=== PATIENT | male | born 1990 | race Caucasian/White ===

== ENCOUNTER 2017-01-28 17:33 | Inpatient (IN) | payer MEDICARE, MEDICAID ==
--- NOTE | 2017-01-28 18:39 | ED ---
General Adult HPI - General Source: patient, family, RN notes reviewed Mode of arrival: ambulatory Limitations: no limitations <Dayday Skaggs - Last Filed: 01/28/17 18:36> <Dayday Hooks - Last Filed: 01/29/17 01:39> - General Chief complaint: Psychiatric Symptoms Stated complaint: MENTAL HEALTH Time Seen by Provider: 01/28/17 18:18 - History of Present Illness Initial comments: 26 yo male presenting for evaluation of psychiatric symptoms, and alcoholism. Patient denies current suicidal ideation, however he states he tends suicide at times. Denies homicidal ideation. Patient has had multiple inpatient psychiatric admissions. He is currently on Geodon which he does not like to take. Patient is unable to clearly articulate his symptoms. He states he has been on the cover of [employer] today and that he is very famous. 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 ( Dayday Skaggs) - Related Data Home Medications Medication Instructions Recorded Confirmed Gabapentin [Neurontin] 400 mg PO BID 01/28/17 01/28/17 Multivitamins, Thera [Multivitamin 1 tab PO DAILY 01/28/17 01/28/17 (formulary)] Topiramate [Topamax] 25 mg PO BID 01/28/17 01/28/17 Ziprasidone [Geodon] 60 mg PO BID 01/28/17 01/28/17 Allergies Allergy/AdvReac Type Severity Reaction Status Date / Time aripiprazole [From Abilify] Allergy Swelling Verified 01/28/17 17:55 Review of Systems ROS Other: All systems not noted in ROS Statement are negative. <Dayday Skaggs - Last Filed: 01/28/17 18:36> ROS Other: All systems not noted in ROS Statement are negative. <Dayday Hooks - Last Filed: 01/29/17 01:39> ROS Statement: Those systems with pertinent positive or pertinent negative responses have been documented in the HPI. Past Medical History Past Medical History: No Reported History History of Any Multi-Drug Resistant Organisms: None Reported Past Surgical History: No Surgical Hx Reported Past Psychological History: Bipolar Smoking Status: Current every day smoker Past Alcohol Use History: Abuse, Daily Past Drug Use History: Marijuana <Dayday Skaggs - Last Filed: 01/28/17 18:36> General Exam Limitations: no limitations General appearance: alert, in no apparent distress Head exam: Present: atraumatic, normocephalic Eye exam: Present: normal appearance, PERRL ENT exam: Present: normal exam, mucous membranes moist Neck exam: Present: normal inspection. Absent: tenderness Respiratory exam: Present: normal lung sounds bilaterally. Absent: respiratory distress Cardiovascular Exam: Present: regular rate, normal rhythm GI/Abdominal exam: Present: soft. Absent: distended, tenderness Extremities exam: Present: normal inspection, normal capillary refill. Absent: pedal edema Psychiatric exam: Present: agitated, manic Skin exam: Present: warm, dry, intact <Dayday Skaggs - Last Filed: 01/28/17 18:36> Course <Dayday Skaggs - Last Filed: 01/28/17 18:36> <Dayday Hooks - Last Filed: 01/29/17 01:39> Vital Signs 01/28/17 01/28/17 17:51 21:56 Temperature 98.1 F 97.8 F Pulse Rate 94 91 Respiratory 20 16 Rate Blood Pressure 135/89 132/72 O2 Sat by Pulse 98 99 Oximetry - Reevaluation(s) Reevaluation #1: 01/29/17 01:39 The patient was evaluated by psychiatric service after he was deemed to be sober. Patient will be admitted for inpatient care. (Dayday Hooks) Medical Decision Making <Dayday Skaggs - Last Filed: 01/28/17 18:36> <Dayday Hooks - Last Filed: 01/29/17 01:39> - Medical Decision Making Patient's breath alcohol is 240. Urine drug screen is pending. Awaiting clinical sobriety for psychiatric evaluation. Patient be signed out to the oncoming physician. (Dayday Skaggs) - Lab Data Lab Results 01/28/17 Range/Units 18:00 Urine Opiates Screen Not Detected (NotDetected) Ur Oxycodone Screen Not Detected (NotDetected) Urine Methadone Screen Not Detected (NotDetected) Ur Propoxyphene Screen Not Detected (NotDetected) Ur Barbiturates Screen Not Detected (NotDetected) U Tricyclic Antidepress Not Detected (NotDetected) Ur Phencyclidine Scrn Not Detected (NotDetected) Ur Amphetamines Screen Not Detected (NotDetected) U Methamphetamines Scrn Not Detected (NotDetected) U Benzodiazepines Scrn Not Detected (NotDetected) Urine Cocaine Screen Not Detected (NotDetected) U Marijuana (THC) Screen Not Detected (NotDetected) Disposition <Dayday Skaggs - Last Filed: 01/28/17 18:36> <Dayday Hooks - Last Filed: 01/29/17 01:39> Clinical Impression: Depression, Suicidal ideation, Alcohol intoxication Disposition: TRANSFER TO PSYCH HOSP/UNIT Condition: Stable Referrals: Jessee Wills DO [Primary Care Provider] - 1-2 days
[2017-01-28] MEDS ORDERED: NICOTINE 14MG/24HR PATCH TRANSDERM STA (20:23)
[2017-01-29] MEDS ORDERED: MAG HYDROX/AL HYDROX/SIMETH 30 ML CUP PO PRN (01:54)
[2017-01-29] MEDS ORDERED: ZIPRASIDONE 20 MG VIAL IM PRN (01:54)
[2017-01-29] MEDS ORDERED: MAGNESIUM HYDROXIDE 2,400 MG/10 ML CUP PO PRN (01:54)
[2017-01-29] MEDS ORDERED: ACETAMINOPHEN TAB 325 MG TAB PO PRN (01:54)
[2017-01-29] MEDS ORDERED: LORazepam 1 MG TAB PO PRN (01:54)
[2017-01-29 06:27] VITALS: BMI 21.2
[2017-01-29 08:57] LABS: Basophils # (A) 0.1 k/uL (0-0.2); Basophils % (A) 1 %; CH 35.6; CHCM 34.5; Eosinophils # (A) 0.1 k/uL (0-0.7); Eosinophils % (A) 2 %; HCT 51.1 % (39.0-53.0); HDW 2.01; HGB 17.1 gm/dL (13.0-17.5); Luc # (Auto) 0.14; Luc % (Auto) 2; Lymphocytes # (A) 1.9 k/uL (1.0-4.8); Lymphocytes % (A) 25 %; MCH 34.7 pg (25.0-35.0); MCHC 33.6 g/dL (31.0-37.0); MCV 103.5 fL (80.0-100.0); Macrocytosis Slight; Mean Platelet Volume 7.5; Monocytes # (A) 0.5 k/uL (0-1.0); Monocytes % (A) 7 %; Neutrophils # (A) 4.9 k/uL (1.3-7.7); Neutrophils % (A) 64 %; RBC 4.94 m/uL (4.30-5.90); RDW 13.3 % (11.5-15.5); WBC 7.7 k/uL (3.8-10.6); WBC (Perox) 7.69
[2017-01-29 09:23] LABS: ALT 49 U/L (21-72); AST 41 U/L (17-59); Alkaline Phosphatase 59 U/L (38-126); Anion Gap 10 mmol/L; Blood Urea Nitrogen 8 mg/dL (9-20); Calcium 9.6 mg/dL (8.4-10.2); Carbon Dioxide 31 mmol/L (22-30); Chloride 98 mmol/L (98-107); Glucose 145 mg/dL (74-99); Non-African American GFR(MDRD) >60 (>60 ml/min/1.73 sqM); Potassium 4.7 mmol/L (3.5-5.1); Sodium 139 mmol/L (137-145); Total Protein 7.4 g/dL (6.3-8.2)
[2017-01-29] MEDS: NICOTINE 14MG/24HR PATCH TRANSDERM SCH (09:57)
--- NOTE | 2017-01-29 13:26 | P.MDCNMH ---
History of Present Illness H&P Date: 01/29/17 Chief Complaint: Bipolar disorder This is a 26-year-old male patient of Dr. Hernandez with no significant past medical history other than bipolar and tobacco use and dependence and alcohol abuse. Patient states he follows with Dr. Cardoso one time a year or less frequently for physical exams only. Patient states that he is drinking 2 bottles of wine per day or 15 pack of beer per day. He came into [facility] emergency center for evaluation and he did relate that he had suicidal thoughts at times but during this evaluation, patient denies any suicidal thoughts but states he threatens it to get attention. He has had previous mental health admissions at other facilities and apparently when he was 20 or 21 years old he was hospitalized at [facility] mental health unit. Patient does not have flight of ideas and difficulty focusing on questions asked. He is cooperative. He is denying any physical concerns at this time but does state that he has had trouble with insomnia. Review of Systems All systems: negative Constitutional: Denies chills, Denies fever Eyes: denies blurred vision, denies pain Ears, nose, mouth and throat: Denies headache, Denies sore throat Cardiovascular: Denies chest pain, Denies shortness of breath Respiratory: Denies cough Gastrointestinal: Denies abdominal pain, Denies diarrhea, Denies nausea, Denies vomiting Musculoskeletal: Denies myalgias Integumentary: Denies pruritus, Denies rash Neurological: Denies numbness, Denies weakness Psychiatric: Reports depression, Reports mood swings, Denies anxiety, Denies suicidal ideation Endocrine: Denies fatigue, Denies weight change Past Medical History Past Medical History: No Reported History History of Any Multi-Drug Resistant Organisms: None Reported Past Surgical History: No Surgical Hx Reported Smoking Status: Current every day smoker Additional Past Alcohol Use History / Comment(s): Patient is a smoker of one pack per day since he was 17 years of age. He does have history of marijuana use and Adderall abuse but he denies any recently. He denies any marijuana use. He is drinking 2 bottles of wine per day or 15 pack of beer per day. - Past Family History Father Additional Family Medical History / Comment(s): Father is alive at age 52 with history of alcohol abuse. Mother Additional Family Medical History / Comment(s): Mother is alive at age 51 with history of diabetes. Patient does not have any brothers. Patient has 2 sisters and one has anxiety. Medications and Allergies Home Medications Medication Instructions Recorded Confirmed Type Gabapentin [Neurontin] 400 mg PO BID 01/28/17 01/29/17 History Multivitamins, Thera [Multivitamin 1 tab PO DAILY 01/28/17 01/29/17 History (formulary)] Topiramate [Topamax] 25 mg PO BID 01/28/17 01/29/17 History Ziprasidone [Geodon] 60 mg PO BID 01/28/17 01/29/17 History Allergies Allergy/AdvReac Type Severity Reaction Status Date / Time aripiprazole [From Abilify] Allergy Swelling Verified 01/29/17 06:27 Physical Exam Vitals: Vital Signs Temp Pulse Pulse Resp BP BP Pulse Ox 01/29/17 05:46 96.7 F L 78 16 124/60 01/29/17 02:46 98.3 F 89 17 128/76 99 01/28/17 21:56 97.8 F 91 16 132/72 99 01/28/17 17:51 98.1 F 94 20 135/89 98 Intake and Output 01/28/17 01/29/17 01/29/17 22:59 06:59 14:59 Other: Weight 68.946 kg 68.95 kg Gen: This is a 26-year-old male. He is cooperative and appears to be in no acute distress. Patient does have difficulty staying on topic. HEENT: Head is atraumatic, normocephalic. Pupils equal, round. Sclerae is anicteric. NECK: Supple. No JVD. No lymphadenopathy. No thyromegaly. LUNGS: Clear to auscultation. No wheezes or rhonchi. No intercostal retractions. HEART: Regular rate and rhythm. No murmur. ABDOMEN: Soft. Bowel sounds are present. No masses. No tenderness. EXTREMITIES: No pedal edema. No calf tenderness. NEUROLOGICAL: Patient is awake, alert and oriented x3. Cranial nerves 2 through 12 are grossly intact. Cranial Nerve Examination - Cranial Nerves Cranial Nerve II- Optic: Intact Cranial Nerve III- Oculomotor: Intact Cranial Nerve IV- Trochlear: Intact Cranial Nerve V- Trigeminal: Intact Cranial Nerve - Abducens: Intact Cranial Nerve VII- Facial: Intact Cranial Nerve VIII- Auditory: Intact Cranial Nerve IX- Glossopharyngeal: Intact Cranial Nerve X- Vagus: Intact Cranial Nerve XI- Accessory: Intact Cranial Nerve XII- Hypoglossal: Intact Results CBC & Chem 7: 01/29/17 08:43 01/29/17 08:43 Labs: Abnormal Lab Results - Last 24 Hours (Table) 01/29/17 01/29/17 Range/Units 08:43 08:43 MCV 103.5 H (80.0-100.0) fL Carbon Dioxide 31 H (22-30) mmol/L BUN 8 L (9-20) mg/dL Glucose 145 H (74-99) mg/dL Assessment and Plan Plan: 1. Bipolar disorder. Patient admitted to the mental health unit. Continue current plan of care. 2. Tobacco use and dependence. Continue nicotine patch. 3. Alcohol abuse. Continue Ativan as needed. Thiamine and multivitamin will be added. Impression and plan of care have been directed as dictated by the signing physician. Kyra Brandt nurse practitioner acting as scribe for signing physician.
[2017-01-29] MEDS: LITHIUM CARBONATE 300 MG CAP PO SCH ×2 (15:50→21:39)
[2017-01-30] MEDS: NICOTINE 14MG/24HR PATCH TRANSDERM SCH (08:57)
[2017-01-30] MEDS: LITHIUM CARBONATE 300 MG CAP PO SCH ×2 (08:58→21:26)
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
[2017-01-30 11:50] LABS: Appearance,Urine Clear (Clear); Bilirubin,Urine Negative (Negative); Glucose,Urine (UA) Negative (Negative); Ketones,Urine Negative (Negative); Leukocyte Esterase,Urine Negative (Negative); Nitrite,Urine Negative (Negative); Protein,Urine Negative (Negative); Specific Gravity,Urine 1.003 (1.001-1.035); UA Billing (MACRO vs. MICRO) CHEM; Urobilinogen,Urine <2.0 mg/dL (<2.0)
[2017-01-30] MEDS: MULTIVITAMINS, THERA 1 EACH TAB PO SCH (12:03)
[2017-01-30] MEDS: THIAMINE 100 MG TAB PO SCH (12:03)
--- NOTE | 2017-01-30 18:52 | PN ---
DATE OF SERVICE: 01/30/2017 CHIEF COMPLAINT: The patient was intoxicated. He was disorganized in his thoughts. He had grandiose delusions about being on the cover of magazines and being a famous person. He was admitted on petition for involuntary hospitalization. INTERVAL HISTORY: The patient has been doing fair. He had a quiet evening last night. He slept well. Today he has been up and about. He does attend groups. He tends to keep to himself. 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 He reported no problems with starting up of lithium. He feels that things are going fairly well for him today. When I talked to him about issues with his parents, including the possibility of setting up a family meeting, he was reluctant to consider that. He gave vague suggestions that they do not understand him, and it may be a distressing situation for him. He was in agreement with me contacting his mother , who had signed an initial petition. 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 He has had manic episodes where he gets erratic and disorganized behavior. Since June he has had some ups and downs in how he was functioning, with some periods where he would come back home from [place] for short periods of time and get things a little more on an even keel. He was in [place] in October and called his mother, stating, "I'm in trouble. " He was hospitalized for 2 weeks at that time in [place] and then came home and has been home since then. He has been up and down in his mood. He has had pretty consistent complaints about not liking the effects of Geodon. His mother states that he has delusions of unreality such as things like that he will become president. He first developed symptoms of bipolar disorder in July 2010 and had 2 hospitalizations at that time. His mother noted that, as a younger person and in his growing up, he was very social and outgoing, and in recent times he has become much more withdrawn and avoidant. Two big issues that his mother emphasized regarding his current situation are: 1) he is not consistent with his medications or will simply stop taking his medications; and 2) he may have more underlying difficulties and distress that might not be immediately apparent in how he presents himself. The patient has not had change in his general health. He tolerates his psychotropic medication. MENTAL STATUS: Patient gave good eye contact. Psychomotor activity and speech were fairly normal. His thoughts were clear. He was not too spontaneous, though he was somewhat interactive. His affect was a little constricted. His mood was quiet. He did not appear to be depressed. He did not show hypomanic or manic symptoms. There was no immediate evidence for a thought disorder. ASSESSMENT: I will continue the current diagnosis and treatment plan. The patient will continue lithium carbonate 900 mg twice a day. Will get a lithium level tomorrow. I had an extensive discussion with the patient regarding lithium issues, including the need for blood tests periodically to assess lithium level. We had a brief discussion about lithium toxicity. It is noted that the patient's issues regarding how he sees his parents and the reluctance about a family meeting are suggestive of paranoia. That may be underlying his condition. The paranoia may be part of his tendency towards social withdrawal. The patient ultimately was in agreement with a family meeting, which I would aim for towards the end of the week. I would note that in discussion with the patient's mother, she seemed to have a clear understanding of his history and issues. She presented in a reasonable and appropriate manner with appropriate concern. She seemed to present as a supportive parent. Will continue to focus on stabilization and discharge planning. RICK
[2017-01-31] MEDS: LITHIUM CARBONATE 300 MG CAP PO SCH ×2 (08:45→21:39)
[2017-01-31] MEDS: NICOTINE 14MG/24HR PATCH TRANSDERM SCH (08:45)
--- NOTE | 2017-01-31 10:53 | P.PN ---
Progress Note - Text INTERVERAL HISTORY: Patient discussed at treatment team meeting, review of record, met with patient Staff reports he has improved with the initiation of lithium not as grandiose. Patient was paged to the nurse's station and came immediately pleasant cooperative. Patient reports that he is feeling better with lithium thinks that it's going to work for him. Speaks about wanting to have some stability in his life, wanting to be a teacher. We discussed some of the issues related to being stable and that lithium certainly is helpful however the problem is that frequently oral medicines are either forgotten to be taken or as he stated he gets into a power struggle with people who ask him about taking medicines. Patient agreed to give a try to a long-acting medication. MENTAL STATUS EXAM:Patient alert and oriented 3, good eye contact, well groomed in street clothing. Speech normal volume, increased rate and production. No pressured speech but a slight push, had to interrupt. Coherent, logical and goal directed for the most part but some circumstantial thought process. No JANI, no FOI. [No TB/TW/TI] Denied auditory and visual hallucinations. Denied paranoid ideation, delusions or IOR. Mood euthymic, affect full range, congruent with mood. Denies suicidal ideation, denies homicidal ideation. Insight partial; Judgement grossly intact for treatment purposes PLAN: Continue with inpatient psychiatric admission, for safety and stabilization.. Suicide precautions every 15 minute checks Continue current medication. [place] 900 twice a day. Check blood level Sunday AM. Will start risperidone 1 mg every morning with goal of moving to Risperdal Consta if tolerates oral medication Milieu therapy. Social work to arrange family conference
[2017-01-31] MEDS: MULTIVITAMINS, THERA 1 EACH TAB PO SCH (12:19)
[2017-01-31] MEDS: THIAMINE 100 MG TAB PO SCH (12:19)
[2017-01-31] MEDS: risperiDONE 1 MG TAB PO SCH (14:40)
[2017-02-01] MEDS: risperiDONE 1 MG TAB PO SCH (09:15)
[2017-02-01] MEDS: NICOTINE 14MG/24HR PATCH TRANSDERM SCH (09:15)
[2017-02-01] MEDS: LITHIUM CARBONATE 300 MG CAP PO SCH ×2 (09:16→19:56)
[2017-02-01] MEDS: THIAMINE 100 MG TAB PO SCH (11:50)
[2017-02-01] MEDS: MULTIVITAMINS, THERA 1 EACH TAB PO SCH (11:50)
[2017-02-01] MEDS ORDERED: risperiDONE 1 MG TAB PO STA (12:39)
--- NOTE | 2017-02-01 12:43 | P.PN ---
Progress Note - Text INTERVERAL HISTORY: Patient discussed at treatment team meeting, review of record, met with patient Staff reports he has improved with the initiation of lithium not as grandiose. Patient reports that he is feeling better that he had approximately 7 hours of sleep last night. Denies any side effects to lithium or to risperidone which was started yesterday. States that he called his grandmother and said that he really thinks that this is good to be the right medication. No thoughts that are grandiose reported today, speech normal. Patient agreed to give a try to a long-acting medication. MENTAL STATUS EXAM:Patient alert and oriented 3, good eye contact, well groomed in street clothing. Speech normal volume, increased rate and production. No pressured speech but a slight push, had to interrupt. Coherent, logical and goal directed for the most part but some circumstantial thought process. No JANI, no FOI. [No TB/TW/TI] Denied auditory and visual hallucinations. Denied paranoid ideation, delusions or IOR. Mood euthymic, affect full range, congruent with mood. Denies suicidal ideation, denies homicidal ideation. Insight partial; Judgement grossly intact for treatment purposes PLAN: Continue with inpatient psychiatric admission, for safety and stabilization.. Suicide precautions every 15 minute checks Continue current medication. [place] 900 twice a day. Check blood level Sunday AM. Increase risperidone 2 mg this morning, 3 mg tomorrow morning. If no side effects will likely start Risperdal Consta next week. We'll check lithium level on Sunday morning Milieu therapy. Social work to arrange family conference
[2017-02-02 03:16] VITALS: RESP 16
[2017-02-02] MEDS: risperiDONE 1 MG TAB PO SCH (08:33)
[2017-02-02] MEDS: LITHIUM CARBONATE 300 MG CAP PO SCH ×2 (08:33→20:22)
[2017-02-02] MEDS: NICOTINE 14MG/24HR PATCH TRANSDERM SCH (08:33)
[2017-02-02] MEDS: MULTIVITAMINS, THERA 1 EACH TAB PO SCH (12:34)
[2017-02-02] MEDS: THIAMINE 100 MG TAB PO SCH (12:34)
--- NOTE | 2017-02-02 15:01 | P.PN ---
Progress Note - Text INTERVERAL HISTORY: Patient discussed at treatment team meeting, review of record, met with patient Staff reports he has improved no evidence of grandiose ideas. Patient reports that he is feeling better that he has not had any grandiose ideas. He reports that he continues to sleep well, has noted that maybe he feels a bit sedated in the daytime but that he is not having a problem with that . Denies any side effects to lithium or to risperidone which was started wed. States that he has had conversations with both his mother and his father, and that he feels like he is on a better track with his mother and that his father said that he really misses them. Patient is feeling hopeful that he will get control over his life and his emotions. No thoughts that are grandiose reported today, speech normal. Patient agreed to give a try to a long-acting medication. MENTAL STATUS EXAM:Patient alert and oriented 3, good eye contact, well groomed in street clothing. Speech normal volume, increased rate and production. No pressured speech but a slight push, had to interrupt. Coherent, logical and goal directed for the most part but some circumstantial thought process. No JANI, no FOI. [No TB/TW/TI] Denied auditory and visual hallucinations. Denied paranoid ideation, delusions or IOR. Mood euthymic, affect full range, congruent with mood. Denies suicidal ideation, denies homicidal ideation. Insight partial; Judgement grossly intact for treatment purposes PLAN: Continue with inpatient psychiatric admission, for safety and stabilization.. Suicide precautions every 15 minute checks Continue current medication. [place] 900 twice a day. Check blood level Sunday AM. Continue risperidone by mouth 3 mg every morning . Start Risperdal Consta today. We'll check lithium level on Sunday morning Milieu therapy. Family conference tomorrow, if this goes well discharge tomorrow.
--- NOTE | 2017-02-02 15:05 | P.DS ---
Providers Date of admission: 01/29/17 01:38 Expected date of discharge: 02/03/17 Attending physician: María Higginbotham MD Consults: 01/29/17 01:54 Consult Physician Routine Consulting Provider: Tabby De La Vega Consult Reason/Comments: medical management Do you want consulting provider notified?: Yes, Notify in am Primary care physician: [facility] Course: BRIEF ADMISSION HISTORY: Patient was admitted from the emergency room, patient was intoxicated, he had disorganization in his thought process, grandiose delusions about being on the cover of magazines and being a famous person he was on a petition for an involuntary hospitalization. Patient has a long-term history of psychiatric issues he has been diagnosed with bipolar disorder since age 20 he has had 2 psychiatric hospitalizations since that time he is able to identify manic episodes where he would become excessively active with high energy, decreased need for sleep impulsivity, poor judgment and racing thoughts he also had one episode of depression where he withdrew and became quite hopeless. He apparently had one psychiatric hospitalization just 7 weeks ago at [facility] in [facility] and he had been discharged on a combination of Topamax and Geodon he recently went off of Geodon and was not taking Topamax either. on a petition by family members. Patient was manic and brought to the emergency room and admitted to [facility]. Patient was able to sign a voluntary form. HOSPITAL COURSE: Patient was allowed to sign in voluntarily. Patient was started on lithium, eventually 900 mg twice a day, blood tests will be tomorrow Sunday. Assessments shows that patient had several attempts at medication and he would always stop the medication, eventually become manic and psychotic. One trial of Abilify caused dystonic reaction which is rare. We talked about stability and he agreed to a Depo medication and since Abilify was not tolerated the only other choice for bipolar disorder would be consta He tolerated lithium and risperidone. There was no evidence of dystonia. AIMS was negative. Patient began to sleep 7-8 hours. The grandiose ideas eventually subsided. He was pleasant and cooperative. Sunday, February 02 patient received Risperdal consta 12.5 mg. No suicidal ideation. Safe for discharge ADMISSION DIAGNOSES: Bipolar disorder type I,MRE manic Alcohol use disorder, severe Rule out posttraumatic stress disorder Possible personality disorder DISCHARGE DIAGNOSES: Bipolar disorder type I, MRE manic, resolved Alcohol use disorder, severe, in remission Rule out posttraumatic stress disorder PLAN: Discharge February 03 after the family meeting if it goes well and all agree. [place] level will be drawn tomorrow morning and as long as it's not above 0.9 she will continue with the current dose it appears to have managed the dione. Risperdal 3 mg every morning. Will give a prescription for Risperdal Consta 12.5mg for injection in 2 weeks. Social work has set [facility] follow-up. Pertinent Studies: none Procedures: none Patient Condition at Discharge: Good Plan - Discharge Summary New Discharge Prescriptions: New [place] Carbon[place] 900 mg PO BID #180 cap risperiDONE [RisperDAL] 3 mg PO DAILY #30 tab Continue Multivitamins, Thera [Multivitamin (formulary)] 1 tab PO DAILY Gabapentin [Neurontin] 400 mg PO BID Discontinued Ziprasidone [Geodon] 60 mg PO BID Topiramate [Topamax] 25 mg PO BID Discharge Medication List Gabapentin [Neurontin] 400 mg PO BID 01/28/17 [History] Multivitamins, Thera [Multivitamin (formulary)] 1 tab PO DAILY 01/28/17 [History ] [place] Carbonate 900 mg PO BID #180 cap 02/02/17 [Rx] risperiDONE [RisperDAL] 3 mg PO DAILY #30 tab 02/02/17 [Rx] Follow up Appointment(s)/Referral(s): [facility] [Outside] - 02/05/17 10:00 am (Intake 02/05/17 at 10:00 am with [place]) Jessee Wills DO [STAFF PHYSICIAN] - 1-2 days
[2017-02-03 07:01] VITALS: BP 113/59; PULSE 70; TEMP 98.2
[2017-02-03] MEDS: NICOTINE 14MG/24HR PATCH TRANSDERM SCH (08:54)
[2017-02-03] MEDS: LITHIUM CARBONATE 300 MG CAP PO SCH (08:54)
[2017-02-03] MEDS: risperiDONE 1 MG TAB PO SCH (08:54)
[2017-02-03] MEDS: MULTIVITAMINS, THERA 1 EACH TAB PO SCH (12:18)
[2017-02-03] MEDS: THIAMINE 100 MG TAB PO SCH (12:18)
[2017-02-04] MEDS: NICOTINE 14MG/24HR PATCH TRANSDERM SCH (10:08)
[2017-02-04] MEDS: risperiDONE 1 MG TAB PO SCH (10:08)
--- NOTE | 2017-02-04 10:30 | P.PN ---
Progress Note - Text Interval history: The patient is found in the hallway he follows me to an interview room. The Depakote level from this morning was reviewed 0.4. We discussed reducing his lithium to 300 mg 3 times daily and he is agreeable. He continues to have no suicidal or homicidal ideation intent or plan. Sleep is stable he has appropriately been attending groups and participating in the milieu. We reviewed the lithium and Risperdal again regarding they're intended purposes. Mental status exam: The patient is alert he demonstrates good hygiene grooming he's pleasant and cooperative. Speech is fluent spontaneous nonpressured. He demonstrates no tangential thinking loose associations or flight of ideas. He is endorsing no auditory or visual hallucinations or any specific delusions. He demonstrates no verbal or physical aggressiveness. There is no evidence of abnormal involuntary movements. Insight and judgment are improving. He remains oriented to person place and date. His affect is appropriately expressive. He reports no suicidal or homicidal ideation intent or plan. Plan: The patient's lithium carbonate will be changed to 300 mg 3 times daily. We will proceed with discharging him today. He is referred to Dr. Higginbotham's discharge summary.
[2017-02-04] MEDS ORDERED: LITHIUM CARBONATE 300 MG CAP PO STA (10:31)
[2017-02-04] MEDS: THIAMINE 100 MG TAB PO SCH (11:16)
[2017-02-04] MEDS: MULTIVITAMINS, THERA 1 EACH TAB PO SCH (11:16)
== END 2017-02-04 11:22 | disposition home or self-care (01) | DRG 885 ==
LOC: EC 17:33 → EEVIPCON 17:33 → 3MHU 01-29 01:38
PROVIDERS: ADMIT Psychiatry & Neurology Addiction Medicine; ATTEND Psychiatry & Neurology Addiction Medicine
DX: F31.9 Bipolar disorder, unspecified (principal); R45.851 Suicidal ideations; F41.0 Panic disorder [episodic paroxysmal anxiety]; F10.21 Alcohol dependence, in remission; F17.200 Nicotine dependence, unspecified, uncomplicated; Z79.899 Other long term (current) drug therapy; F43.10 Post-traumatic stress disorder, unspecified
CPT/HCPCS: 80053; 80178; 80306; 81003; 82075; 84443; 85025; 99285

== ENCOUNTER 2017-03-12 17:30 | Inpatient (IN) | payer MEDICARE, MEDICAID ==
--- NOTE | 2017-03-12 18:08 | ED ---
Psych HPI - General Chief Complaint: Psychiatric Symptoms Stated Complaint: Mental Health (Bi-Polar) Time Seen by Provider: 03/12/17 17:49 Source: patient, RN notes reviewed Mode of arrival: ambulatory - History of Present Illness Initial Comments: This is a 26-year-old male with a history of bipolar disorder who is here for evaluation for persistent episodes of mony. He did having multiple panic episodes recently. 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 He started drinking alcohol. He states he has been living in his father's house with his father's friends are drug abusers an alcoholic some cells. He states that he called his mother who is his guardian about getting his medications she stated to him good luck. He seems to have no suicidal thoughts or ideation but he is very frustrated from his bipolar disorder. He states he has been taking lithium but has a difficult time with it. He does admit to using marijuana but no alcohol or other drugs. Additionally the patient does state when he gets stressed which is around holidays and right now he gets lesions in his axilla and groin area he does have some right now. He denies any fevers chills sweats or other symptoms MD Complaint: feels depressed - Related Data Home Medications Medication Instructions Recorded Confirmed Gabapentin [Neurontin] 400 mg PO BID 01/28/17 03/12/17 Multivitamins, Thera [Multivitamin 1 tab PO DAILY 01/28/17 03/12/17 (formulary)] Albuterol Inhaler [Ventolin Hfa 1 - 2 puff INHALATION RT-Q6H PRN 03/12/17 Inhaler] MDD NEVER STARTED Nicotine 21Mg/24Hr Patch [Habitrol 1 patch TRANSDERM DAILY 03/12/17 03/12/17 21Mg/24Hr Patch] Thiamine [Vitamin B-1] 100 mg PO DAILY 03/12/17 03/12/17 risperiDONE MICROSPHERES 12.5 mg IM Q14D 03/12/17 03/12/17 [RisperDAL CONSTA] Previous Rx's Medication Instructions Recorded [place] Carbonate 300 mg PO TID #90 capsule 02/04/17 Allergies Allergy/AdvReac Type Severity Reaction Status Date / Time aripiprazole [From Abicaitlyn] Allergy Swelling Verified 03/12/17 18:19 milk Allergy Nausea & Verified 03/12/17 18:19 Vomiting & Diarrhea Review of Systems ROS Statement: Those systems with pertinent positive or pertinent negative responses have been documented in the HPI. ROS Other: All systems not noted in ROS Statement are negative. Past Medical History Past Medical History: No Reported History History of Any Multi-Drug Resistant Organisms: None Reported Past Surgical History: No Surgical Hx Reported Past Psychological History: Bipolar Smoking Status: Current every day smoker Past Alcohol Use History: Occasional Past Drug Use History: Marijuana - Past Family History Father Additional Family Medical History / Comment(s): Father is alive at age 52 with history of alcohol abuse. Mother Additional Family Medical History / Comment(s): Mother is alive at age 51 with history of diabetes. Patient does not have any brothers. Patient has 2 sisters and one has anxiety. General Exam - General Exam Comments Initial Comments: This is a well-developed well-nourished awake alert oriented 3 male Limitations: no limitations General appearance: alert, in no apparent distress Head exam: Present: atraumatic, normocephalic, normal inspection Eye exam: Present: normal appearance, PERRL, EOMI. Absent: scleral icterus, conjunctival injection, periorbital swelling ENT exam: Present: normal exam, mucous membranes moist Neck exam: Present: normal inspection. Absent: tenderness, meningismus, lymphadenopathy Respiratory exam: Present: normal lung sounds bilaterally. Absent: respiratory distress, wheezes, rales, rhonchi, stridor Cardiovascular Exam: Present: regular rate, normal rhythm, normal heart sounds. Absent: systolic murmur, diastolic murmur, rubs, gallop, clicks GI/Abdominal exam: Present: soft, normal bowel sounds. Absent: distended, tenderness, guarding, rebound, rigid Extremities exam: Present: normal inspection, full ROM, normal capillary refill. Absent: tenderness, pedal edema, joint swelling, calf tenderness Back exam: Present: normal inspection Neurological exam: Present: alert, oriented X3, CN II-XII intact Psychiatric exam: Present: depressed, anxious Skin exam: Present: warm, dry, normal color, other (Patient does have several areas of healing folliculitis was a left groin and 1 each is right and left axillary areas. No evidence of any drainable abscess at this time.). Absent: rash Course Vital Signs 03/12/17 17:36 Temperature 97.5 F L Pulse Rate 80 Respiratory 18 Rate Blood Pressure 120/74 O2 Sat by Pulse 97 Oximetry Medical Decision Making - Medical Decision Making The patient was evaluated by psychiatric service and will be admitted for inpatient treatment. - Lab Data Lab Results 03/12/17 03/12/17 Range/Units 18:58 21:10 Urine Opiates Screen Not Detected (NotDetected) Ur Oxycodone Screen Not Detected (NotDetected) Urine Methadone Screen Not Detected (NotDetected) Ur Propoxyphene Screen Not Detected (NotDetected) Ur Barbiturates Screen Not Detected (NotDetected) U Tricyclic Antidepress Not Detected (NotDetected) Ur Phencyclidine Scrn Not Detected (NotDetected) Ur Amphetamines Screen Detected H (NotDetected) U Methamphetamines Scrn Not Detected (NotDetected) U Benzodiazepines Scrn Not Detected (NotDetected) [place] 0.4 mmol/L Urine Cocaine Screen Not Detected (NotDetected) U Marijuana (THC) Screen Not Detected (NotDetected) Disposition Clinical Impression: Depression, Mony (monopolar) single episode or unspecified, Folliculitis Disposition: TRANSFER TO PSYCH HOSP/UNIT Condition: Stable Referrals: Efrain Cardoso MD [Primary Care Provider] - 1-2 days
[2017-03-12] MEDS ORDERED: SULFAMETHOX-TMP 800-160MG 1 EACH TAB PO STA (23:46)
[2017-03-13] MEDS ORDERED: ACETAMINOPHEN TAB 325 MG TAB PO PRN (01:37)
[2017-03-13] MEDS ORDERED: MAGNESIUM HYDROXIDE 2,400 MG/10 ML CUP PO PRN (01:37)
[2017-03-13] MEDS ORDERED: MAG HYDROX/AL HYDROX/SIMETH 30 ML CUP PO PRN (01:37)
[2017-03-13] MEDS ORDERED: LORazepam 1 MG TAB PO PRN (01:37)
[2017-03-13] MEDS ORDERED: ZIPRASIDONE 20 MG VIAL IM PRN (01:37)
[2017-03-13] MEDS ORDERED: ALBUTEROL INHALER 60 PUFF/8 GM INHALER INHALATION PRN (01:40)
[2017-03-13] MEDS ORDERED: LORazepam 2 MG/ML SYRINGE IM PRN (01:42)
[2017-03-13] MEDS ORDERED: GABAPENTIN 400 MG CAP PO SCH (09:00)
[2017-03-13] MEDS ORDERED: LITHIUM CARBONATE 300 MG CAP PO SCH (09:00)
[2017-03-13 09:31] LABS: Basophils % (A) 0 %; CH 33.6; CHCM 33.8; Eosinophils # (A) 0.2 k/uL (0-0.7); Eosinophils % (A) 2 %; HCT 44.8 % (39.0-53.0); HDW 2.14; HGB 15.2 gm/dL (13.0-17.5); Luc # (Auto) 0.12; Luc % (Auto) 1; Lymphocytes # (A) 1.8 k/uL (1.0-4.8); Lymphocytes % (A) 14 %; MCH 33.8 pg (25.0-35.0); MCHC 33.9 g/dL (31.0-37.0); MCV 99.8 fL (80.0-100.0); Mean Platelet Volume 7.2; Monocytes # (A) 0.7 k/uL (0-1.0); Monocytes % (A) 5 %; Neutrophils # (A) 10.6 k/uL (1.3-7.7); Neutrophils % (A) 79 %; RBC 4.48 m/uL (4.30-5.90); RDW 11.6 % (11.5-15.5); WBC 13.5 k/uL (3.8-10.6); WBC (Perox) 13.66
[2017-03-13 09:45] LABS: ALT 31 U/L (21-72); AST 16 U/L (17-59); Alkaline Phosphatase 56 U/L (38-126); Anion Gap 8 mmol/L; Blood Urea Nitrogen 9 mg/dL (9-20); Carbon Dioxide 29 mmol/L (22-30); Chloride 105 mmol/L (98-107); Cholesterol 128 mg/dL (<200); Glucose 72 mg/dL (74-99); HDL Cholesterol 48 mg/dL (40-60); Non-African American GFR(MDRD) >60 (>60 ml/min/1.73 sqM); Potassium 4.5 mmol/L (3.5-5.1); Sodium 142 mmol/L (137-145); Total Bilirubin 0.4 mg/dL (0.2-1.3); Total Protein 6.6 g/dL (6.3-8.2)
[2017-03-13] MEDS: MULTIVITAMINS, THERA 1 EACH TAB PO SCH (09:52)
[2017-03-13] MEDS: THIAMINE 100 MG TAB PO SCH (09:52)
[2017-03-13] MEDS: NICOTINE 14MG/24HR PATCH TRANSDERM SCH (09:53)
[2017-03-13 11:09] LABS: Hemoglobin A1C 5.2 % (4.2-6.1)
[2017-03-13] MEDS: ALBUTEROL INHALER 60 PUFF/8 GM INHALER INHALATION PRN (13:31)
--- NOTE | 2017-03-13 15:00 | P.HP ---
Psychiatric H&P - . H&P Date: 03/13/17 History & Physical: Allergies Allergy/AdvReac Type Severity Reaction Status Date / Time aripiprazole [From [facility]] Allergy Swelling Verified 03/12/17 18:19 milk Allergy Nausea & Verified 03/12/17 18:19 Vomiting & Diarrhea Vital Signs Temp 97.5 F L 03/13/17 00:10 Pulse 89 03/13/17 00:10 Resp 16 03/13/17 00:10 BP 100/71 03/13/17 00:10 Pulse Ox 97 03/13/17 00:10 Intake & Output 03/12/17 03/13/17 03/13/17 18:59 06:59 18:59 Weight 72.575 kg 74.1 kg Laboratory Last Values WBC 13.5 k/uL (3.8-10.6) H 03/13/17 09:12 RBC 4.48 m/uL (4.30-5.90) 03/13/17 09:12 Hgb 15.2 gm/dL (13.0-17.5) 03/13/17 09:12 Hct 44.8 % (39.0-53.0) 03/13/17 09:12 MCV 99.8 fL (80.0-100.0) 03/13/17 09:12 MCH 33.8 pg (25.0-35.0) 03/13/17 09:12 MCHC 33.9 g/dL (31.0-37.0) 03/13/17 09:12 RDW 11.6 % (11.5-15.5) 03/13/17 09:12 Plt Count 262 k/uL (150-450) 03/13/17 09:12 Neutrophils % 79 % 03/13/17 09:12 Lymphocytes % 14 % 03/13/17 09:12 Monocytes % 5 % 03/13/17 09:12 Eosinophils % 2 % 03/13/17 09:12 Basophils % 0 % 03/13/17 09:12 Neutrophils # 10.6 k/uL (1.3-7.7) H 03/13/17 09:12 Lymphocytes # 1.8 k/uL (1.0-4.8) 03/13/17 09:12 Monocytes # 0.7 k/uL (0-1.0) 03/13/17 09:12 Eosinophils # 0.2 k/uL (0-0.7) 03/13/17 09:12 Basophils # 0.0 k/uL (0-0.2) 03/13/17 09:12 Sodium 142 mmol/L (137-145) 03/13/17 09:12 Potassium 4.5 mmol/L (3.5-5.1) 03/13/17 09:12 Chloride 105 mmol/L (98-107) 03/13/17 09:12 Carbon Dioxide 29 mmol/L (22-30) 03/13/17 09:12 Anion Gap 8 mmol/L 03/13/17 09:12 BUN 9 mg/dL (9-20) 03/13/17 09:12 Creatinine 0.98 mg/dL (0.66-1.25) 03/13/17 09:12 Est GFR (MDRD) Af Amer >60 (>60 ml/min/1.73 sqM) 03/13/17 09:12 Est GFR (MDRD) Non-Af >60 (>60 ml/min/1.73 sqM) 03/13/17 09:12 Glucose 72 mg/dL (74-99) L 03/13/17 09:[address] Glu mg/dL 103 mg/dL 03/13/17 09:12 Hemoglobin A1c 5.2 % (4.2-6.1) 03/13/17 09:12 Calcium 9.0 mg/dL (8.4-10.2) 03/13/17 09:12 Total Bilirubin 0.4 mg/dL (0.2-1.3) 03/13/17 09:12 AST 16 U/L (17-59) L 03/13/17 09:12 ALT 31 U/L (21-72) 03/13/17 09:12 Alkaline Phosphatase 56 U/L (38-126) 03/13/17 09:12 Total Protein 6.6 g/dL (6.3-8.2) 03/13/17 09:12 Albumin 4.1 g/dL (3.5-5.0) 03/13/17 09:12 Triglycerides 103 mg/dL (<150) 03/13/17 09:12 Cholesterol 128 mg/dL (<200) 03/13/17 09:12 LDL Cholesterol, Calc 59 mg/dL (0-99) 03/13/17 09:12 HDL Cholesterol 48 mg/dL (40-60) 03/13/17 09:12 TSH 2.260 mIU/L (0.465-4.680) 03/13/17 09:12 Urine Opiates Screen Not Detected (NotDetected) 03/12/17 21:10 Ur Oxycodone Screen Not Detected (NotDetected) 03/12/17 21:10 Urine Methadone Screen Not Detected (NotDetected) 03/12/17 21:10 Ur Propoxyphene Screen Not Detected (NotDetected) 03/12/17 21:10 Ur Barbiturates Screen Not Detected (NotDetected) 03/12/17 21:10 U Tricyclic Antidepress Not Detected (NotDetected) 03/12/17 21:10 Ur Phencyclidine Scrn Not Detected (NotDetected) 03/12/17 21:10 Ur Amphetamines Screen Detected (NotDetected) H 03/12/17 21:10 U Methamphetamines Scrn Not Detected (NotDetected) 03/12/17 21:10 U Benzodiazepines Scrn Not Detected (NotDetected) 03/12/17 21:10 [place] 0.4 mmol/L 03/12/17 18:58 Urine Cocaine Screen Not Detected (NotDetected) 03/12/17 21:10 U Marijuana (THC) Screen Not Detected (NotDetected) 03/12/17 21:10 03/13/17 14:29 Identification: Patient is a 26-year-old male who had recently been admitted to the hospital from January 29 of the . Patient presents to the hospital stating that he requires admission for manic symptoms. History of Present Illness: Patient states he came to the emergency room because he was feeling manic. Patient was unable to describe what he meant by that but states that he was worried that "the world would end". Patient states he been sleeping about 5 hours a night and had recently moved into a hotel because he did not like living with his parents. Patient states his friends brought him to the emergency room safety get help for manic episode. He states he was acting strange but cannot explain this. He did mention that he was listening to a lot of music and was having inappropriate sexual relationships. He then stated that a friend to pay for the hotel. Patient was discharged on lithium 300 mg 3 times a day a reduced dose due to an elevated lithium level on 900 mg twice a day and he was to continue with Risperdal Consta 12.5 mg every 2 weeks. Patient did not follow-up with his injections or medication and last received his Risperdal on February 16. Patient did not follow-up at [facility] to see the psychiatrist. Patient has had no repeat lithium level since his discharge and on admission his lithium level was 0.4. Patient states that he has had episodes of manic symptoms and depressive symptoms since he was 20 years of age. Patient states his first admission was at that time and his last admission was in early January. Patient is able to describe episodes where he has grandiose, tangential and impulsive and states that he also has episodes of depression where he is withdrawn, feeling tired and not having any interest or motivation to do things. Patient was a fair historian and needed a great deal of encouragement to discuss the symptoms that he was currently having. Past Psychiatric History: Patient has had 5-6 psychiatric admissions, he was admitted in [facility] in November, here in January. Patient was to be taking lithium 300 mg 3 times a day and Risperdal Consta 12.5 mg every 2 weeks. Past Medical/Surgical History: Patient denies any medical problems, states he fractured his wrist in the past. Home Medications Medication Instructions Recorded Confirmed Gabapentin [Neurontin] 400 mg PO BID 01/28/17 03/12/17 Multivitamins, Thera [Multivitamin 1 tab PO DAILY 01/28/17 03/12/17 (formulary)] Albuterol Inhaler [Ventolin Hfa 1 - 2 puff INHALATION RT-Q6H PRN 03/12/17 Inhaler] MDD NEVER STARTED Nicotine 21Mg/24Hr Patch [Habitrol 1 patch TRANSDERM DAILY 03/12/17 03/12/17 21Mg/24Hr Patch] Thiamine [Vitamin B-1] 100 mg PO DAILY 03/12/17 03/12/17 risperiDONE MICROSPHERES 12.5 mg IM Q14D 03/12/17 03/12/17 [RisperDAL CONSTA] Previous Rx's Medication Instructions Recorded [place] Carbonate 300 mg PO TID #90 capsule 02/04/17 Family History: Paternal great uncle diagnosed with schizophrenia, father alcohol use, no completed suicides Social History: Patient was born and raised in [place], parents when he was 25 years of age and he has 2 sisters. He states he completed high school and obtained a bachelor in arts in [place] and returned home for one year before going to [place] to attend school and obtain a Masters in arts and was there until his return in late November of this year. He returned here after he is discharged from the hospital in [place]. He states he has been living with his father. patient states he has never been and has no children. He reports he's been on Social Security disability since he was 21 years of age and his mother is guardian. Patient states that he has never worked. Substance Use History: Patient states he began using alcohol at the age of 19 when he was 22 years of age she was drinking a pint a day and states that he hasn't had any alcohol in last 2-1/2 weeks. Patient states he began using marijuana at the age of 20 and uses it occasionally. He reports using amphetamines when he was younger and states that he recently took some pills from friends that he has no idea what they were. He denies any IV drug use. Patient states he has used cocaine in the past as well as pain pills. Patient reports that he smokes a pack or more a day Legal History: Patient denies any legal history. Mental Status: Appearance/Attitude: Patient is dressed in hospital gown, makes intermittent eye contact and is cooperative. Behavior: Patient does not display any psychomotor agitation or retardation. Speech/Language: Speech is spontaneous, of normal volume and rhythm and he is coherent. Thought Process: Patient is tangential, no loose associations or flight of ideas Thought Content: Patient denies any auditory or visual hallucinations no delusions or paranoid ideation were elicited. Patient states that he sleeping about 5 hours a night and reports that he has some racing thoughts as well as some impulsive behavior. Suicidal/Homicidal Ideation: Patient denies any current suicidal or homicidal ideation. Sensorium/Cognition: Patient is alert and oriented to person, place, time and his memory is grossly intact. Mood/Affect: Patient's mood is restricted and his affect is blunted. Insight/Judgement: Patient's insight and judgment are fair Intellectual Functioning: Patient's intellectual functioning appears average. Strength/Weaknesses: Patient has a supportive family, financial support/lack of compliance with medication follow-up. Assessment: patient presents to the hospital stating he is in a manic episode and has some symptoms of tangential thought and has been taking lithium but has not continued with his Risperdal Consta injections. His current lithium level is low and patient states he is not feeling as well as he was when he was discharged from the hospital. Patient presents to the hospital for further stabilization on medication. Admission Diagnoses: Bipolar type I disorder, recent episode manic in partial remission Plan: patient was admitted on a voluntary basis, placed on routine observations and routine laboratory studies and a medical consultation was obtained. Patient was also ordered group and activity therapy. Patient was seen and we discussed that his lithium dosage and level were not within the therapeutic range and so his lithium was increased to 600 mg twice a day and a lithium level will be ordered in 2 days. Patient will also continue on Risperdal Consta 12.5 mg every 2 weeks and he received a dose today. Patient and I discussed that his lithium level was not within the therapeutic range and so the need to increase the oral dose. Patient was also encouraged to continue with the current medications he been discharged on as patient stated that he did well when he was discharged on both Risperdal and lithium. Patient requires hospitalization to stabilize his mood and expect that the patient can be discharged in several days. 03/13/17 14:42 03/13/17 14:43
[2017-03-13] MEDS: CEPHALEXIN 500 MG CAP PO SCH ×2 (16:38→21:08)
[2017-03-13] MEDS: MUPIROCIN 2% OINT 22 GM TUBE TOPICAL SCH ×2 (16:39→21:09)
[2017-03-13] MEDS: LITHIUM CARBONATE 300 MG CAP PO SCH (21:08)
[2017-03-14] MEDS: MULTIVITAMINS, THERA 1 EACH TAB PO SCH (08:48)
[2017-03-14] MEDS: CEPHALEXIN 500 MG CAP PO SCH ×3 (08:48→21:11)
[2017-03-14] MEDS: THIAMINE 100 MG TAB PO SCH (08:48)
[2017-03-14] MEDS: NICOTINE 14MG/24HR PATCH TRANSDERM SCH (08:49)
[2017-03-14] MEDS: LITHIUM CARBONATE 300 MG CAP PO SCH ×2 (08:49→21:11)
[2017-03-14] MEDS: MUPIROCIN 2% OINT 22 GM TUBE TOPICAL SCH ×3 (09:30→21:11)
[2017-03-14] MEDS: ALBUTEROL INHALER 60 PUFF/8 GM INHALER INHALATION PRN ×2 (09:32→13:51)
--- NOTE | 2017-03-14 09:34 | P.MDCNMH ---
History of Present Illness H&P Date: 03/13/17 This is a 26-year-old male with no significant history other than bipolar disorder, tobacco dependency and alcohol abuse. The patient presented to the emergency department for persistent episodes of dione. He reports he currently takes lithium and feels that it is not controlling his symptoms very well. Patient also reports that he use to see Dr. Pool and recently switched to [facility], but was unable to get an appointment for a few weeks. He reports he came to the emergency department because he is almost out of his lithium and wanted to discuss different agents for his bipolar disorder. He also reports that he has a lesion in his left groin area that is draining and lesions to bilateral axilla. The patient states he recently had a complete physical exam at the [facility] last week and was placed on an albuterol inhaler for cough and wheeze due to his tobacco use. Patient denies any fevers or chills, nausea, vomiting, diarrhea, or constipation. Review of Systems Constitutional: Denies chills, Denies fatigue, Denies fever, Denies malaise Eyes: denies blurred vision, denies irritation, denies loss of peripheral vision , denies loss of vision Ears: deny: decreased hearing Ears, nose, mouth and throat: Denies epistaxis, Denies headache, Denies nasal congestion, Denies sinus pressure Cardiovascular: Denies chest pain, Denies edema, Denies palpitations, Denies shortness of breath, Denies syncope Respiratory: Denies congestion, Denies cough, Denies wheezing Gastrointestinal: Denies abdominal pain, Denies constipation, Denies heartburn, Denies vomiting Genitourinary: Denies dysuria, Denies flank pain, Denies kidney stones Musculoskeletal: Denies frequent falls, Denies muscle weakness Musculoskeletal: bilateral: ankle stiffness, foot pain, hand pain, knee pain, shoulder pain, wrist pain Integumentary: Reports boils, Reports wounds, Denies dryness Neurological: Denies confusion, Denies paresthesias, Denies seizures, Denies weakness, Denies visual changes Psychiatric: Reports insomnia, Reports mood swings, Denies anxiety, Denies confusion, Denies depression, Denies irritability, Denies suicidal ideation Endocrine: Denies fatigue, Denies nocturia, Denies thyroid mass Allergic/Immunologic: Denies wheezing Past Medical History Past Medical History: No Reported History History of Any Multi-Drug Resistant Organisms: None Reported Past Surgical History: No Surgical Hx Reported Past Psychological History: Bipolar Smoking Status: Current every day smoker Past Alcohol Use History: Occasional Past Drug Use History: Marijuana - Past Family History Father Additional Family Medical History / Comment(s): Father is alive at age 52 with history of alcohol abuse. Mother Additional Family Medical History / Comment(s): Mother is alive at age 51 with history of diabetes. Patient does not have any brothers. Patient has 2 sisters and one has anxiety. Medications and Allergies Home Medications Medication Instructions Recorded Confirmed Type Gabapentin [Neurontin] 400 mg PO BID 01/28/17 03/12/17 History Multivitamins, Thera [Multivitamin 1 tab PO DAILY 01/28/17 03/12/17 History (formulary)] [place] Carbonate 300 mg PO TID #90 capsule 02/04/17 03/12/17 Rx Albuterol Inhaler [Ventolin Hfa 1 - 2 puff INHALATION RT-Q6H PRN 03/12/17 History Inhaler] MDD NEVER STARTED Nicotine 21Mg/24Hr Patch [Habitrol 1 patch TRANSDERM DAILY 03/12/17 03/12/17 History 21Mg/24Hr Patch] Thiamine [Vitamin B-1] 100 mg PO DAILY 03/12/17 03/12/17 History risperiDONE MICROSPHERES 12.5 mg IM Q14D 03/12/17 03/12/17 History [RisperDAL CONSTA] Allergies Allergy/AdvReac Type Severity Reaction Status Date / Time aripiprazole [From [facility]] Allergy Swelling Verified 03/12/17 18:19 milk Allergy Nausea & Verified 03/12/17 18:19 Vomiting & Diarrhea Physical Exam Vitals: Vital Signs Temp Pulse Pulse Resp BP BP Pulse Ox 03/13/17 00:10 97.5 F L 89 16 100/71 97 03/12/17 23:57 77 16 102/59 98 03/12/17 17:36 97.5 F L 80 18 120/74 97 Intake and Output 03/12/17 03/13/17 03/13/17 22:59 06:59 14:59 Other: Weight 72.575 kg 74.1 kg - Constitutional General appearance: cooperative, no acute distress - EENT Eyes: PERRLA ENT: normal oropharynx - Neck Neck: no lymphadenopathy, normal ROM, no thyromegaly Thyroid: bilateral: normal size, negative: enlarged, nodule - Respiratory Respiratory: bilateral: CTA - Cardiovascular Rhythm: regular Heart sounds: normal: S1, S2 Abnormal Heart Sounds: no rub, no click - Gastrointestinal General gastrointestinal: no distended, no hepatomegaly, normal bowel sounds, no organomegaly, soft - Integumentary Carbuncle to left inner groin that is draining serosanguineous drainage, multiple lumps noted to bilat. axilla, no drainage or open areas - Neurologic Neurologic: CNII-XII intact - Musculoskeletal Musculoskeletal: gait normal, no generalized weakness - Psychiatric Psychiatric: A&O x's 3 Cranial Nerve Examination - Cranial Nerves Cranial Nerve I- Olfactory: Intact Cranial Nerve II- Optic: Intact Cranial Nerve III- Oculomotor: Intact Cranial Nerve IV- Trochlear: Intact Cranial Nerve V- Trigeminal: Intact Cranial Nerve - Abducens: Intact Cranial Nerve VII- Facial: Intact Cranial Nerve VIII- Auditory: Intact Cranial Nerve IX- Glossopharyngeal: Intact Cranial Nerve X- Vagus: Intact Cranial Nerve XI- Accessory: Intact Cranial Nerve XII- Hypoglossal: Intact Results CBC & Chem 7: 03/13/17 09:12 03/13/17 09:12 Labs: Abnormal Lab Results - Last 24 Hours (Table) 03/12/17 03/13/17 03/13/17 Range/Units 21:10 09:12 09:12 WBC 13.5 H (3.8-10.6) k/uL Neutrophils # 10.6 H (1.3-7.7) k/uL Glucose 72 L (74-99) mg/dL AST 16 L (17-59) U/L Ur Amphetamines Screen Detected H (NotDetected) Assessment and Plan Plan: 1. Bipolar disorder. Admitted to the mental health unit. Continue current plan of care. 2. Tobacco use and dependency. Continue nicotine patch. 3. Alcohol abuse. Continue Ativan as needed, and multivitamin. 4. Bronchospasms. Albuterol HFA 1-2 puffs every 4-6 hours as needed for cough or wheeze. 5. Suppurativa Hidradenitis. No open wounds to axilla, will continue to monitor. 6. Left groin carbuncle. Wound culture ordered, Keflex 500 mg 3 times a day and Bactroban ointment ordered. The above impression and plan of care have been discussed and directed by signing physician. Honey Smart nurse practitioner acting as scribe for signing physician.
--- NOTE | 2017-03-14 11:43 | P.PN ---
Progress Note - Text Interval History: Patient is a 26-year-old male who is seen today and reports that he is feeling a little sleepy after receiving the Risperdal Consta injection yesterday. He states he slept well last night and feels that his mood is more stable and he is no longer having racing thoughts. Patient discussed that he wishes to decrease his use of tobacco on the outside as well as he sees the need to avoid any alcohol or drugs. Patient reported no side effects from the medication. Mental Status: Appearance/Attitude: Patient was appropriately dressed,makes good eye contact and was cooperative. Behavior: Patient did not display any psychomotor agitation or retardation Speech/Language: Patient's speech was spontaneous and of normal volume and rhythm and he was coherent. Thought Process: Patient was goal-directed there was no evidence of tangential or circumstantial thought and no loose associations or flight of ideas were elicited. Thought Content: Patient denied any auditory or visual hallucinations, no paranoid or delusional ideation was elicited and he reported no further racing thoughts. Patient states he is sleeping and eating well. Suicidal/Homicidal Ideation: Patient denies any current suicidal or homicidal ideation. Sensorium/Cognition: Patient is alert, oriented to person, place and time and his memory is grossly intact. Mood/Affect: Patient's mood is more stable and his affect is appropriate. Insight/Judgement: Patient's insight and judgment are fair. Assessment: Patient is not having any racing thoughts, he is not tangential and reports feeling more stable on the medication. Patient is discussing his use of tobacco and drugs appropriately. he reports sleeping and eating well. Patient reported feeling slightly sedated after the risperdal Consta but is doing well otherwise and no side effects from the lithium. Plan: Patient will continue on lithium 600 mg twice a day and he received Risperdal Consta 12.5 mg yesterday and will receive his next injection in 2 weeks. Patient has a lithium level ordered for tomorrow and we will adjust his dose based on that. Patient and I discussed discharge in several days once we have his lithium within a therapeutic range.
[2017-03-15] MEDS: NICOTINE 14MG/24HR PATCH TRANSDERM SCH (08:32)
[2017-03-15] MEDS: MULTIVITAMINS, THERA 1 EACH TAB PO SCH (08:32)
[2017-03-15] MEDS: THIAMINE 100 MG TAB PO SCH (08:32)
[2017-03-15] MEDS: CEPHALEXIN 500 MG CAP PO SCH ×3 (08:32→21:15)
[2017-03-15] MEDS: LITHIUM CARBONATE 300 MG CAP PO SCH ×2 (09:17→21:15)
[2017-03-15] MEDS: MUPIROCIN 2% OINT 22 GM TUBE TOPICAL SCH ×3 (09:17→23:13)
--- NOTE | 2017-03-15 11:49 | P.PN ---
Progress Note - Text Interval History: Patient is a 26-year-old male who was seen today and reports that he been doing much better. Patient states he is sleeping about 8-9 hours a night and has not been attending groups because he is trying to take a different approach to this hospitalization. He states he is taking things more seriously and wishes when he is discharged to be able to get a job and find his own place to live. Patient reports no side effects from the medication and denies that he is having any racing thoughts. Patient states will return to live with his father upon discharge and states that he and his father had a good visit last evening. He states that he felt his privacy was being invaded when he was living with his father and so he moved into the garage. Mental Status: Appearance/Attitude: Patient is appropriately dressed, makes good eye contact and is cooperative. Behavior: Patient does not display any psychomotor agitation or retardation. Speech/Language: Patient's speech is spontaneous and of normal volume and rhythm and he is coherent. Thought Process: Patient is goal-directed, there is no evidence of circumstantial or tangential thought and no loose associations or flight of ideas. Thought Content: Patient denies any auditory or visual hallucinations no delusions or paranoid ideation were elicited. The patient denies racing thoughts. Patient states he is sleeping and eating well. Patient did not express any grandiose ideation. Suicidal/Homicidal Ideation: Patient denied any current suicidal or homicidal ideation. Sensorium/Cognition: Patient is alert and oriented to person, place, and time and his memory is grossly intact. Mood/Affect: Patient's mood is euthymic and his affect is appropriate. Insight/Judgement: Patient's insight and judgment are fair. Assessment: Patient reports that he is sleeping well, no further racing thoughts and no grandiose ideation is elicited. Patient is currently taking 600 mg of lithium twice a day and his blood level this morning was 0.6, I suspect it will be slightly higher after he has been on this dose for over a week. Patient is also continued on Risperdal Consta 12.5 mg every 2 weeks. Patient has not been attending groups or activities stating that he wanted to try different approach during this admission as he states that he was playing around too much in groups and activities on his last admission. Patient reports no side effects from the medication. Plan: Patient will continue on lithium 600 mg twice a day and Risperdal Consta 12.5 mg every 2 weeks and patient and I discussed discharge for tomorrow, he states he will return to live with his father. Patient and I discussed the importance of follow-up care and compliance with medication. I also encouraged the patient to avoid any alcohol or drugs once he is discharged. Patient and I discussed discharge tomorrow.
[2017-03-15] MEDS: ALBUTEROL INHALER 60 PUFF/8 GM INHALER INHALATION PRN (16:28)
[2017-03-16 06:28] VITALS: BP 85/48; PULSE 52; RESP 15; TEMP 98
[2017-03-16] MEDS: MULTIVITAMINS, THERA 1 EACH TAB PO SCH (09:04)
[2017-03-16] MEDS: LITHIUM CARBONATE 300 MG CAP PO SCH (09:04)
[2017-03-16] MEDS: THIAMINE 100 MG TAB PO SCH (09:04)
[2017-03-16] MEDS: NICOTINE 14MG/24HR PATCH TRANSDERM SCH (09:04)
[2017-03-16] MEDS: CEPHALEXIN 500 MG CAP PO SCH (09:04)
[2017-03-16] MEDS: MUPIROCIN 2% OINT 22 GM TUBE TOPICAL SCH (09:30)
--- NOTE | 2017-03-16 11:03 | P.DS ---
Providers Date of admission: 03/12/17 23:45 Expected date of discharge: 03/16/17 Attending physician: Manuela Voss MD Consults: 03/13/17 01:37 Consult Physician Routine Consulting Provider: Efrain Cardoso Reason/Comments: For H & P for Medical Follow Up Do you want consulting provider notified?: Yes, Notify in am Primary care physician: Efrain Cardoso Hospital Course: Discharge Diagnoses: Bipolar type I disorder, recent episode manic in partial remission Reason for Admission: Patient is a 26-year-old male who had been admitted to this hospital from January 29 to the , he presented himself to the hospital requesting admission for manic symptoms. Patient reported that he was unable to describe what he meant but states he felt that the "world would end". Patient reports sleeping about 5 hours a night and had recently moved into a hotel because he did not like living with his parents. Patient's friends brought him to the emergency room stating he was acting strange, states he was listening to a lot of music and had an increased interest in sex. Patient states he did not follow-up with his Risperdal Consta injections, he last received an injection on February 16. Patient did not follow-up at [facility] with his appointment with the psychiatrist. Patient was discharged on lithium 300 mg 3 times a day and on admission his lithium level was 0.4. Patient was tangential, reporting about 5 hours of sleep at night with racing thoughts and impulsive behavior. He denied any suicidal or homicidal ideation on admission. Patient's drug screen was also positive for amphetamines but he was unable to tell me why he was positive for that, stating perhaps one of his friends gave it to him. Patient reported that he had not used any alcohol in the last 2-1/2 weeks, continues to use marijuana occasionally and states that he has used cocaine in the past but reports that he had used amphetamines in the past but was uncertain what pills his friends gave him. Patient is able to give a history of both manic and depressive episodes and has been treated in the past for bipolar disorder and was also admitted to a hospital in [facility] in November of this year. Patient's mother is his guardian and he is supported on Social Security disability. Hospital Course: Patient was admitted on a voluntary basis, routine laboratory studies were ordered as well as a medical consultation. Patient was placed on routine observations and group and activity therapy were ordered for the patient. Patient was continued on his Risperdal Consta 12.5 mg and received his injection on March 13. Patient's lithium was increased to 600 mg twice a day as his level was subtherapeutic on 900mg a day, his level after 2 days on 1200mg per day of lithium was 0.6 and when he was on 1800 mg a day his lithium level was 1.4. Patient reported that on the medications he was not having any further racing thoughts, he was less tangential and states he was sleeping well and feeling rested in the morning. He reported that he was not attending groups and activities on this admission as he wanted to take things more seriously. Patient reported that he was feeling much more stable, was going to return to live with his father on discharge and was hopeful to try to find a job here in the area on a part-time basis and be able eventually to live on his own. Patient's mother is the patient's guardian and he supports himself on Social Security disability. Patient was also seen in medical consultation and continued on a Ventolin inhaler, he was also treated for a carbuncle on the left upper, inner thigh with Keflex 500 mg 3 times a day. Cultures were also taken and final results were unavailable at this time. Discharge Mental Status:Appearance/Attitude: Patient was appropriately dressed, made good eye contact and was cooperative. Behavior: Patient did not display any psychomotor agitation or retardation. Speech/Language: Patient's speech was spontaneous, of normal volume and rhythm and he was coherent. Thought Process: Patient was goal-directed, there is no evidence of circumstantial or tangential thought and no loose associations or flight of ideas were elicited. Patient reported he was no longer having racing thoughts. Thought Content: Patient denied any auditory or visual hallucinations, no delusions or paranoid ideation were elicited. Patient states he was no longer feeling impulsive, felt he was sleeping better and felt more rested and states his appetite was good. Suicidal/Homicidal Ideation: Patient denied any current suicidal or homicidal ideation. Sensorium/Cognition: Patient was alert and oriented to person, place, time and his memory is grossly intact. Mood/Affect: Patient's mood was euthymic, his affect was appropriate. Insight/Judgement: Patient's insight and judgment are fair. Laboratory Last Values WBC 13.5 k/uL (3.8-10.6) H 03/13/17 09:12 RBC 4.48 m/uL (4.30-5.90) 03/13/17 09:12 Hgb 15.2 gm/dL (13.0-17.5) 03/13/17 09:12 Hct 44.8 % (39.0-53.0) 03/13/17 09:12 MCV 99.8 fL (80.0-100.0) 03/13/17 09:12 MCH 33.8 pg (25.0-35.0) 03/13/17 09:12 MCHC 33.9 g/dL (31.0-37.0) 03/13/17 09:12 RDW 11.6 % (11.5-15.5) 03/13/17 09:12 Plt Count 262 k/uL (150-450) 03/13/17 09:12 Neutrophils % 79 % 03/13/17 09:12 Lymphocytes % 14 % 03/13/17 09:12 Monocytes % 5 % 03/13/17 09:12 Eosinophils % 2 % 03/13/17 09:12 Basophils % 0 % 03/13/17 09:12 Neutrophils # 10.6 k/uL (1.3-7.7) H 03/13/17 09:12 Lymphocytes # 1.8 k/uL (1.0-4.8) 03/13/17 09:12 Monocytes # 0.7 k/uL (0-1.0) 03/13/17 09:12 Eosinophils # 0.2 k/uL (0-0.7) 03/13/17 09:12 Basophils # 0.0 k/uL (0-0.2) 03/13/17 09:12 Sodium 142 mmol/L (137-145) 03/13/17 09:12 Potassium 4.5 mmol/L (3.5-5.1) 03/13/17 09:12 Chloride 105 mmol/L (98-107) 03/13/17 09:12 Carbon Dioxide 29 mmol/L (22-30) 03/13/17 09:12 Anion Gap 8 mmol/L 03/13/17 09:12 BUN 9 mg/dL (9-20) 03/13/17 09:12 Creatinine 0.98 mg/dL (0.66-1.25) 03/13/17 09:12 Est GFR (MDRD) Af Amer >60 (>60 ml/min/1.73 sqM) 03/13/17 09:12 Est GFR (MDRD) Non-Af >60 (>60 ml/min/1.73 sqM) 03/13/17 09:12 Glucose 72 mg/dL (74-99) L 03/13/17 09:[address] Glu mg/dL 103 mg/dL 03/13/17 09:12 Hemoglobin A1c 5.2 % (4.2-6.1) 03/13/17 09:12 Calcium 9.0 mg/dL (8.4-10.2) 03/13/17 09:12 Total Bilirubin 0.4 mg/dL (0.2-1.3) 03/13/17 09:12 AST 16 U/L (17-59) L 03/13/17 09:12 ALT 31 U/L (21-72) 03/13/17 09:12 Alkaline Phosphatase 56 U/L (38-126) 03/13/17 09:12 Total Protein 6.6 g/dL (6.3-8.2) 03/13/17 09:12 Albumin 4.1 g/dL (3.5-5.0) 03/13/17 09:12 Triglycerides 103 mg/dL (<150) 03/13/17 09:12 Cholesterol 128 mg/dL (<200) 03/13/17 09:12 LDL Cholesterol, Calc 59 mg/dL (0-99) 03/13/17 09:12 HDL Cholesterol 48 mg/dL (40-60) 03/13/17 09:12 TSH 2.260 mIU/L (0.465-4.680) 03/13/17 09:12 Urine Opiates Screen Not Detected (NotDetected) 03/12/17 21:10 Ur Oxycodone Screen Not Detected (NotDetected) 03/12/17 21:10 Urine Methadone Screen Not Detected (NotDetected) 03/12/17 21:10 Ur Propoxyphene Screen Not Detected (NotDetected) 03/12/17 21:10 Ur Barbiturates Screen Not Detected (NotDetected) 03/12/17 21:10 U Tricyclic Antidepress Not Detected (NotDetected) 03/12/17 21:10 Ur Phencyclidine Scrn Not Detected (NotDetected) 03/12/17 21:10 Ur Amphetamines Screen Detected (NotDetected) H 03/12/17 21:10 U Methamphetamines Scrn Not Detected (NotDetected) 03/12/17 21:10 U Benzodiazepines Scrn Not Detected (NotDetected) 03/12/17 21:10 [place] 0.6 mmol/L 03/15/17 09:08 Urine Cocaine Screen Not Detected (NotDetected) 03/12/17 21:10 U Marijuana (THC) Screen Not Detected (NotDetected) 03/12/17 21:10 Risk Assessment: Patient's risk for self-harm is moderate due to his lack of compliance with medication and follow-up, history of drug and alcohol use. Discharge Plan: Patient states he'll return to live with his father, patient will continue on Risperdal Consta 12.5 mg, next injection due on March 27. Patient will also continue on lithium 600 mg twice a day, his level was 0.6 and this was after only 2 days and he was told it may need to be increased. Patient will also be discharged on a Ventolin inhaler and nicotine patches at 14 mg a day. Patient will follow-up at [facility] and was encouraged to avoid any alcohol or drug use and be compliant with medication and follow-up appointments. Patient will continue with Keflex 500mg three times a day for 7 days and continue with Bactropan ointment to area for 7 days three times a day for his carbuncle on his left thigh, cultures are still pending. Patient was given scripts for nicotine patches, Keflex, lithium, risperdal consta on discharge. Patient Condition at Discharge: Stable Plan - Discharge Summary New Discharge Prescriptions: New RX: Cephalexin [Keflex] 500 mg PO TID #21 cap RX: [place] Carbonate 600 mg PO BID #56 cap RX: Mupirocin 2% Oint [Bactroban 2% Oint] 1 applic TOPICAL TID dose RX: Nicotine 14Mg/24Hr Patch [Habitrol] 1 patch TRANSDERM DAILY #14 patch Continue RX: Multivitamins, Thera [Multivitamin (formulary)] 1 tab PO DAILY RX: Thiamine [Vitamin B-1] 100 mg PO DAILY RX: Albuterol Inhaler [Ventolin Hfa Inhaler] 1 - 2 puff INHALATION RT-Q6H PRN 28 Days PRN Reason: Shortness Of Breath RX: risperiDONE MICROSPHERES [RisperDAL CONSTA] 12.5 mg IM Q14D 14 Days Discontinued RX: Gabapentin [Neurontin] 400 mg PO BID RX: [place] Carbonate 300 mg PO TID #90 capsule Nicotine 21Mg/24Hr Patch [Habitrol 21Mg/24Hr Patch] 1 patch TRANSDERM DAILY Discharge Medication List RX: Multivitamins, Thera [Multivitamin (formulary)] 1 tab PO DAILY 01/28/17 [ History] RX: Thiamine [Vitamin B-1] 100 mg PO DAILY 03/12/17 [History] RX: Albuterol Inhaler [Ventolin Hfa Inhaler] 1 - 2 puff INHALATION RT-Q6H PRN 28 Days 03/16/17 [Rx] RX: Cephalexin [Keflex] 500 mg PO TID #21 cap 03/16/17 [Rx] RX: [place] Carbonate 600 mg PO BID #56 cap 03/16/17 [Rx] RX: Mupirocin 2% Oint [Bactroban 2% Oint] 1 applic TOPICAL TID dose 03/16/17 [ Rx] RX: Nicotine 14Mg/24Hr Patch [Habitrol] 1 patch TRANSDERM DAILY #14 patch [Rx] RX: risperiDONE MICROSPHERES [RisperDAL CONSTA] 12.5 mg IM Q14D 14 Days [Rx] Follow up Appointment(s)/Referral(s): [facility] [Outside] - 03/19/17 1:00 pm (03/19/17 @ 1300 with Nabila Castillo 03/29/17 @ [address] Lozano) Efrain Cardoso MD [Primary Care Provider] - 1-2 days Patient Instructions/Handouts: Bipolar Disorder (GEN), Suicide Prevention for Adults (GEN) Activity/Diet/Wound Care/Special Instructions: Activity and diet as tolerated. Avoid the use of street drugs and alcohol. Take all medications as prescribed. When you are in need of refills on your medications please contact your outpatient medical provider and/out outpatient psychiatrist. Please go to scheduled outpatient appointment for aftercare treatment. If symptoms return or become worse call the crisis line at [phone] and/or go to the nearest emergency room for an evaluation. Continue with Bactropan ointment to area on left thigh three times a day for 7 days. Discharge Disposition: HOME SELF-CARE
== END 2017-03-16 12:10 | disposition home or self-care (01) | DRG 885 ==
LOC: EC 17:30 → 3MHU 23:45
PROVIDERS: ADMIT Psychiatry & Neurology Psychiatry; ATTEND Psychiatry & Neurology Psychiatry
DX: F31.9 Bipolar disorder, unspecified (principal); F17.200 Nicotine dependence, unspecified, uncomplicated; T43.596A Underdosing of other antipsychotics and neuroleptics, initial encounter; R45.87 Impulsiveness; R53.83 Other fatigue; L02.436 Carbuncle of left lower limb; Z81.8 Family history of other mental and behavioral disorders; Z79.899 Other long term (current) drug therapy; Z81.1 Family history of alcohol abuse and dependence; Z91.19 Patient's noncompliance with other medical treatment and regimen; Z88.8 Allergy status to other drugs, medicaments and biological substances; Z91.011 Allergy to milk products
CPT/HCPCS: 36415; 80053; 80061; 80178; 80306; 82075; 83036; 84443; 85025; 87070; 87075; 87205; 94640; 99285

== ENCOUNTER 2017-04-01 22:28 | Inpatient (IN) | payer MEDICARE, MEDICAID ==
--- NOTE | 2017-04-01 23:32 | ED ---
Anxiety HPI - General Source: patient, RN notes reviewed, old records reviewed Mode of arrival: ambulatory <Myra Dhillon - Last Filed: 04/02/17 01:16> <Aric Byrd - Last Filed: 04/11/17 22:37> - General Chief Complaint: Anxiety Stated Complaint: mental health-revisit Time Seen by Provider: 04/01/17 22:50 - History of Present Illness Initial Comments: This is a 26-year-old male presenting to emergency department with chief complaint of extreme anxiety. Patient ports that he was diagnosed with a pole or with dione wasn't the hospital for a few days to weeks ago. He reports that after he was discharged she was doing somewhat well for one week. He reports that he decided to go back to [place] for arts school, and reports that that seemed overwhelming to him. He is supposed to leave yesterday to go back to [place] but he felt like he couldn't. Patient reports that he is just been under extreme amount of stress and cannot handle the severe anxiety. Patient reports that he is not suicidal but states that he does not seem a he is able to function of daily life. He reports that he cannot sleep. He is had a very poor appetite. Yesterday he states that he took NyQuil to help sleep which did not make swell with his medicine. He reports they took her normal dose and did not attempt overdose. Patient denies any recent fever, chills, shortness of breath, chest pain, back pain, abdominal pain, nausea vomiting, numbness or tingling, dysuria or hematuria, constipation or diarrhea, headaches or visual changes, or any other current symptoms (Myra Dhillon) - Related Data Home Medications: Home Medications Medication Instructions Recorded Confirmed Albuterol Inhaler [Ventolin Hfa 2 puff INHALATION RT-Q6H PRN 04/02/17 04/02/17 Inhaler] Previous Rx's Medication Instructions Recorded Benztropine Mesylate [Cogentin] 1 mg PO BID #60 tab 04/09/17 Haloperidol [Haldol] 5 mg PO BID #60 tab 04/09/17 [place] Carbonate ER [Lithobid] 900 mg PO BID #60 tab 04/09/17 Thiamine [Vitamin B-1] 100 mg PO DAILY@1200 #30 tab 04/09/17 risperiDONE MICROSPHERES 25 mg IM [id number] #1 syringe 04/09/17 [RisperDAL CONSTA] Allergies/Adverse Reactions: Allergies Allergy/AdvReac Type Severity Reaction Status Date / Time aripiprazole [From Abilify] AdvReac Swelling Verified 04/02/17 07:04 milk AdvReac Nausea & Verified 04/02/17 07:04 Vomiting & Diarrhea Review of Systems ROS Other: All systems not noted in ROS Statement are negative. <Myra Dhillon - Last Filed: 04/02/17 01:16> ROS Other: All systems not noted in ROS Statement are negative. <Aric Byrd - Last Filed: 04/11/17 22:37> ROS Statement: Those systems with pertinent positive or pertinent negative responses have been documented in the HPI. Past Medical History Past Medical History: No Reported History History of Any Multi-Drug Resistant Organisms: None Reported Past Surgical History: No Surgical Hx Reported Past Psychological History: Anxiety, Bipolar Smoking Status: Current every day smoker Past Alcohol Use History: Occasional Past Drug Use History: Marijuana - Past Family History Father Additional Family Medical History / Comment(s): Father is alive at age 52 with history of alcohol abuse. Mother Additional Family Medical History / Comment(s): Mother is alive at age 51 with history of diabetes. Patient does not have any brothers. Patient has 2 sisters and one has anxiety. <Myra Dhillon - Last Filed: 04/02/17 01:16> General Exam Limitations: no limitations General appearance: alert, in no apparent distress Head exam: Present: atraumatic, normocephalic, normal inspection Eye exam: Present: normal appearance, PERRL, EOMI. Absent: scleral icterus, conjunctival injection, periorbital swelling ENT exam: Present: normal exam, mucous membranes moist Neck exam: Present: normal inspection. Absent: tenderness, meningismus, lymphadenopathy Respiratory exam: Present: normal lung sounds bilaterally. Absent: respiratory distress, wheezes, rales, rhonchi, stridor Cardiovascular Exam: Present: regular rate, normal rhythm, normal heart sounds. Absent: systolic murmur, diastolic murmur, rubs, gallop, clicks GI/Abdominal exam: Present: soft, normal bowel sounds. Absent: distended, tenderness, guarding, rebound, rigid Extremities exam: Present: normal inspection, full ROM, normal capillary refill. Absent: tenderness, pedal edema, joint swelling, calf tenderness Back exam: Present: normal inspection Neurological exam: Present: alert, oriented X3, CN II-XII intact Psychiatric exam: Present: normal affect, anxious (Patient appears extremely anxious. Patient is ripping or papers.). Absent: normal mood Skin exam: Present: warm, dry, intact, normal color. Absent: rash <Myra Dhillon - Last Filed: 04/02/17 01:16> <Aric Byrd - Last Filed: 04/11/17 22:37> - General Exam Comments Initial Comments: This is a 26-year-old male. No distress. (Myra Dhillon) Vital Signs 04/01/17 04/02/17 22:37 01:13 Temperature 98.7 F 97.0 F L Pulse Rate 100 81 Respiratory 18 18 Rate Blood Pressure 140/79 123/84 O2 Sat by Pulse 97 98 Oximetry Medical Decision Making - Lab Data Result diagrams: 04/01/17 23:53 04/01/17 23:53 <Myra Dhillon - Last Filed: 04/02/17 01:16> - Lab Data Result diagrams: 04/01/17 23:53 04/01/17 23:53 <Aric Byrd - Last Filed: 04/11/17 22:37> - Medical Decision Making This is a 26-year-old male presents emergency Department chief complaint of severe anxiety. He was recently started on lithium after an admission to last 2 weeks ago. Patient reports that he has been taking his medications to me. However he felt that he seemed to be somewhat manic. Patient was noted to be evaluated by psych services. Patient was seen by Marlen from [facility]. Also feels like patient is starting to have another manic episode and is having paranoid delusions. Apparently patient down noted a tear wrist On his phone when he was driving to the airport. As well as grandparents brought him back as he was acting abnormal. Patient will have lithium levels, CBC and BMP checked. It is all the patient will need to be admitted. Patient was petitioned and circumflex performed by Dr. Painting. (Myra Dhillon) I saw this patient in conjunction with the physician oral surgery assistant. I performed independent history and physical exam. Agree with case management. (Aric Byrd) - Lab Data Lab Results 04/01/17 04/01/17 04/01/17 Range/Units 23:53 23:53 23:53 WBC 13.4 H (3.8-10.6) k/uL RBC 4.48 (4.30-5.90) m/uL Hgb 14.8 (13.0-17.5) gm/dL Hct 44.7 (39.0-53.0) % MCV 99.9 (80.0-100.0) fL MCH 33.2 (25.0-35.0) pg MCHC 33.2 (31.0-37.0) g/dL RDW 12.7 (11.5-15.5) % Plt Count 243 (150-450) k/uL Neutrophils % 70 % Lymphocytes % 20 % Monocytes % 7 % Eosinophils % 1 % Basophils % 1 % Neutrophils # 9.4 H (1.3-7.7) k/uL Lymphocytes # 2.7 (1.0-4.8) k/uL Monocytes # 0.9 (0-1.0) k/uL Eosinophils # 0.2 (0-0.7) k/uL Basophils # 0.1 (0-0.2) k/uL Sodium 137 (137-145) mmol/L Potassium 3.7 (3.5-5.1) mmol/L Chloride 102 (98-107) mmol/L Carbon Dioxide 25 (22-30) mmol/L Anion Gap 10 mmol/L BUN 8 L (9-20) mg/dL Creatinine 0.70 (0.66-1.25) mg/dL Est GFR (MDRD) Af Amer >60 (>60 ml/min/1.73 sqM) Est GFR (MDRD) Non-Af >60 (>60 ml/min/1.73 sqM) Glucose 95 (74-99) mg/dL Estimated Ave Glu mg/dL mg/dL Hemoglobin A1c (4.2-6.1) % Calcium 9.4 (8.4-10.2) mg/dL Triglycerides (<150) mg/dL Cholesterol (<200) mg/dL LDL Cholesterol, Calc (0-99) mg/dL HDL Cholesterol (40-60) mg/dL TSH (0.465-4.680) mIU/L Urine Opiates Screen Not Detected (NotDetected) Ur Oxycodone Screen Not Detected (NotDetected) Urine Methadone Screen Not Detected (NotDetected) Ur Propoxyphene Screen Not Detected (NotDetected) Ur Barbiturates Screen Not Detected (NotDetected) U Tricyclic Antidepress Not Detected (NotDetected) Ur Phencyclidine Scrn Not Detected (NotDetected) Ur Amphetamines Screen Not Detected (NotDetected) U Methamphetamines Scrn Not Detected (NotDetected) U Benzodiazepines Scrn Not Detected (NotDetected) [place] <0.2 mmol/L Urine Cocaine Screen Not Detected (NotDetected) U Marijuana (THC) Screen Not Detected (NotDetected) 04/01/17 04/01/17 Range/Units 23:53 23:53 WBC (3.8-10.6) k/uL RBC (4.30-5.90) m/uL Hgb (13.0-17.5) gm/dL Hct (39.0-53.0) % MCV (80.0-100.0) fL MCH (25.0-35.0) pg MCHC (31.0-37.0) g/dL RDW (11.5-15.5) % Plt Count (150-450) k/uL Neutrophils % % Lymphocytes % % Monocytes % % Eosinophils % % Basophils % % Neutrophils # (1.3-7.7) k/uL Lymphocytes # (1.0-4.8) k/uL Monocytes # (0-1.0) k/uL Eosinophils # (0-0.7) k/uL Basophils # (0-0.2) k/uL Sodium (137-145) mmol/L Potassium (3.5-5.1) mmol/L Chloride (98-107) mmol/L Carbon Dioxide (22-30) mmol/L Anion Gap mmol/L BUN (9-20) mg/dL Creatinine (0.66-1.25) mg/dL Est GFR (MDRD) Af Amer (>60 ml/min/1.73 sqM) Est GFR (MDRD) Non-Af (>60 ml/min/1.73 sqM) Glucose (74-99) mg/dL Estimated Ave Glu mg/dL 108 mg/dL Hemoglobin A1c 5.4 (4.2-6.1) % Calcium (8.4-10.2) mg/dL Triglycerides 54 (<150) mg/dL Cholesterol 176 (<200) mg/dL LDL Cholesterol, Calc 105 H (0-99) mg/dL HDL Cholesterol 60 (40-60) mg/dL TSH 1.990 (0.465-4.680) mIU/L Urine Opiates Screen (NotDetected) Ur Oxycodone Screen (NotDetected) Urine Methadone Screen (NotDetected) Ur Propoxyphene Screen (NotDetected) Ur Barbiturates Screen (NotDetected) U Tricyclic Antidepress (NotDetected) Ur Phencyclidine Scrn (NotDetected) Ur Amphetamines Screen (NotDetected) U Methamphetamines Scrn (NotDetected) U Benzodiazepines Scrn (NotDetected) [place] mmol/L Urine Cocaine Screen (NotDetected) U Marijuana (THC) Screen (NotDetected) Disposition <Myra Dhillon - Last Filed: 04/02/17 01:16> <Aric Byrd - Last Filed: 04/11/17 22:37> Clinical Impression: Acute anxiety, Dione (monopolar) single episode or unspecified Disposition: ADMITTED IP TO THIS [facility] Condition: Stable
[2017-04-02 00:12] LABS: Basophils # (A) 0.1 k/uL (0-0.2); Basophils % (A) 1 %; CH 35.1; CHCM 35.2; Eosinophils # (A) 0.2 k/uL (0-0.7); Eosinophils % (A) 1 %; HCT 44.7 % (39.0-53.0); HDW 2.03; HGB 14.8 gm/dL (13.0-17.5); Luc # (Auto) 0.18; Luc % (Auto) 1; Lymphocytes # (A) 2.7 k/uL (1.0-4.8); Lymphocytes % (A) 20 %; MCH 33.2 pg (25.0-35.0); MCHC 33.2 g/dL (31.0-37.0); MCV 99.9 fL (80.0-100.0); Mean Platelet Volume 7.6; Monocytes # (A) 0.9 k/uL (0-1.0); Monocytes % (A) 7 %; Neutrophils # (A) 9.4 k/uL (1.3-7.7); Neutrophils % (A) 70 %; RBC 4.48 m/uL (4.30-5.90); RDW 12.7 % (11.5-15.5); WBC 13.4 k/uL (3.8-10.6)
[2017-04-02 00:32] LABS: Anion Gap 10 mmol/L; Blood Urea Nitrogen 8 mg/dL (9-20); Calcium 9.4 mg/dL (8.4-10.2); Carbon Dioxide 25 mmol/L (22-30); Chloride 102 mmol/L (98-107); Glucose 95 mg/dL (74-99); Lithium <0.2 mmol/L; Non-African American GFR(MDRD) >60 (>60 ml/min/1.73 sqM); Potassium 3.7 mmol/L (3.5-5.1); Sodium 137 mmol/L (137-145)
[2017-04-02] MEDS ORDERED: LORazepam 2 MG/ML INJ IM STA (01:05)
[2017-04-02] MEDS ORDERED: ACETAMINOPHEN TAB 325 MG TAB PO PRN (04:26)
[2017-04-02] MEDS ORDERED: LORazepam 1 MG TAB PO PRN (04:26)
[2017-04-02] MEDS ORDERED: MAG HYDROX/AL HYDROX/SIMETH 30 ML CUP PO PRN (04:26)
[2017-04-02] MEDS ORDERED: ZIPRASIDONE 20 MG VIAL IM PRN (04:26)
[2017-04-02] MEDS ORDERED: MAGNESIUM HYDROXIDE 2,400 MG/10 ML CUP PO PRN (04:26)
[2017-04-02] MEDS: NICOTINE 14MG/24HR PATCH TRANSDERM SCH ×2 (09:26→13:44)
[2017-04-02 11:14] LABS: Hemoglobin A1C 5.4 % (4.2-6.1)
[2017-04-02] MEDS ORDERED: LITHIUM CARBONATE 300 MG CAP PO STA (12:54)
[2017-04-02] MEDS: HALOPERIDOL 5 MG TAB PO SCH ×2 (13:44→21:44)
[2017-04-02] MEDS: BENZTROPINE MESYLATE 1 MG TAB PO SCH ×2 (13:44→21:44)
--- NOTE | 2017-04-02 14:57 | HP ---
HISTORY AND PHYSICAL DATE OF SERVICE: 04/02/2017. IDENTIFYING DATA: Patient is a 26-year-old male, he lives with his parents. He has had two recent past hospitalizations at this facility. He was admitted through the emergency room. CHIEF COMPLAINT: The patient describes being manic. He had disorganized thoughts. Impulsive behavior. Feeling confused, not sleeping and having excessive energy. HISTORY OF PRESENT ILLNESS: The patient has had 2 recent hospitalizations at this facility including January 29 and March 13. Please refer to admission notes of Dr. Hernandez and Dr. Magallanes for details. At the last admission, the patient described being manic with thoughts that "the world was coming to an end." He had impulsive and potentially dangerous behavior. He was discharged on a combination of lithium 600 mg twice a day and Respirdal Consta 12.5 mg IM every 2 weeks. He last received an injection of Respirdal Consta March 29. He says in the last 2 weeks since his discharge of March 16 he has not been doing well. He was vague about specifics. He suggests that he had not been taking his lithium consistently. It is noted that when he was discharged in January his lithium level on February 04 was 0.4. When he was discharged in February his lithium level March 15 was 0.6. His lithium level on admission now is 0.2. He said he had not been sleeping over the weekend. He was not able to provide details of his function over the last 2 weeks. He says things have been getting progressively worse. He was somewhat disorganized in the information he presented. He has a mix of episodes of euphoric mood with depressive symptoms. It is noted that he has had a diagnosis of bipolar disorder going back to age 20 when he was first hospitalized. He had been living in [place] up until this past summer and apparently moved back from [place] to his parent's house because of his having persistent mood symptoms. He denies use of abusive substances. He is admitted for further evaluation. PAST MEDICAL HISTORY: Past medical history unremarkable by the patient's report. Further medical history and review of systems as per medical consultation. FAMILY HISTORY: Family and social history, refer to previous admission notes of January 29 and March 13 for details. MENTAL STATUS EXAM: Patient was dressed in hospital garb. He gave fair eye contact. He was restless. He answered some questions appropriately. When I read through some of his admission materials from his two previous admissions he would ask questions such as, "was I doing that," or "did I say that." He at one point, stood up, and paced in the room. He focused on the idea that he just needed to take his medications. He says that when he takes medications consistently he believes they help. His affect was intense and anxious. His mood dysphoric. He was moderately distressed. He did have disorganized thoughts. He did not clearly demonstrate flight of ideas, though he did show tangential thinking and loose association. There was no indication of clear thought disorder. There was no indication of risk of harm to self or others. On cognitive exam, the patient was oriented x3 and alert. He knew his current circumstances and the issues relating to his coming to the hospital. He did not make an effort to answer formal cognitive questions. Insight was fair, judgment is fair. Fund of knowledge and intellectual level average. ASSESSMENT: This is a 26-year-old male diagnosed with bipolar disorder with mixed manic and depressive symptoms. He has not been fully stabilized on medications. His lithium levels have been in the low normal range and clearly inadequate to treat acute or subacute manic episodes. He is only on a low-dose of Respirdal Consta also which is not likely to be at all therapeutic. Social supports uncertain. STRENGTHS: Include his awareness of his psychiatric issues and seeking help. WEAKNESS: Includes lack of follow through with his mental health care. DIAGNOSES: 1. Bipolar affect disorder. Manic and mixed manic depressive without psychotic features. 2. Rule out posttraumatic stress disorder. 3. History of alcohol abuse. RECOMMENDATIONS: Patient will be admitted for comprehensive medical psychiatric and psychosocial evaluation. We will engage the patient in individual and group therapeutic activities. I will start the patient on lithium. He will get an initial dose of 1200 mg now and then will be started on 900 mg twice a day. I will give him a 2nd injection of Respirdal Consta 12.5 mg a day to then be started on a every 2 week regimen of Respirdal Consta. I will also start Haldol 5 mg twice a day to help augment the lithium in treatment of his bipolar dione. I will also start Cogentin 1 mg twice a day to reduce the risk for EPS symptoms. Given his age and being a male he is at significantly higher risk for acute EPS symptoms related to Haldol. We will focus on stabilization and discharge planning. MMODL / IJN: [id number] /
--- NOTE | 2017-04-02 15:28 | P.MDCNMH ---
History of Present Illness H&P Date: 04/02/17 This is a 26-year-old male patient with no significant past medical history other than bipolar and tobacco use and dependence and alcohol abuse. Patient states he follows with Dr. Cardoso one time a year or less frequently for physical exams only. Patient is on his third hospitalization to the mental health unit this summer secondary to bipolar disorder. Patient states that he forgets to take his lithium and he developed paranoid thoughts. He also started drinking as well. He states he couldn't sleep and was going into a manic phase which she does not even realize it at the time. He is only followed with [facility] once. Patient was seen in [facility] emergency center and subsequently admitted to the mental health unit. Noted that patient also states he has been taking NyQuil to help with sleeping which only made his symptoms worse. He denies any recent marijuana use or street drug use. Review of Systems All systems: negative Constitutional: Denies chills, Denies fever Eyes: denies blurred vision, denies pain Ears, nose, mouth and throat: Denies headache, Denies sore throat Cardiovascular: Denies chest pain, Denies shortness of breath Respiratory: Denies cough Gastrointestinal: Denies abdominal pain, Denies diarrhea, Denies nausea, Denies vomiting Musculoskeletal: Denies myalgias Integumentary: Denies pruritus, Denies rash Neurological: Denies numbness, Denies weakness Psychiatric: Reports anxiety, Reports mood swings, Denies depression Endocrine: Denies fatigue, Denies weight change Past Medical History Past Medical History: No Reported History History of Any Multi-Drug Resistant Organisms: None Reported Past Surgical History: No Surgical Hx Reported Past Psychological History: Anxiety, Bipolar Smoking Status: Current every day smoker Past Alcohol Use History: Occasional Additional Past Alcohol Use History / Comment(s): Patient is a smoker of one pack per day since he was 17 years of age. He does have history of marijuana use and Adderall abuse but he denies any recently. He has binge drinking alcohol prior to this admission. Past Drug Use History: Marijuana - Past Family History Father Additional Family Medical History / Comment(s): Father is alive at age 52 with history of alcohol abuse. Mother Additional Family Medical History / Comment(s): Mother is alive at age 51 with history of diabetes. Patient does not have any brothers. Patient has 2 sisters and one has anxiety. Medications and Allergies Home Medications Medication Instructions Recorded Confirmed Type [place] Carbonate 600 mg PO BID #56 cap 03/16/17 04/01/17 Rx risperiDONE MICROSPHERES 12.5 mg IM Q14D 14 Days 03/16/17 04/02/17 Rx [RisperDAL CONSTA] Albuterol Inhaler [Ventolin Hfa 2 puff INHALATION RT-Q6H PRN 04/02/17 04/02/17 History Inhaler] Nicotine 21Mg/24Hr Patch [Habitrol 1 patch TRANSDERM DAILY 04/02/17 04/02/17 History 21Mg/24Hr Patch] Allergies Allergy/AdvReac Type Severity Reaction Status Date / Time aripiprazole [From [facility]] AdvReac Swelling Verified 04/02/17 07:04 milk AdvReac Nausea & Verified 04/02/17 07:04 Vomiting & Diarrhea Physical Exam Vitals: Vital Signs Temp Pulse Pulse Resp BP BP Pulse Ox 04/02/17 02:56 98.9 F 83 16 138/86 04/02/17 01:13 97.0 F L 81 18 123/84 98 04/01/17 22:37 98.7 F 100 18 140/79 97 Intake and Output 04/01/17 04/02/17 04/02/17 22:59 06:59 14:59 Other: Weight 76.657 kg Gen: This is a 26-year-old male. He is cooperative and appears to be in no acute distress. HEENT: Head is atraumatic, normocephalic. Pupils equal, round. Sclerae is anicteric. NECK: Supple. No JVD. No lymphadenopathy. No thyromegaly. LUNGS: Clear to auscultation. No wheezes or rhonchi. No intercostal retractions. HEART: Regular rate and rhythm. No murmur. ABDOMEN: Soft. Bowel sounds are present. No masses. No tenderness. EXTREMITIES: No pedal edema. No calf tenderness. NEUROLOGICAL: Patient is awake, alert and oriented x3. Cranial nerves 2 through 12 are grossly intact. Cranial Nerve Examination - Cranial Nerves Cranial Nerve II- Optic: Intact Cranial Nerve III- Oculomotor: Intact Cranial Nerve IV- Trochlear: Intact Cranial Nerve V- Trigeminal: Intact Cranial Nerve - Abducens: Intact Cranial Nerve VII- Facial: Intact Cranial Nerve VIII- Auditory: Intact Cranial Nerve IX- Glossopharyngeal: Intact Cranial Nerve X- Vagus: Intact Cranial Nerve XI- Accessory: Intact Cranial Nerve XII- Hypoglossal: Intact Results CBC & Chem 7: 04/01/17 23:53 04/01/17 23:53 Labs: Abnormal Lab Results - Last 24 Hours (Table) 04/01/17 04/01/17 04/01/17 Range/Units 23:53 23:53 23:53 WBC 13.4 H (3.8-10.6) k/uL Neutrophils # 9.4 H (1.3-7.7) k/uL BUN 8 L (9-20) mg/dL LDL Cholesterol, Calc 105 H (0-99) mg/dL Assessment and Plan Plan: 1. Bipolar disorder. Patient admitted to the mental health unit. Continue current plan of care. Patient advised to not take NyQuil. 2. Tobacco use and dependence. Continue nicotine patch. 3. Alcohol abuse. Continue Ativan as needed. Thiamine and multivitamin will be added. Impression and plan of care have been directed as dictated by the signing physician. Kyra Brandt nurse practitioner acting as scribe for signing physician.
[2017-04-03] MEDS: NICOTINE 14MG/24HR PATCH TRANSDERM SCH (09:39)
[2017-04-03] MEDS: HALOPERIDOL 5 MG TAB PO SCH ×2 (09:40→20:59)
[2017-04-03] MEDS: BENZTROPINE MESYLATE 1 MG TAB PO SCH ×2 (09:40→20:59)
[2017-04-03] MEDS: LITHIUM CARBONATE ER 450 MG TABLET.ER PO SCH ×2 (09:41→20:59)
[2017-04-03] MEDS: THIAMINE 100 MG TAB PO SCH (12:06)
[2017-04-03] MEDS: MULTIVITAMINS, THERA 1 EACH TAB PO SCH (12:06)
--- NOTE | 2017-04-03 13:36 | P.PN ---
Progress Note - Text Progress Note Date: 04/03/17 26yo CM admitted on 04/02/17 after presenting with manic behavior and possible non-compliance to medications. He has a h/o of multiple hospitalizations with two to our facility in the recent past. Last 24hrs: Upon presentation this morning, pt appears to have an elevated mood with broad affect. He is talkative and slightly intrusive, approaching this provider and inviting me into a meeting he was having with the [facility] worker. In reference to his hospitalization, he states "I just migel lost it". His thoughts are racing and he is constantly making illogical statements, such as "I uploaded my consciousness on the internet...don't want to hurt anyone just all a publicity stunt...when I go into dione, everyone else is going into dione too". Pt frequently asking for validation of his thoughts as he is unsure if they are plausible or not. He states that prior to admission he was not sleeping very well, but did sleep 6 hrs last night on the unit. Also has been eating well. Denies hallucinations but does describe IOR as he relates things occurring in the media to situations occurring in his life. Does report grandiose delusions as "I sometimes think I'm [place]" and later compared his life to [place] , "but on a much less talented level". Reports that he has been drawing more as he is more creative when he is in a manic state. He has been compliant with medications on the unit and attending daily groups. MSE: Pt appears stated age and well-groomed. Pt ambulating well without assistance. His speech is of normal volume and slightly increased rate, but not pressured. He is verbose. Pt has good eye contact and guarded behavior. Mood appears to be elevated and affect broad. Pt denies hallucinations but does report +IOR. Also has some grandiose delusions. He denies SI and HI at this time. Thought process is loose. Memory is grossly intact. Judgment is limited with fair insight. Assessment: 1. Bipolar I DO, MRE dione with psychosis 2. h/o Alcohol use disorder Plan: Patient given a now dose of [place] 1200mg yesterday. Will start [place] ER 900mg BID today. Continue Risperdal Consta with next injection to be increased to 25mg IM on 04/16/17. Continue Haldol 5mg BID with Benztropine for now, to help with acute stabilization. Plan to eventually discontinue after patient has increased dose of injectable antipsychotic as to lower risk of EPS. Discuss discharge planning with treatment team. SW states that she spoke with patient's mother and it was stated that pt will be able to return to his father' s home upon discharge. Continue to monitor for safety. Encourage participation in daily groups and acclimation to current milieu.
[2017-04-04] MEDS: HALOPERIDOL 5 MG TAB PO SCH ×2 (08:57→20:50)
[2017-04-04] MEDS: NICOTINE 14MG/24HR PATCH TRANSDERM SCH (08:57)
[2017-04-04] MEDS: LITHIUM CARBONATE ER 450 MG TABLET.ER PO SCH ×2 (08:57→20:50)
[2017-04-04] MEDS: BENZTROPINE MESYLATE 1 MG TAB PO SCH ×2 (08:57→20:50)
[2017-04-04] MEDS: MULTIVITAMINS, THERA 1 EACH TAB PO SCH (12:55)
[2017-04-04] MEDS: THIAMINE 100 MG TAB PO SCH (12:55)
--- NOTE | 2017-04-04 18:22 | P.PN ---
Progress Note - Text Progress Note Date: 04/04/17 26yo CM admitted on 04/02/17 after presenting with manic behavior and possible non-compliance to medications. He has a h/o of multiple hospitalizations with two to our facility in the recent past. Last 24hrs: Upon presentation this afternoon, pt appears to be more tired and laying in his room during exam. He is cooperative and pleasant but much less elevated and talkative. He continues to report +IOR and loose thought process; however, easier to follow as compared to yesterday. Pt describes events that he feels led up to his current mental state. Reports that he feels he has been dealing with this for a long time but was self-medicating with alcohol in the past. 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 He states that he became associated with what he felt was the wrong crowd and began self-medicating. Pt goes on to report that he became overwhelmed and eventually "downloaded my conciousness to the internet". He goes on to further report some paranoid ideations that his aunt was controlling him and the people around him after this. States that he feels they were able to access his social media networks. He begins to discuss some correlation to politics and state that this started when Trump was elected but due to his current confused state of mind he is unable to finish this thought. Pt did attend group this morning but states that he is having a difficult time in group due to some of the other patients agitated him and inciting his dione. Has retreated to his room but feels that this is difficult as he is still experiencing racing thoughts. Pt has been compliant with his medications while on the unit and reports no adverse effects. Also, sleeping well at night and eating well. MSE: Pt appears stated age. Laying in bed. His speech is of normal volume and rate. Pt has good eye contact. Mood appears to be euthymic and affect slightly restricted. Pt denies hallucinations but does report +IOR. Also has some grandiose delusions. He denies SI and HI at this time. Thought process is loose. Memory is grossly intact. Judgment is limited with fair insight. Assessment: 1. Bipolar I DO, MRE dione with psychosis 2. h/o Alcohol use disorder Plan: Continue current medication regimen. Reviewed labs and thyroid and kidney function appear to be within normal limits at this time. Discuss discharge planning with treatment team. SW planning family meeting on Sunday. Continue to monitor for safety. Encourage participation in daily groups and acclimation to current milieu.
[2017-04-05] MEDS: BENZTROPINE MESYLATE 1 MG TAB PO SCH ×2 (08:41→20:39)
[2017-04-05] MEDS: HALOPERIDOL 5 MG TAB PO SCH ×2 (08:41→20:39)
[2017-04-05] MEDS: NICOTINE 14MG/24HR PATCH TRANSDERM SCH (08:41)
[2017-04-05] MEDS: LITHIUM CARBONATE ER 450 MG TABLET.ER PO SCH ×2 (08:41→20:39)
[2017-04-05] MEDS: THIAMINE 100 MG TAB PO SCH (12:07)
[2017-04-05] MEDS: MULTIVITAMINS, THERA 1 EACH TAB PO SCH (12:07)
--- NOTE | 2017-04-05 15:43 | P.PN ---
Progress Note - Text Progress Note Date: 04/05/17 26yo CM admitted on 04/02/17 after presenting with manic behavior and possible non-compliance to medications. He has a h/o of multiple hospitalizations with two to our facility in the recent past. Last 24hrs: Upon presentation this afternoon, pt appears more alert. Although, laying in bed, he is easily awakened and came to my office for further discussion. Patient reports that he feels more calm. He can now follow along with a conversation and give relevant responses. Pt states that he decided to discontinue his nicotine patch as he felt it was making him more anxious and interfering with the effectiveness of his other medications. He feels that he is doing much better without the patch and plans to discontinue smoking completely upon discharge. Pt has been sleeping well and has a good appetite. He has been participating in group regularly. No reported behavioral disturbances overnight. States that he still does "think all the time and pray all the time, but not spiraling like before". MSE: Pt appears stated age. Ambulating well without assistance. His speech is of normal volume and rate. Pt has good eye contact. Mood appears to be euthymic and affect appropriate. Pt denies hallucinations and no longer reports IOR. No grandiose delusions stated today. He denies SI and HI at this time. Thought process is linear and logical. Memory is grossly intact. Judgment and insight is fair. Assessment: 1. Bipolar I DO, MRE dione with psychosis 2. h/o Alcohol use disorder Plan: Continue current medication regimen. Discuss discharge planning with treatment team. [facility] planning family meeting on Sunday. Continue to monitor for safety. Encourage participation in daily groups and acclimation to current milieu.
[2017-04-06] MEDS: NICOTINE 14MG/24HR PATCH TRANSDERM SCH (09:03)
[2017-04-06] MEDS: HALOPERIDOL 5 MG TAB PO SCH ×2 (09:03→20:56)
[2017-04-06] MEDS: LITHIUM CARBONATE ER 450 MG TABLET.ER PO SCH ×2 (09:04→20:56)
[2017-04-06] MEDS: BENZTROPINE MESYLATE 1 MG TAB PO SCH ×2 (09:04→20:56)
[2017-04-06] MEDS: MULTIVITAMINS, THERA 1 EACH TAB PO SCH (12:08)
[2017-04-06] MEDS: THIAMINE 100 MG TAB PO SCH (12:08)
--- NOTE | 2017-04-06 15:18 | P.PN ---
Progress Note - Text Progress Note Date: 04/06/17 26yo CM admitted on 04/02/17 after presenting with manic behavior and possible non-compliance to medications. He has a h/o of multiple hospitalizations with two to our facility in the recent past. Last 24hrs: Upon presentation this afternoon, pt is calm and cooperative. Although, laying in bed, he is easily awakened and came to my office for further discussion. He has no difficulty in engaging in conversation and giving relevant answers to questions. Pt has been sleeping well and has a good appetite. He has been participating in group regularly. No reported behavioral disturbances overnight. 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 No longer stating any paranoid ideations about his Aunt or other family members in relation to them trying to control him. MSE: Pt appears stated age. Ambulating well without assistance. His speech is of normal volume and rate. Pt has good eye contact. Mood appears to be euthymic and affect appropriate. Pt denies hallucinations and no longer reports IOR. He denies SI and HI at this time. Thought process is linear and logical. Memory is grossly intact. Judgment and insight is fair. Assessment: 1. Bipolar I DO, MRE dione with psychosis 2. h/o Alcohol use disorder Plan: Continue current medication regimen. Discussed the option of tapering off Haldol during hospitalization as to avoid treatment with two antipsychotics; however, pt would like to remain on current regimen as he states he finally feels "normal" and would like to consider tapering off in the future on an outpatient basis. Discuss discharge planning with treatment team. Possible DC on Sunday or Sunday. SW planning family meeting with mother today. Continue to monitor for safety. Encourage participation in daily groups and acclimation to current milieu. Will obtain a [place] level in the morning.
[2017-04-07] MEDS: BENZTROPINE MESYLATE 1 MG TAB PO SCH ×2 (08:13→22:00)
[2017-04-07] MEDS: THIAMINE 100 MG TAB PO SCH (08:13)
[2017-04-07] MEDS: HALOPERIDOL 5 MG TAB PO SCH ×2 (08:13→22:00)
[2017-04-07] MEDS: MULTIVITAMINS, THERA 1 EACH TAB PO SCH (08:14)
[2017-04-07] MEDS: NICOTINE 14MG/24HR PATCH TRANSDERM SCH (08:14)
[2017-04-07] MEDS: LITHIUM CARBONATE ER 450 MG TABLET.ER PO SCH ×2 (09:00→22:00)
--- NOTE | 2017-04-07 16:36 | P.PN ---
Progress Note - Text Progress Note Date: 04/07/17 Interval history: Patient seen in cross coverage today for Dr. Alberto. He reports that he was admitted with manic symptoms. Feels like the dione stabilize well now. He feels like he is doing well on the current medication regimen. He does state that with lithium it's very important for him to be consistent with it because if he misses one dose he has noticed that he can become manic. He is also been receiving Risperdal Consta. Haldol 5 mg twice a day is also part of his current medication regimen. He does not seem to voice any adverse psychotropic medication side effects. He talks about several different healthy living strategies which he wrote on a piece of paper such as healthy diet and exercise. He did have a family meeting. He has recently been in [facility] treatment. Mental status exam: He is alert and cooperative with the interview. His speech is fluent, not rapid or pressured. Thought processes are organized. His mood overall seems to be improved. He does not verbalize any thoughts of harm to self or others. No evidence of active psychosis or any agitation. Plan: Patient will be maintained on current psychotropic medication regimen this point in time. We will monitor for any medication side effects and monitor his ongoing response. He is showing improved status. We'll continue to cover this patient for Dr. Alberto through the weekend.
[2017-04-07 19:19] LABS: Appearance,Urine Clear (Clear); Bilirubin,Urine Negative (Negative); Glucose,Urine (UA) Negative (Negative); Ketones,Urine Negative (Negative); Leukocyte Esterase,Urine Small (Negative); Nitrite,Urine Negative (Negative); PH, Urine 6.5 (5.0-8.0); Particle Count 473; Protein,Urine Negative (Negative); Specific Gravity,Urine 1.009 (1.001-1.035); UA Billing (MACRO vs. MICRO) MICRO; Urobilinogen,Urine <2.0 mg/dL (<2.0); WBC,Urine <1 /hpf (0-5)
[2017-04-08 01:48] VITALS: RESP 16
[2017-04-08] MEDS: NICOTINE 14MG/24HR PATCH TRANSDERM SCH (09:36)
[2017-04-08] MEDS: HALOPERIDOL 5 MG TAB PO SCH ×2 (09:36→21:21)
[2017-04-08] MEDS: LITHIUM CARBONATE ER 450 MG TABLET.ER PO SCH ×2 (09:36→21:21)
[2017-04-08] MEDS: BENZTROPINE MESYLATE 1 MG TAB PO SCH ×2 (09:36→21:21)
[2017-04-08] MEDS: MULTIVITAMINS, THERA 1 EACH TAB PO SCH (13:12)
[2017-04-08] MEDS: THIAMINE 100 MG TAB PO SCH (13:12)
--- NOTE | 2017-04-08 18:45 | P.PN ---
Progress Note - Text Progress Note Date: 04/08/17 Interval history: Patient is seen in cross coverage again today for Dr. Alberto. He reports that he is feeling well mood gagnon and he talks about looking for discharge planning. He seems to be tolerating the current psychotropic medication regimen well. Talks also has talents and some of the things he would like to do in the future. Mental status exam: He is alert and cooperative with the interview. His speech is fluent, not rapid or pressured. His thought processes are organized. He denies any thoughts of harm to self or others. No evidence of psychosis or agitation. Plan: We'll maintain current psychotropic medication regimen. Continue to monitor his mood. Would look for discharge planning soon. Dr. Alberto resume care this patient starting tomorrow.
[2017-04-09 07:03] VITALS: BP 97/58; PULSE 69; TEMP 97.9
[2017-04-09] MEDS: BENZTROPINE MESYLATE 1 MG TAB PO SCH (09:27)
[2017-04-09] MEDS: LITHIUM CARBONATE ER 450 MG TABLET.ER PO SCH (09:27)
[2017-04-09] MEDS: NICOTINE 14MG/24HR PATCH TRANSDERM SCH (09:27)
[2017-04-09] MEDS: HALOPERIDOL 5 MG TAB PO SCH (09:27)
[2017-04-09] MEDS: MULTIVITAMINS, THERA 1 EACH TAB PO SCH (12:04)
[2017-04-09] MEDS: THIAMINE 100 MG TAB PO SCH (12:04)
--- NOTE | 2017-04-09 14:37 | P.PN ---
Progress Note - Text Progress Note Date: 04/09/17 26yo CM admitted on 04/02/17 after presenting with manic behavior and possible non-compliance to medications. He has a h/o of multiple hospitalizations with two to our facility in the recent past. Last 24hrs: Upon presentation this morning, pt is calm and cooperative. He did not display any behavioral outbursts over the weekend. Pt has been sleeping well and has a good appetite. He is attending groups. Compliant with medications and no reported adverse effects. Feels that this combination of medications has been very effective for him and he now feels "normal". MSE: Pt appears stated age. Ambulating well without assistance. His speech is of normal volume and rate. Pt has good eye contact. Mood appears to be euthymic and affect appropriate. Pt denies hallucinations and no longer reports IOR. He denies SI and HI at this time. Thought process is linear and logical. Memory is grossly intact. Judgment and insight is fair. [place] Level - 0.9 Assessment: 1. Bipolar I DO, MRE dione with psychosis 2. h/o Alcohol use disorder Plan: Continue current medication regimen. Will discharge today.
--- NOTE | 2017-04-09 14:54 | P.DS ---
Providers Date of admission: 04/02/17 01:07 Attending physician: Neel Alberto DO Consults: 04/02/17 04:26 Consult Physician Routine Consulting Provider: Efrain Cardoso Reason/Comments: H and P with medical follow up. Do you want consulting provider notified?: Yes, Notify in am Primary care physician: Efrain Cardoso - Discharge Diagnosis(es) (1) Bipolar I disorder, recurrent manic episode Status: Acute Hospital Course: Upon admission, patient was given a one time dose of [place] 1200mg to aide in acute stabilization of his mood and then started on [place] ER 900mg BID. He had been given a Risperdal Consta injection 12.5mg IM on March 29, prior to admission. However, due to his acute presentation, he was given another injection of Risperdal Consta 12.5mg IM on day of admission with the plan to increase his dose to 25mg IM on next scheduled dose in two weeks. Patient was also started on Haldol 5mg PO BID to help with augmentation of prescribed [place] for treatment of Bipolar Disorder and Benztropine 1mg BID to prevent side effects from antipsychotic therapy. Throughout his hospital course, patient did show significant improvement in symptoms and mental status. He was initially very talkative with loose thought process. Patient also reported ideas of reference (IOR) and paranoid ideations. However, pt gradually began to speak more logically and display linear and logical thought process. He gained insight into his illness and was able to vocalize desired goals for after discharge. During hospitalization, patient slept well and actively participated in groups. He maintained compliance to his scheduled medications and did not report any adverse effects. Patient did decide to discontinue his nicotine patch during hospitalization as he felt it was causing him to be more nervous; he did not desire any alternative medications for smoking cessation upon discharge. A lithium level was obtained on 04/07/17 with results of 0.9. Patient was felt to be stable for discharge on 04/09/17 as he no longer reported IOR, symptoms of dione, loose associations of thought or paranoid ideations. He was calm and cooperative on the unit and taking medications as prescribed. Emphasized the importance of follow-up with psychiatric treatment on an outpatient basis and compliance with prescribed medications to prevent recurrent hospitalizations. Patient Condition at Discharge: Stable Plan - Discharge Summary New Discharge Prescriptions: New Benztropine Mesylate [Cogentin] 1 mg PO BID #60 tab Haloperidol [Haldol] 5 mg PO BID #60 tab [place] Carbonate ER [Lithobid] 900 mg PO BID #60 tab Thiamine [Vitamin B-1] 100 mg PO DAILY@1200 #30 tab risperiDONE MICROSPHERES [RisperDAL CONSTA] 25 mg IM [id number] #1 syringe Continue Albuterol Inhaler [Ventolin Hfa Inhaler] 2 puff INHALATION RT-Q6H PRN PRN Reason: Shortness Of Breath Discontinued [place] Carbonate 600 mg PO BID #56 cap risperiDONE MICROSPHERES [RisperDAL CONSTA] 12.5 mg IM Q14D 14 Days Nicotine 21Mg/24Hr Patch [Habitrol 21Mg/24Hr Patch] 1 patch TRANSDERM DAILY Discharge Medication List Albuterol Inhaler [Ventolin Hfa Inhaler] 2 puff INHALATION RT-Q6H PRN 04/02/17 [ History] Benztropine Mesylate [Cogentin] 1 mg PO BID #60 tab 04/09/17 [Rx] Haloperidol [Haldol] 5 mg PO BID #60 tab 04/09/17 [Rx] [place] Carbonate ER [Lithobid] 900 mg PO BID #60 tab 04/09/17 [Rx] Thiamine [Vitamin B-1] 100 mg PO DAILY@1200 #30 tab 04/09/17 [Rx] risperiDONE MICROSPHERES [RisperDAL CONSTA] 25 mg IM [id number] #1 syringe [Rx] Follow up Appointment(s)/Referral(s): [facility] [Outside] - 04/09/17 4:00 pm (04/09/17 at 4:00pm with Nabila Castillo 04/11 @ 09:[address] Lozano) Efrain Cardoso MD [Primary Care Provider] - 1-2 days Patient Instructions/Handouts: Generalized Anxiety Disorder (ED) Discharge Disposition: HOME SELF-CARE
== END 2017-04-09 13:58 | disposition home or self-care (01) | DRG 885 ==
LOC: EC 22:28 → 3MHU 04-02 01:07
PROVIDERS: ADMIT Psychiatry & Neurology Psychiatry; ATTEND Psychiatry & Neurology Psychiatry
DX: F31.2 Bipolar disorder, current episode manic severe with psychotic features (principal); Z91.14 Patient's other noncompliance with medication regimen; F41.9 Anxiety disorder, unspecified; F10.10 Alcohol abuse, uncomplicated; F17.200 Nicotine dependence, unspecified, uncomplicated; Z79.899 Other long term (current) drug therapy; Z88.8 Allergy status to other drugs, medicaments and biological substances; Z91.011 Allergy to milk products
CPT/HCPCS: 36415; 80048; 80061; 80178; 80306; 81001; 82075; 83036; 84443; 85025; 96372; 99285

== ENCOUNTER 2018-06-27 19:50 | Emergency (ER) | payer MEDICARE, OTHER ==
[2018-06-27 20:07] VITALS: RESP 18
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
[2018-06-27 21:34] LABS: Phencyclidine Screen,Urine Not Detected (NotDetected); Urn Cannabinoid Scrn Not Detected (NotDetected)
[2018-06-27 21:35] LABS: Amphetamine Screen,Urine Not Detected (NotDetected); Barbiturate Screen,Urine Not Detected (NotDetected); Benzodiazepines Screen,Urine Not Detected (NotDetected); Cocaine Screen,Urine Not Detected (NotDetected); Methadone Screen, Urine Not Detected (NotDetected); Opiate Screen,Urine Not Detected (NotDetected); Oxycodone Screen, Urine Not Detected (NotDetected); Tricyclic Antidepressant,Urine Not Detected (NotDetected)
[2018-06-27 23:18] VITALS: BP 144/83; PULSE 110; TEMP 98
== END 2018-06-27 23:16 | disposition other institution (70) ==
LOC: EC 19:50
DX: F39 Unspecified mood [affective] disorder (principal); F10.129 Alcohol abuse with intoxication, unspecified; F31.9 Bipolar disorder, unspecified; F41.9 Anxiety disorder, unspecified; F17.200 Nicotine dependence, unspecified, uncomplicated; Z91.011 Allergy to milk products; Z88.8 Allergy status to other drugs, medicaments and biological substances
CPT/HCPCS: 80306; 99285

== ENCOUNTER 2018-07-24 17:33 | Emergency (ER) | payer MEDICARE, OTHER ==
[2018-07-24 17:43] VITALS: RESP 16
--- NOTE | 2018-07-24 18:27 | ED ---
Male Urogenital HPI - General Chief complaint: Urogenital Stated complaint: Male Time Seen by Provider: 07/24/18 17:45 Source: patient, RN notes reviewed Mode of arrival: ambulatory Limitations: no limitations - History of Present Illness Initial comments: 28-year-old male presents emergency Department with chief complaint of left testicular bump. Patient states that has been there for approximately one month but increasing in size. He states is no associated pain. Denies any dysuria, hematuria, urinary frequency. Denies any trauma. Patient states never had any evaluation for this in the past. Patient denies fever or chills. Patient offers no other complaints. No history testicular surgery. - Related Data Home Medications Medication Instructions Recorded Confirmed [place] Carbonate 300mg Tablet 600 mg PO BID@0600,1730 06/27/18 07/24/18 Multivitamins, Thera [Multivitamin 1 tab PO DAILY 07/24/18 07/24/18 (formulary)] Thiamine [Vitamin B-1] 100 mg PO DAILY 07/24/18 07/24/18 Previous Rx's Medication Instructions Recorded Doxycycline Monohydrate [Monodox] 100 mg PO Q12HR #20 cap 07/24/18 Allergies Allergy/AdvReac Type Severity Reaction Status Date / Time aripiprazole [From Abilify] AdvReac Swelling Verified 07/24/18 17:59 milk AdvReac Nausea & Verified 07/24/18 17:59 Vomiting & Diarrhea Review of Systems ROS Statement: Those systems with pertinent positive or pertinent negative responses have been documented in the HPI. ROS Other: All systems not noted in ROS Statement are negative. Past Medical History Past Medical History: No Reported History History of Any Multi-Drug Resistant Organisms: None Reported Past Surgical History: No Surgical Hx Reported Past Psychological History: Anxiety, Bipolar Smoking Status: Current every day smoker Past Alcohol Use History: Occasional Past Drug Use History: None Reported, Marijuana - Past Family History Father Additional Family Medical History / Comment(s): Father is alive at age 52 with history of alcohol abuse. Mother Additional Family Medical History / Comment(s): Mother is alive at age 51 with history of diabetes. Patient does not have any brothers. Patient has 2 sisters and one has anxiety. General Exam Limitations: no limitations General appearance: alert, in no apparent distress Head exam: Present: atraumatic, normocephalic, normal inspection Neck exam: Present: normal inspection. Absent: tenderness, meningismus, lymphadenopathy Respiratory exam: Present: normal lung sounds bilaterally. Absent: respiratory distress, wheezes, rales, rhonchi, stridor Cardiovascular Exam: Present: regular rate, normal rhythm, normal heart sounds. Absent: systolic murmur, diastolic murmur, rubs, gallop, clicks GI/Abdominal exam: Present: soft, normal bowel sounds. Absent: distended, tenderness, guarding, rebound, rigid exam: Present: normal inspection, circumcision, other (Left testicle there is a small firm non- mobile mass, no erythema, no lesions or sores are noted). Absent: urethral discharge, scrotal swelling, vertical testicular lie Skin exam: Present: warm, dry, intact, normal color. Absent: rash Course Vital Signs 07/24/18 17:39 Temperature 97.4 F L Pulse Rate 60 Respiratory 16 Rate Blood Pressure 127/80 O2 Sat by Pulse 100 Oximetry Medical Decision Making - Medical Decision Making 28-year-old male presented emergency from for mass on his left testicle. He does have a slightly enlarged epididymis will be treated for epididymitis at this time secondary to enlargement. Patient will be given Rocephin, doxycycline return parameters were discussed. - Lab Data Lab Results 07/24/18 Range/Units 18:35 Urine Color Yellow Urine Appearance Clear (Clear) Urine pH 7.0 (5.0-8.0) Ur Specific [place] 1.008 (1.001-1.035) Urine Protein Negative (Negative) Urine Glucose (UA) Negative (Negative) Urine Ketones Negative (Negative) Urine Blood Negative (Negative) Urine Nitrite Negative (Negative) Urine Bilirubin Negative (Negative) Urine Urobilinogen <2.0 (<2.0) mg/dL Ur Leukocyte Esterase Negative (Negative) Disposition Clinical Impression: Epididymitis Disposition: HOME SELF-CARE Condition: Stable Instructions (If sedation given, give patient instructions): Epididymitis (ED) Additional Instructions: Please return to the Emergency Department if symptoms worsen or any other concerns. Prescriptions: Doxycycline Monohydrate [Monodox] 100 mg PO Q12HR #20 cap Is patient prescribed a controlled substance at d/c from ED?: No Referrals: Efrain Cardoso MD [Primary Care Provider] - 1-2 days Time of Disposition: 19:02
[2018-07-24 18:49] LABS: Appearance,Urine Clear (Clear); Bilirubin,Urine Negative (Negative); Blood,Urine Negative (Negative); Color,Urine Yellow; Glucose,Urine (UA) Negative (Negative); Ketones,Urine Negative (Negative); Leukocyte Esterase,Urine Negative (Negative); Nitrite,Urine Negative (Negative); Protein,Urine Negative (Negative); Specific Gravity,Urine 1.008 (1.001-1.035); Urobilinogen,Urine <2.0 mg/dL (<2.0)
--- NOTE | 2018-07-24 18:55 | US ---
EXAMINATION TYPE: US scrotum with doppler. Grayscale and color Doppler Duplex imaging performed of t [place] scrotum. DATE OF EXAM: 07/24/2018 COMPARISON: NONE CLINICAL HISTORY: Pain. Left side lump. EXAM MEASUREMENTS: TESTICLES: Right Testicle: 4.0 x 2.5 x 4.1 cm Left Testicle: 5.1 x 2.3 x 4.7 cm EPIDIDYMIS HEAD: Right Epididymis: .6 x .9 x .6 cm Left Epididymis: .9 x 1.0 x .9 cm Doppler performed to assess for testicular vascularity; good bilateral color flow and waveforms are s een. There is no evidence of testicular torsion. Presence of hydroceles: No Presence of varicoceles: No IMPRESSION: No testicular torsion or mass.
[2018-07-24] MEDS ORDERED: cefTRIAXone 250 MG VIAL IM STA (19:02)
[2018-07-24 21:13] VITALS: BP 122/68; PULSE 64; TEMP 97.8
== END 2018-07-24 21:00 | disposition home or self-care (01) ==
LOC: EC 17:33
DX: N45.1 Epididymitis (principal); F31.9 Bipolar disorder, unspecified; F17.200 Nicotine dependence, unspecified, uncomplicated; Z79.899 Other long term (current) drug therapy; Z88.8 Allergy status to other drugs, medicaments and biological substances; Z91.011 Allergy to milk products
CPT/HCPCS: 99284; 96372; 81003; 93975; 76870; J0696

== ENCOUNTER 2018-09-05 23:48 | Emergency (ER) | payer MEDICARE, OTHER ==
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
[2018-09-06 00:03] VITALS: BP 148/103; PULSE 94; RESP 16; TEMP 98.6
== END 2018-09-06 00:27 ==
LOC: EC 23:48
DX: F10.129 Alcohol abuse with intoxication, unspecified (principal); Z04.89 Encounter for examination and observation for other specified reasons; F31.9 Bipolar disorder, unspecified; F41.9 Anxiety disorder, unspecified; F17.200 Nicotine dependence, unspecified, uncomplicated; Z79.899 Other long term (current) drug therapy; Z88.8 Allergy status to other drugs, medicaments and biological substances; Z91.011 Allergy to milk products
CPT/HCPCS: 99282

== ENCOUNTER 2019-04-13 19:46 | Inpatient (IN) | payer MEDICARE, OTHER ==
[2019-04-13] MEDS ORDERED: MAG HYDROX/AL HYDROX/SIMETH 30 ML CUP PO PRN (21:25)
[2019-04-13] MEDS ORDERED: ACETAMINOPHEN TAB 325 MG TAB PO PRN (21:25)
[2019-04-13] MEDS ORDERED: LORazepam 1 MG TAB PO PRN (21:25)
[2019-04-13] MEDS ORDERED: MAGNESIUM HYDROXIDE 2,400 MG/10 ML CUP PO PRN (21:25)
[2019-04-13] MEDS ORDERED: LORazepam 2 MG/ML INJ IM PRN (21:32)
[2019-04-13] MEDS ORDERED: HALOPERIDOL LACTATE 5 MG/ML 1 ML VIAL IM PRN (21:45)
--- NOTE | 2019-04-13 21:53 | P.CONS ---
History of Present Illness - Reason for Consult Consult date: 04/13/19 - History of Present Illness Patient is a 28-year-old male with a past medical history of bipolar 1 disorder and alcohol abuse who is a patient of [facility] who had missed his appointments for the last few months was brought in under police custody for psychosis and was transferred from [facility] emergency room. The patient was reportedly dancing naked in the park and was acting bizarre. At time of the interview, the patient noted that he feels better, but continued to exhibit flight of ideas and tangentiality. He however denied any complaints including chest pain, shortness of breath, nausea, vomiting, dizziness, diaphoresis, abdominal pain, or diarrhea. He denied any substance abuse.the patient underwent an extensive evaluation at [facility] which revealed a urine toxicology was unremarkable, WBC count of 11.3, hemoglobin 15.2, platelets 260, sodium 143, potassium 3.9, BUN 4, creatinine 0.8, and glucose of 86. The patient was admitted to the psychiatric unit at [place] for further management with medicine consult. Review of Systems Pertinent positives and negatives as discussed in HPI, a complete review of systems was performed and all other systems are negative. Past Medical History Past Medical History: No Reported History History of Any Multi-Drug Resistant Organisms: None Reported Past Surgical History: No Surgical Hx Reported Smoking Status: Current every day smoker - Past Family History Father Additional Family Medical History / Comment(s): Father is alive at age 52 with history of alcohol abuse. Mother Additional Family Medical History / Comment(s): Mother is alive at age 51 with history of diabetes. Patient does not have any brothers. Patient has 2 sisters and one has anxiety. Medications and Allergies Home Medications Medication Instructions Recorded Confirmed Type [place] Carbonate 300mg Tablet 600 mg PO BID 06/27/18 04/13/19 History Allergies Allergy/AdvReac Type Severity Reaction Status Date / Time aripiprazole [From [facility]] AdvReac Swelling Verified 04/13/19 21:34 milk AdvReac Nausea & Verified 04/13/19 21:34 Vomiting & Diarrhea Physical Exam Vitals: Vital Signs Temp Pulse Resp BP Pulse Ox 04/13/19 21:23 97 F L 88 16 132/68 97 Intake and Output 04/13/19 04/13/19 04/13/19 06:59 14:59 22:59 Other: Weight 72.603 kg General: non toxic, no distress, appears at stated age, normal weight Derm: no unusual rashes/lesions no unusual ecchymoses, warm, dry Head: atraumatic, normocephalic, symmetric Eyes: EOMI, no lid lag, anicteric sclera, pupils equal round reactive to light ENT: Nose and ears atraumatic, no thrush, no pharyngeal erythema Neck: No thyromegaly, no cervical lymphadenopathy, trachea midline, supple Mouth: no lip lesion, mucus membranes moist Cardiovascular: S1S2 reg, no murmur, positive posterior tibial pulse bilateral, no edema, capillary refill less than 2 seconds Lungs: CTA bilateral, no rhonchi, no rales , no accessory muscle use Abdominal: soft, nontender to palpation, no guarding, no appreciable organomegaly, normal bowel sounds Ext: no gross muscle atrophy, muscle strength 5 out of 5 in all 4 extremities grossly, no contractures, Neuro: CN II-XI grossly intact, light touch intact all 4 extremities, finger to nose within normal limits, Psych: Alert, oriented, flat affect, flight of ideas, tangentiality Assessment and Plan Plan: Psychosis w/ Bipolar 1 -As per psychiatry EtOH abuse -Patient reports drinking red wine regularly -Last drink was yesterday -Denied hx of DTs or EtOH withdrawal -Monitor for signs of withdrawal Thank you for allowing us to participate in the care of this patient. We will follow peripherally. Do not hesitate to contact us with questions. Someone can be reached from the [facility] [place] hospitalist group at all hours of the day at [phone].
[2019-04-14] MEDS: THIAMINE 100 MG TAB PO SCH ×2 (01:27→09:45)
[2019-04-14] MEDS: MULTIVITAMINS, THERA 1 EACH TAB PO SCH ×2 (01:27→09:45)
[2019-04-14] MEDS: NICOTINE 14MG/24HR PATCH TRANSDERM SCH (09:45)
[2019-04-14 10:26] LABS: Basophils % (A) 1 %; Eosinophils # (A) 0.2 k/uL (0-0.7); Eosinophils % (A) 2 %; HCT 45.9 % (39.0-53.0); HGB 14.9 gm/dL (13.0-17.5); Lymphocytes # (A) 1.9 k/uL (1.0-4.8); Lymphocytes % (A) 21 %; MCH 31.5 pg (25.0-35.0); MCHC 32.4 g/dL (31.0-37.0); MCV 97.2 fL (80.0-100.0); Mean Platelet Volume 6.7; Monocytes # (A) 0.5 k/uL (0-1.0); Monocytes % (A) 6 %; Neutrophils # (A) 6.1 k/uL (1.3-7.7); Neutrophils % (A) 68 %; Platelet Count 266 k/uL (150-450); RBC 4.72 m/uL (4.30-5.90); RDW 13.1 % (11.5-15.5)
[2019-04-14 10:33] LABS: ALT 34 U/L (21-72); AST 50 U/L (17-59); African American GFR (CKD) >90 (>60 ml/min/1.73 sqM); Albumin 4.4 g/dL (3.5-5.0); Alkaline Phosphatase 66 U/L (38-126); Anion Gap 9 mmol/L; Bilirubin, Delta 0.2 mg/dL (0.0-0.2); Bilirubin,Unconjugated 0.5 mg/dL (0.0-1.1); Blood Urea Nitrogen 12 mg/dL (9-20); Calcium 9.3 mg/dL (8.4-10.2); Carbon Dioxide 28 mmol/L (22-30); Chloride 105 mmol/L (98-107); Glucose 99 mg/dL (74-99); Potassium 4.1 mmol/L (3.5-5.1); Sodium 142 mmol/L (137-145); Total Bilirubin 0.7 mg/dL (0.2-1.3); Total Protein 7.3 g/dL (6.3-8.2)
--- NOTE | 2019-04-14 15:45 | P.HP ---
Psychiatric H&P - . H&P Date: 04/14/19 History & Physical: IDENTIFYING INFORMATION: Triston Shaffer is a 28-year-old single male who is currently homeless after was administratively discharged from [facility] inpatient substance use disorder residential treatment, unemployed but he called himself are test and he reported he is on SSD, has psychiatric history of bipolar disorder, alcohol use disorder, and denies any history of medical problems. The patient has been admitted to our inpatient psychiatric services after been transferred from [facility] emergency room. Patient was initially brought to the emergency room by the police. The patient has been admitted on involuntary basis to our service. CHIEF COMPLAINT: As per ER report bizarre behavior, psychosis, and violent behavior HISTORY OF PRESENT ILLNESS: The patient with chronic history of bipolar disorder and alcohol use disorder who has been noncompliant with outpatient psychiatric treatment at [facility] and was brought to the ER by the police for psychosis and bizarre behavior. Reportedly, the patient was dancing naked in the park and he was acting bizarre. Patient presented to the ER was flight of ideas, tangential, and responding to internal stimuli. Patient blood alcohol level was 65 at the time he presented to the ER. As per emergency room report at [facility] the patient presented with thought blocking, flight of ideas, and appeared to be responding to internal stimuli. As per police report, the patient get out of control and he was bizarre talking about he is bilingual and he is in love with other girl. Patient was very guarded during the rest of assessment and he didn't answer any further questions. He reported that he is prescribed lithium only as needed and he has not been taking it. Based on psychiatric evaluation today, the patient presented was bizarre thoughts and speech. 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 Initially, the patient denies having any psychiatric illness and couldn't explain why he is prescribed lithium. Later during interview patient admitted for diagnosis of bipolar disorder and reports history of previous manic and depressive episodes with the last time was" years ago". He reports since he started on lithium and he feels better control of his mood cycles and he denies feeling depressed or manic at the current time. Patient reports that that he was brought to the hospital because he was arrested while he was sitting in the park and he couldn't explain why police arrested him. He claimed that he was taking his lithium as prescribed until 2 days ago when he stopped taking it. He was talking about he is in love with other care and was talking about he doesn't know if she is a girl or not. At one point he admitted for dancing with this girl in the park and he was so scared. He admitted for drinking alcohol but minimizes that" a few sips". Patient was very superficial and did not reliable historian, but he admitted for history of previous manic episodes when he has very" hyper" mood with impulsive or irrational behavior, and previous depressive episodes with feeling hopeless, worthless and suicidal" sometimes". Patient denies any current or previous symptoms of severe anxiety including always worried, racing thoughts, feeling very tense and not easy to relax. He denies panic attacks. He denies history of flashbacks or nightmares. He denies any history of self-injurious behavior. Patient denies any current or previous history of auditory, visual, or other hallucinations, and he denies any paranoid ideation. 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 PAST PSYCHIATRIC HISTORY: Previous diagnoses: Bipolar disorder, alcohol use disorder. Previous psychiatric hospitalizations: Several times, as per record patient was admitted to this unit in March 2017. Previous suicide attempts: Denies any previous suicidal attempts. Previous outpatient psychiatric treatment: Reported patient has been followed with [facility] and last time was seen as per record February 2019. Current psychiatric medications: Reported was maintained on medication lithium for mood stabilization but he couldn't recall the dose. Previous medication trials: Reported previous trials of Lamictal" was okay", Gene Gonzalezdon" both didn't work". SUBSTANCE ABUSE HISTORY: Nicotine: 2 packs per day for the last 10 years. Alcohol: Admitted for history of heavy alcohol drinking but he was very evasive and superficial in his answers. He reports a started heavy drinking 2 years ago, but denies any history of DUI, or severe alcohol withdrawal symptoms. Reports currently he is on probation and he couldn't drink, however; his BAL was 65 when he presented to the ER. Denies any history of using street drugs including marijuana, opioid, cocaine, or methamphetamine. Denies any history of IV drug use. Reports previous substance use disorder treatment and recently he was admitted to [facility] which is an inpatient residential treatment but he was administratively discharged from this place because he wasn't following the rules as per patient report. Social History: Patient was born in [facility] and raised up by his parents. Parents were until they when patient was 25-year-old. Housing: Currently homeless. The patient is currently not and not in any relationship. 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 Education: Patient reports attaining an educational level of high school, bachelor degree in drawing and painting, Master degree in painting from [employer] as per patient report. Children: Patient reports having no children. Legal history: Reports previous times in penitentiary related to alcohol drinking History of psychological trauma: Denies any history of psychological trauma FAMILY HISTORY: Psychiatric Illness: Reports" may be some of my family has mental illness but I am not sure". Substance abuse: Father was alcoholic Completed Suicides: Has any family history of suicide. MENTAL STATUS EVALUATION: Appearance: Appears stated age, not well groomed, average body built, and specific features that he is coloring his forearm. Gait/ posture: Steady gait, normal arm swinging, no abnormal movements, with relaxed posture. Attitude and Behavior: Bizarre, fair eye contact during course of interview. Motor Activity: Normal psychomotor activity. Speech: spontaneous, normal rate, rhythm, and articulation. Average volume. Not pressured. Language: Articulating, naming objects and repeat phrases. Mood: "anxious" Affect: Flat. Thought process: Bizarre. Association: Circumstantial. Thought content: Grandiose delusions, denies suicidal thoughts, denies homicidal thoughts, denies intentions, or plans. Perception: Denies auditory or visual hallucinations Alertness: No impairment. Concentration: Impaired Orientation: Alert and oriented to person, place, time, and situation Insight regarding psychiatric condition: Limited Judgment regarding daily activities and social situation: Limited Impulse control: Unpredictable Strenghts: Stable general medical condition. SSD Challenges: Poor compliance with treatment. Alcohol use. Allergies Allergy/AdvReac Type Severity Reaction Status Date / Time aripiprazole [From [facility]] AdvReac Swelling Verified 04/13/19 21:48 milk AdvReac Nausea & Verified 04/13/19 21:48 Vomiting & Diarrhea Vital Signs Temp 98.7 F 04/14/19 05:03 Pulse 123 H 04/14/19 05:03 Resp 16 04/14/19 05:03 BP 106/74 04/14/19 05:03 Pulse Ox 97 04/13/19 21:23 Intake & Output 04/13/19 04/14/19 04/14/19 18:59 06:59 18:59 Weight 72.603 kg Review of Lab results: Laboratory Last Values WBC 9.0 k/uL (3.8-10.6) 04/14/19 09:52 RBC 4.72 m/uL (4.30-5.90) 04/14/19 09:52 Hgb 14.9 gm/dL (13.0-17.5) 04/14/19 09:52 Hct 45.9 % (39.0-53.0) 04/14/19 09:52 MCV 97.2 fL (80.0-100.0) 04/14/19 09:52 MCH 31.5 pg (25.0-35.0) 04/14/19 09:52 MCHC 32.4 g/dL (31.0-37.0) 04/14/19 09:52 RDW 13.1 % (11.5-15.5) 04/14/19 09:52 Plt Count 266 k/uL (150-450) 04/14/19 09:52 Neutrophils % 68 % 04/14/19 09:52 Lymphocytes % 21 % 04/14/19 09:52 Monocytes % 6 % 04/14/19 09:52 Eosinophils % 2 % 04/14/19 09:52 Basophils % 1 % 04/14/19 09:52 Neutrophils # 6.1 k/uL (1.3-7.7) 04/14/19 09:52 Lymphocytes # 1.9 k/uL (1.0-4.8) 04/14/19 09:52 Monocytes # 0.5 k/uL (0-1.0) 04/14/19 09:52 Eosinophils # 0.2 k/uL (0-0.7) 04/14/19 09:52 Basophils # 0.0 k/uL (0-0.2) 04/14/19 09:52 Sodium 142 mmol/L (137-145) 04/14/19 09:52 Potassium 4.1 mmol/L (3.5-5.1) 04/14/19 09:52 Chloride 105 mmol/L (98-107) 04/14/19 09:52 Carbon Dioxide 28 mmol/L (22-30) 04/14/19 09:52 Anion Gap 9 mmol/L 04/14/19 09:52 BUN 12 mg/dL (9-20) 04/14/19 09:52 Creatinine 1.16 mg/dL (0.66-1.25) 04/14/19 09:52 Est GFR (CKD-EPI)AfAm >90 (>60 ml/min/1.73 sqM) 04/14/19 09:52 Est GFR (CKD-EPI)NonAf 85 (>60 ml/min/1.73 sqM) 04/14/19 09:52 Glucose 99 mg/dL (74-99) 04/14/19 09:52 Calcium 9.3 mg/dL (8.4-10.2) 04/14/19 09:52 Total Bilirubin 0.7 mg/dL (0.2-1.3) 04/14/19 09:52 Conjugated Bilirubin 0.0 mg/dL (0.0-0.3) 04/14/19 09:52 Unconjugated Bilirubin 0.5 mg/dL (0.0-1.1) 04/14/19 09:52 Delta Bilirubin 0.2 mg/dL (0.0-0.2) 04/14/19 09:52 AST 50 U/L (17-59) 04/14/19 09:52 ALT 34 U/L (21-72) 04/14/19 09:52 Alkaline Phosphatase 66 U/L (38-126) 04/14/19 09:52 Total Protein 7.3 g/dL (6.3-8.2) 04/14/19 09:52 Albumin 4.4 g/dL (3.5-5.0) 04/14/19 09:52 TSH 1.160 mIU/L (0.465-4.680) 04/14/19 09:52 [facility] <0.2 mmol/L 04/14/19 09:52 Assessment: Bipolar disorder type I, most recent episode manic with psychotic features. Alcohol use disorder, severe. TREATMENT PLAN/RECOMMENDATIONS: Medical Decision making: The patient presented with manic and psychotic symptoms. The patient at high risk to hurt himself if he is not in the inpatient setting. The patients psychiatric symptoms are not stable and he needs further management of psychiatric medications and further planning for discharge. Therefore, inpatient level of care is needed. Continue the patient inpatient for safety. Continue the patient under 15 minutes safe check for safety. Continue treatment of bipolar disorder, and alcohol use disorder. Psych education regarding his psychiatric diagnosis, and treatment option. The patient will also be provided with individual therapy, group therapy, subst ance abuse counseling, gain insight, and coping skills. Consider medical consultation if any acute medical issue arise. Medications: [facility] 150 mg 3 times a day for mood stabilization and bipolar disorder. Trazodone 50 mg at bedtime as needed for insomnia. Vistaril 25 mg 4 times daily as needed for anxiety. Monitor" withdrawal symptoms and when necessary Ativan for severe withdrawal. Vitamin supplement including thiamine and folic acid. Nicotine replacement therapy. Labs: Monitor lithium level Prognosis is guarded, considering the patient's history of poor compliance with treatment, and alcohol use disorder. Prognosis could be fair, contingent on patient has been compliant with his medications and has been followed up closely with outpatient mental health provider after discharge. The patient will be assessed on daily basis for his depression, suicidal ideation, and will be discharged back to his outpatient mental health provider upon stabilization. EXPECTED LENGTH OF STAY: 5-7 days. 04/14/19 15:18
[2019-04-14] MEDS ORDERED: LORazepam 2 MG/ML INJ IV PRN ×4 (17:51)
[2019-04-14] MEDS ORDERED: hydrOXYzine PAMOATE 25 MG CAP PO PRN (17:59)
[2019-04-14] MEDS: LITHIUM CARBONATE 150 MG CAP PO SCH ×4 (18:10→22:17)
[2019-04-14 19:07] LABS: Hemoglobin A1C 5.3 % (4.0-6.0)
[2019-04-14] MEDS: traZODone HCL 50 MG TAB PO PRN (20:43)
[2019-04-15] MEDS: THIAMINE 100 MG TAB PO SCH (09:06)
[2019-04-15] MEDS: NICOTINE 14MG/24HR PATCH TRANSDERM SCH (09:06)
[2019-04-15] MEDS: MULTIVITAMINS, THERA 1 EACH TAB PO SCH (09:07)
[2019-04-15] MEDS: LITHIUM CARBONATE 150 MG CAP PO SCH (09:07)
--- NOTE | 2019-04-15 13:56 | P.PN ---
Progress Note - Text Progress Note Date: 04/15/19 Chief complaint: "I feel better today " Subjective: The patient has been seen today as follow-up, chart reviewed, case discussed with the treatment team. Patient slept about 5-6 hours last night with some interruptions. Patient has been going to selected groups and other unit activities. Patient reports fair appetite. Patient minimizes depression and he denies feeling hopeless or suicidal. The patient is compliant with his medications and denies any adverse reactions. 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 He reports feeling his thoughts are more organized and less distracted today. Patient presents less and Marisela she'll and less circumstantial. He still has flight of ideas and some grandiose ideation. He denies any auditory or visual hallucinations. And he denies any suicidal or homicidal ideation. Patient was told about his plan after discharge to rent a new place and will continue counseling and psychiatric treatment. Discussed to increase lithium to 450 mg twice daily and to obtain lithium level on Sunday morning. Patient denies any alcohol withdrawal symptoms Mental status examination; Appearance: The patient appears stated age, better groomed, average body built, no specific features. Gait/posture: Steady gait, Normal arm swinging: No abnormal movements. Attitude and behavior: More engaged, more cooperative, better eye contact. Motor activity: Normal psychomotor activity Speech: Less pressured Mood: This irritable Affect: And less labile Thought form: Less tangential and less circumstantial Thought content: Still has grandiose delusions, denies suicidal thoughts, denies homicidal thoughts, denies intentions or plans. Perception: Denies any auditory or visual hallucinations Attention: No impairment. Orientation: Patient patient was oriented to time place person and situation. Insight: Patient has limited insight about his psychiatric disorder. Judgment: Patient has limited judgment about has psychiatric treatment. Assessment: Bipolar disorder type I, most recent episode manic with psychotic features. Alcohol use disorder, severe. Plan: Continue inpatient level of care due to continue to have manic symptoms and for further stabilization on medications Continue treatment of bipolar disorder providee psychiatric education regarding his diagnosis Precautions: Continue 15 minutes check for safety. Consider medical consultation if any acute medical issues arise. Provide the patient individual, group therapy, substance use disorder counseling to give better insight and learn coping skills. Continue follow-up with the patient daily to monitor progress of bipolar disorder and alcohol use disorder. Medications: Increase lithium to 450 mg twice daily. Continue trazodone 50 mg at bedtime as needed for insomnia. Continue Vistaril 25 mg 4 times a day as needed for anxiety. Continue monitoring his. Continue vitamin M[place] and nicotine replacement therapy. Labs: Pain lithium level Sunday morning. Discharge patient to OUTPATIENT services upon a stabilization Prognosis: Minimal improvement Expected LOS: 3-5 days
[2019-04-15] MEDS: LITHIUM CARBONATE ER 450 MG TABLET.ER PO SCH (20:32)
[2019-04-15] MEDS: traZODone HCL 50 MG TAB PO PRN (20:33)
[2019-04-16] MEDS: MULTIVITAMINS, THERA 1 EACH TAB PO SCH (08:45)
[2019-04-16] MEDS: THIAMINE 100 MG TAB PO SCH (08:45)
[2019-04-16] MEDS: LITHIUM CARBONATE ER 450 MG TABLET.ER PO SCH ×2 (08:45→21:24)
[2019-04-16] MEDS: NICOTINE 14MG/24HR PATCH TRANSDERM SCH (08:45)
--- NOTE | 2019-04-16 12:16 | P.PN ---
Progress Note - Text Progress Note Date: 04/16/19 Chief complaint: "I feel okay today " Subjective: The patient has been seen today as follow-up, chart reviewed, case discussed with the treatment team. Patient slept about 4 hours last night as per nursing report, even the patient reports more hours. Patient has been going to groups and other unit activities. Patient reports fair appetite. Patient denies feeling depressed, hopeless, or suicidal. The patient is compliant with his medications and denies any adverse reactions. Patient continued to present with some grandiose ideation and inflated self-esteem. He is less tangential and more organized regarding his thoughts and speech. He doesn't present tangential or circumstantial today. The patient denies any auditory or visual hallucinations. Also the patient denies any paranoid ideation. Objective: Vitals has been reviewed. Mental status examination: Appearance: The patient appears stated age, better groomed, average but he built, no specific features. Gait/posture: Steady gait, normal arm swinging, no abnormal movements. Attitude and behavior: Engaged, cooperative, fair eye contact. Motor activity: Normal psychomotor activity Speech: Less pressured. Mood: Less irritable. Affect: Not labile, to some degree constricted. Thought form: Linear, goal-directed. Not circumstantial or tangential. Thought content: Still has current use delusions, denies suicidal thoughts, denies homicidal thoughts, denies intention or plan. Perception: Denies auditory or visual hallucinations. Attention: No impairment. Orientation: Patient is oriented to time, place, person, and situation. Insight: Patient has limited insight about his psychiatric disorder. Judgment: Patient has limited judgment about his psychiatric treatment. Assessment: Bipolar disorder type I, most recent episode manic with psychotic features. Alcohol use disorder severe. Plan: Continue inpatient level of care due to patient continued to have manic symptoms, and for further stabilization on medications. Continue treatment of bipolar disorder provide psychiatric education regarding his diagnosis Precautions: Continue 15 minutes check for safety. Consider medical consultation if any acute medical issues arise. Provide the patient individual, group therapy, substance use disorder counseling to give better insight and learn coping skills. Continue follow-up with the patient daily to monitor progress of manic symptoms. Medications: [place] 450 mg twice daily as a mood stabilizer. Trazodone 50 mg at bedtime as needed for insomnia. Vistaril 25 mg 4 times daily as needed for anxiety. Discontinue alcohol monitoring. Continue vitamin supplement and nicotine replacement therapy. Labs: Obtain lithium level on Sunday. Discharge patient to OUTPATIENT services upon a stabilization Prognosis: Improving Expected LOS: 3-4 days.
[2019-04-17] MEDS: MULTIVITAMINS, THERA 1 EACH TAB PO SCH (08:08)
[2019-04-17] MEDS: LITHIUM CARBONATE ER 450 MG TABLET.ER PO SCH ×2 (08:08→20:42)
[2019-04-17] MEDS: NICOTINE 14MG/24HR PATCH TRANSDERM SCH (08:08)
[2019-04-17] MEDS: THIAMINE 100 MG TAB PO SCH (08:08)
--- NOTE | 2019-04-17 13:54 | P.PN ---
Progress Note - Text Progress Note Date: 04/17/19 Chief complaint: "My mood is better " Subjective: The patient has been seen today as follow-up, chart reviewed, case discussed with the treatment team. Patient slept about 5.5 hours last night as per nursing report, and the patient reports feeling rested and slept well. Patient has been going to groups and other unit activities. Patient reports fair appetite. Patient denies feeling depressed, hopeless, or suicidal. The patient has been compliant with his medications and denies any adverse reactions. 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 Patient is more organized regarding his thoughts and speech. He doesn't present tangential or circumstantial today. The patient denies any auditory or visual hallucinations, or paranoid ideation. Objective: Vitals has been reviewed. Mental status examination: Appearance: The patient appears stated age, fairly groomed, average body built, no specific features. Gait/posture: Steady gait, normal arm swinging, no abnormal movements. Attitude and behavior: Engaged, cooperative, fair eye contact. Motor activity: Normal psychomotor activity Speech: Less pressured. Mood: Not irritable. Affect: Not labile, to some degree constricted. Thought form: Linear, goal-directed. Not circumstantial or tangential. Thought content: Still has some inflated self-esteem and grandiose delusions, denies suicidal thoughts, denies homicidal thoughts, denies intention or plan. Perception: Denies auditory or visual hallucinations. Attention: No impairment. Orientation: Patient is oriented to time, place, person, and situation. Insight: Patient has limited insight about his psychiatric disorder. Judgment: Patient has limited judgment about his psychiatric treatment. Assessment: Bipolar disorder type I, most recent episode manic with psychotic features. Alcohol use disorder severe. Plan: Continue inpatient level of care due to patient continued to have manic symptoms, and for further stabilization on medications. Continue treatment of bipolar disorder provide psychiatric education regarding his diagnosis Precautions: Continue 15 minutes check for safety. Consider medical consultation if any acute medical issues arise. Provide the patient individual, group therapy, substance use disorder counseling to give better insight and learn coping skills. Continue follow-up with the patient daily to monitor progress of manic symptoms. Medications: [place] 450 mg twice daily as a mood stabilizer. Trazodone 50 mg at bedtime as needed for insomnia. Vistaril 25 mg 4 times daily as needed for anxiety. Discontinue alcohol monitoring. Continue vitamin supplement and nicotine replacement therapy. Labs: Obtain lithium level on Sunday. Discharge patient to OUTPATIENT services upon a stabilization Prognosis: Improving Expected LOS: 3-4 days.
[2019-04-17] MEDS: traZODone HCL 50 MG TAB PO PRN (20:43)
[2019-04-18] MEDS: NICOTINE 14MG/24HR PATCH TRANSDERM SCH (08:28)
[2019-04-18] MEDS: MULTIVITAMINS, THERA 1 EACH TAB PO SCH (08:29)
[2019-04-18] MEDS: THIAMINE 100 MG TAB PO SCH (08:29)
[2019-04-18] MEDS: LITHIUM CARBONATE ER 450 MG TABLET.ER PO SCH (08:29)
[2019-04-18] MEDS ORDERED: LITHIUM CARBONATE 150 MG CAP PO STA (13:10)
--- NOTE | 2019-04-18 13:12 | P.PN ---
Progress Note - Text Progress Note Date: 04/18/19 Chief complaint: "I feel very good today" Subjective: The patient has been seen today as follow-up, chart reviewed, case discussed with the treatment team. Patient slept about 8 hours last night, feeling rested and slept well. Patient has been going to some groups. Patient reports good appetite. Patient reports feel stable emotionally and denies feeling depressed, hopeless, or suicidal. The patient has been compliant with his medications and denies any adverse reactions. Patient is less preoccupied inflated self-esteem thoughts which was mainly related to his artistic skills. Patient presents with organized thoughts and speech. The patient denies any auditory or visual hallucinations, or paranoid ideation. Discussed Ste[place] level results with the patient and he agreed to increase Ste[place] aiming to have higher level within therapeutic range. Objective: Vitals has been reviewed. Mental status examination: Appearance: The patient appears stated age, fairly groomed, average body built, no specific features. Gait/posture: Steady gait, normal arm swinging, no abnormal movements. Attitude and behavior: Engaged, cooperative, fair eye contact. Motor activity: Normal psychomotor activity Speech: Not pressured. Mood: "fine" Affect: Not labile, to some degree constricted. Thought form: Linear, goal-directed. Not circumstantial or tangential. Thought content: Still has some inflated self-esteem and grandiose delusions, denies suicidal thoughts, denies homicidal thoughts, denies intention or plan. Perception: Denies auditory or visual hallucinations. Attention: No impairment. Orientation: Patient is oriented to time, place, person, and situation. Insight: Patient has better insight about his psychiatric disorder. Judgment: Patient has better judgment about his psychiatric treatment. Assessment: Bipolar disorder type I, most recent episode manic with psychotic features. Alcohol use disorder severe. Plan: Continue inpatient level of care due to patient continued to have manic symptoms, and for further stabilization on medications. Continue treatment of bipolar disorder provide psychiatric education regarding his diagnosis Precautions: Continue 15 minutes check for safety. Consider medical consultation if any acute medical issues arise. Provide the patient individual, group therapy, substance use disorder counseling to give better insight and learn coping skills. Continue follow-up with the patient daily to monitor progress of manic symptoms. Medications: Increase [place] 600 mg twice daily as a mood stabilizer. Trazodone 50 mg at bedtime as needed for insomnia. Vistaril 25 mg 4 times daily as needed for anxiety. Discontinue alcohol monitoring. Continue vitamin supplement and nicotine replacement therapy. Labs: Steuben level today 0.4. Repeat Ste[place] level on Sunday. Discharge patient to OUTPATIENT services upon a stabilization Prognosis: Improving Expected LOS: 3-4 days.
[2019-04-18 16:46] LABS: Appearance,Urine Clear (Clear); Bilirubin,Urine Negative (Negative); Blood,Urine Negative (Negative); Color,Urine Light Yellow; Glucose,Urine (UA) Negative (Negative); Ketones,Urine Negative (Negative); Leukocyte Esterase,Urine Negative (Negative); Nitrite,Urine Negative (Negative); PH, Urine 7.5 (5.0-8.0); Protein,Urine Negative (Negative); Specific Gravity,Urine 1.011 (1.001-1.035); Urobilinogen,Urine <2.0 mg/dL (<2.0)
[2019-04-18] MEDS: LITHIUM CARBONATE 300 MG CAP PO SCH (20:46)
[2019-04-18] MEDS: traZODone HCL 50 MG TAB PO PRN (20:46)
[2019-04-19] MEDS: THIAMINE 100 MG TAB PO SCH (09:53)
[2019-04-19] MEDS: NICOTINE 14MG/24HR PATCH TRANSDERM SCH (09:53)
[2019-04-19] MEDS: MULTIVITAMINS, THERA 1 EACH TAB PO SCH (09:53)
[2019-04-19] MEDS: LITHIUM CARBONATE 300 MG CAP PO SCH ×2 (09:53→21:03)
--- NOTE | 2019-04-19 12:33 | P.PN ---
Progress Note - Text Progress Note Date: 04/19/19 Interval history: Patient is seen in cross coverage today. He reports that he slept well last night. His mood is feeling level. He talks about the potential living with his grandparents after discharge. He talks about having been on the [facility] program prior to admission. He relates that he was admitted in a manic-type episode. He does not currently verbalize any adverse psychotropic medication side effects. Mental status exam: He is alert and cooperative with the interview he does not verbalize any thoughts of harm to self or others. His mood seems to be stable. He does not show any agitation or evidence of active psychosis. His thought processes organized. Plan: Patient will be maintained on current psychotropic medication regimen. Continue to monitor for any medication side effects and monitor his ongoing response to treatment.
[2019-04-19] MEDS: traZODone HCL 50 MG TAB PO PRN (21:03)
[2019-04-20] MEDS: LITHIUM CARBONATE 300 MG CAP PO SCH ×2 (09:03→21:59)
[2019-04-20] MEDS: THIAMINE 100 MG TAB PO SCH (09:03)
[2019-04-20] MEDS: NICOTINE 14MG/24HR PATCH TRANSDERM SCH (09:03)
[2019-04-20] MEDS: MULTIVITAMINS, THERA 1 EACH TAB PO SCH (09:03)
--- NOTE | 2019-04-20 15:26 | P.PN ---
Progress Note - Text Progress Note Date: 04/20/19 Interval history: Patient is seen in cross coverage again today. He slept around 8 hours last night. He does not voice any adverse psychotropic medication side effects. He does talk about feeling as though he is ready for discharge tomorrow. 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 He also talks about getting into music. Mental status exam: He is alert and cooperative with the interview. His speech is fluent, not rapid or pressured. Thought processes organized. His mood seems to be doing well. He denies any thoughts of harm to self. He does not voice any thoughts of harm to others. He does not show any active evidence of psychosis. There is no agitation present. Plan: Patient will be maintained on current psychotropic medication regimen. We'll continue to monitor for any medication side effects monitor his ongoing response to treatment.
[2019-04-20] MEDS: traZODone HCL 50 MG TAB PO PRN (21:59)
[2019-04-21] MEDS: NICOTINE 14MG/24HR PATCH TRANSDERM SCH (08:54)
[2019-04-21] MEDS: THIAMINE 100 MG TAB PO SCH (08:55)
[2019-04-21] MEDS: MULTIVITAMINS, THERA 1 EACH TAB PO SCH (08:55)
[2019-04-21] MEDS: LITHIUM CARBONATE 300 MG CAP PO SCH ×2 (09:14→21:58)
[2019-04-21 10:55] VITALS: BMI 23.8
--- NOTE | 2019-04-21 15:33 | P.PN ---
Progress Note - Text Progress Note Date: 04/21/19 Clinical Problems: Bipolar disorder type I most recent episode manic with psychotic features, alcohol use disorder severe Interim history: I reviewed the medical record, interviewed the patient and discuss his treatment and treatment plan during team meeting. He is a 28-year-old single male who has history of bipolar illness. He presented to unit voluntarily after having been admitted 3 discharged from [facility] substance abuse treatment program. He presented to unit with bizarre thoughts and speech. He was grandiose about his talents and abilities. Since admission and unit we increase his dose of lithium to 600 mg twice a day. His most recent lithium level was 0.6. He denied problems or concerns other than being in the hospital and wishing to be discharged. He plans to live with his grandparents temporarily after discharge until he can secure his own residence. 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 He plans to produce "10 records" after his discharge from the hospital. He remains on probation for misdemeanor charges of drunk and disorderly. He denied side effects to the increased dose of lithium. He slept 6 hours last night. Mental status exam: He presented as a neatly groomed and casually dressed 28-year-old male who looked younger than his stated age. He made eye contact and attended to interview. He had no distinguishing features or prominent physical abnormalities. He had a blunted but bright facial expression. He was not agitated or restless. He had no abnormal movements. His speech was spontaneous with slight increase in volume and amount. He had no articulation difficulties. His affect was elevated but appropriate. He denied suicidal ideation or wishes. He denied homicidal ideation. He denied experiencing such depressive cognitions as hopelessness, helplessness or worthlessness. He did not express ideas reference, and ideation or magical thinking. He expressed overvalued ideas and grandiosity. His thinking was abstract and associations were organized and coherent. He did not demonstrate clang associations, perseveration or neologisms. He denied hallucinations and did not appear to be responding to internal stimuli. Assessment: He continued to show signs and symptoms of hypomania but the overall severity of his symptoms appeared to have decreased since admission. The lithium level is borderline therapeutic but was obtained only 2 days after the last increase. He had benefit from continued inpatient treatment to further decrease the hypomanic symptoms. Plan: Continue with multimodal therapy, continue suicide precautions. Continue lithium carbonate 600 mg by mouth twice a day and trazodone 50 mg at bedtime when necessary. Obtain a repeat serum lithium level to 3 days. ventilation worker to coordinate outpatient treatment services. Family clinical status response to treatment daily basis.
[2019-04-21] MEDS: traZODone HCL 50 MG TAB PO PRN (21:59)
[2019-04-22 07:11] VITALS: PULSE 64
[2019-04-22] MEDS: NICOTINE 14MG/24HR PATCH TRANSDERM SCH (09:22)
[2019-04-22] MEDS: MULTIVITAMINS, THERA 1 EACH TAB PO SCH (09:23)
[2019-04-22] MEDS: LITHIUM CARBONATE 300 MG CAP PO SCH ×2 (09:23→21:19)
[2019-04-22] MEDS: THIAMINE 100 MG TAB PO SCH (09:23)
--- NOTE | 2019-04-22 13:54 | P.PN ---
Progress Note - Text Progress Note Date: 04/22/19 Clinical Problems: Bipolar disorder type I most recent episode manic with psychotic features, alcohol use disorder severe Interim history: I reviewed the medical record, interviewed the patient and discussed his treatment and treatment plan during team meeting. He insisted on discharge today. He maintained that she could receive no further benefit from remaining in the hospital. He cannot return to the [facility] and does not wish to return to [facility]. He plans to rent a room near the [facility]. He stated that he has $500 from his last services shirt a disability check and will receive another at the end of this week. I spoke with the adoption social worker and clarified that he is under no legal obligation to return to a [facility] or the [facility] His mother remains his guardian and we will would need her consent to a discharge plan. As long as she has no objection to a room and board then we will support his plan. He is sleeping throughout the night and is posed no management problem. He is shown no periods of agitation or aggression. He is active in therapeutic groups and activities. He denied side effects to current dose of lithium. Mental status exam: He presented as a casually groomed 28-year-old male who was pleasant on approach. He made eye contact and attended the interview. He had no distinction features are prominent physical abnormalities. He had a bright facial expression. He was alert and oriented to person, place and time. He was not agitated or restless. His speech was spontaneous with normal rate, rhythm and volume. His affect was bright, stable and appropriate. He denied suicidal ideation or wishes. He denied feeling hopeless, helpless or worthless. He did not express ideas reference, paranoid ideation, magical ideation or delusional thoughts. His thinking was abstract and associations were coherent, logical and goal directed. He did not express clang associations, perseverations, neologisms or blocking. He denied hallucinations and did not appear to be responding to internal stimuli. Assessment: Overall, he is much improved from admission. He shows no overt signs of dione or hypomania. Plan: weld lay out worker to speak with his mother (and guardian) regarding his request to be discharged home and board home. Plan for discharge on 04/23/2019. Continue lithium 600 mg by mouth twice a day. Consider repeat lithium level tomorrow morning. Encouraged continued participation in therapeutic groups and activities. Continue Prozac to precautions. Evaluate clinical status response to treatment daily basis.
--- NOTE | 2019-04-22 14:09 | P.PN ---
Progress Note - Text Progress Note Date: 04/22/19 Clinical Problems: Unspecified bipolar disorder, alcohol use disorder severe, opiate use disorder severe in remission, hepatitis C Interim history: I reviewed the medical record and interviewed the patient. He contacted a telephone interview with [place] [facility]. The social studies department chair contacted that program and confirmed that he has a admission date and 04/25/2019. The patient is excited tended to program and arrange to live with his brother until the admission date. He denied feeling depressed or having thoughts of or suicide. He denied experiencing alcohol withdrawal symptoms. Mental status exam: He presented as a thin tall casually groomed male who was pleasant on approach. He made eye contact and attended to the interview. He had a blunted but bright facial expression. He showed no abnormality of psychomotor behavior. His speech was spontaneous with normal rate, rhythm and volume. His affect was blunted but stable and appropriate. He denied suicidal ideation or wishes. He denies homicidal ideation. He denied feeling hopeless, helpless or worthless. He did not express ideas reference, paranoid ideation, magical ideation or delusions. His thinking was abstract and associations were coherent and logical. He denied hallucinations and did not appear to be responding to internal stimuli. Assessment: Overall he appears much improved from admission. This admission appears to be related to his relapse from alcohol and resulting depression and suicidal ideation. Plan: Continue seeing to proportion until discharge. Encourage continued participation in therapeutic groups and activities. Continue Abilify 10 mg daily, Effexor XR 75 mg daily and Desyrel 75 mg at bedtime when necessary for sleep. Discharge following family meeting.
[2019-04-22] MEDS: traZODone HCL 50 MG TAB PO PRN (21:20)
[2019-04-23 07:21] VITALS: BP 90/52; RESP 16; TEMP 98.2
[2019-04-23] MEDS: LITHIUM CARBONATE 300 MG CAP PO SCH (10:42)
[2019-04-23] MEDS: NICOTINE 14MG/24HR PATCH TRANSDERM SCH (10:42)
[2019-04-23] MEDS: MULTIVITAMINS, THERA 1 EACH TAB PO SCH (10:43)
[2019-04-23] MEDS: THIAMINE 100 MG TAB PO SCH (10:43)
--- NOTE | 2019-04-23 12:39 | P.DS ---
Providers Date of admission: 04/13/19 20:46 Attending physician: Efrain Segovia MD Consults: 04/13/19 20:53 Consult Physician Routine Consulting Provider: Ananya Pettit Consult Reason/Comments: H&P WITH MEDICAL MANAGMENT Do you want consulting provider notified?: Already Contacted Primary care physician: Stated None - Discharge Diagnosis(es) (1) Alcohol use disorder Current Visit: Yes Status: Chronic Priority: Low (2) Bipolar I disorder, recurrent manic episode Current Visit: No Status: Chronic Priority: High (3) Poor compliance with medication Current Visit: Yes Status: Chronic Priority: High (4) Legal problem Current Visit: Yes Status: Chronic Priority: Medium Hospital Course: The patient is a 28-year-old single male transferred from [facility] emergency room for inpatient psychiatric treatment. He was reportedly "dancing naked in a park" and acting bizarre. The police brought him to [facility] on a mental health pickup order for noncompliance with treatment. On presentation to [facility] ER he demonstrated flight of ideas, tangentiality and appeared to be responding to internal stimuli. His blood alcohol level was 65. He is under legal supervision throught Mental Health court for felony charges of resisting arrest and public intoxication. He was court ordered to [facility] for residential substance abuse treatment. However he was administratively discharge from the program. On admission to the unit he demonstrated bizarre thoughts and speech. The admitting physician described him as having grandiose ideas and was marking his forearm with a pen explaining that he was "doing tatoo work". He should have been taking lithium to 600 mg twice a day but his serum lithium level on admission was less than 0.2. We admitted him involuntarily to the inpatient psychiatric unit (he is on a continuing outpatient treatment order). We provided a comprehensive biopsychosocial assessment. The director of medical services identified no acute medical conditions. We restarted lithium 600 mg by mouth twice a day and his serum lithium level was 0.6 on 04/21/2019. He prescribed lorazepam for potential alcohol withdrawal symptoms and treatment of agitation and/or anxiety. He showed no signs and symptoms of alcohol withdrawal. He participated in therapeutic groups and activities. He posed no management problem and had multiple episodes of behavioral dyscontrol. His restlessness, agitation and impulsiveness gradually subsided. At the time of discharge he was neatly groomed and pleasant on approach. He showed no agitation or abnormal movements. His speech was spontaneous with normal rate, rhythm and volume. His affect was stable and appropriate. He denied suicidal ideation or wishes. He denied feeling hopeless, helpless or worthless. He denied ideas reference, paranoid ideation, magical ideation or delusions. His thinking was abstract and associations were coherent, logical and goal directed. He denied hallucinations and did not appear to be responding to internal stimuli. He had a mental health court hearing the day prior to admission where the cathode washer ordered him to return to the [facility]. [facility] will provide outpatient mental health services. Patient Condition at Discharge: Stable Plan - Discharge Summary Discharge Rx Participant: Yes New Discharge Prescriptions: New traZODone HCL [Desyrel] 50 mg PO HS PRN 30 Days #30 tab PRN Reason: Insomnia Nicotine 14Mg/24Hr Patch [Habitrol] 1 patch TRANSDERM DAILY 28 Days #28 patch [place] Carbonate 600 mg PO BID 30 Days #120 cap Discontinued [place] Carbonate 300mg Tablet 600 mg PO BID Discharge Medication List [place] Carbonate 600 mg PO BID 30 Days #120 cap 04/23/19 [Rx] Nicotine 14Mg/24Hr Patch [Habitrol] 1 patch TRANSDERM DAILY 28 Days #28 patch 04/23/19 [Rx] traZODone HCL [Desyrel] 50 mg PO HS PRN 30 Days #30 tab 04/23/19 [Rx] Follow up [facility] Patient Instructions/Handouts: Mood Disorders (DC), Bipolar Disorder (DC) Activity/Diet/Wound Care/Special Instructions: Activity and diet as tolerated. No guns or weapons in the home. No alcohol or street drugs not prescribed by physician. Take all medications as prescribed, and attend all follow up appointments as scheduled. If in need of medication refills, please go to your outpatient psychiatric provider, or to your primary care physician. If in crisis, please call , or go to the nearest ER for an evaluation. Discharge Disposition: OTHER INSTITUTION NOT DEFINED
== END 2019-04-23 13:47 | disposition home or self-care (01) | DRG 885 ==
LOC: 3MHU 20:46
PROVIDERS: ADMIT Psychiatry & Neurology Psychiatry; ATTEND Psychiatry & Neurology Psychiatry
DX: F31.2 Bipolar disorder, current episode manic severe with psychotic features (principal); R45.851 Suicidal ideations; F10.129 Alcohol abuse with intoxication, unspecified; Y90.3 Blood alcohol level of 60-79 mg/100 ml; B19.20 Unspecified viral hepatitis C without hepatic coma; F11.21 Opioid dependence, in remission; F17.200 Nicotine dependence, unspecified, uncomplicated; Z59.0 Homelessness; Z56.0 Unemployment, unspecified; Z65.3 Problems related to other legal circumstances; Z81.4 Family history of other substance abuse and dependence; Z81.8 Family history of other mental and behavioral disorders; Z83.3 Family history of diabetes mellitus; Z91.14 Patient's other noncompliance with medication regimen; Z91.19 Patient's noncompliance with other medical treatment and regimen; Z79.899 Other long term (current) drug therapy
CPT/HCPCS: 80053; 80178; 81003; 82248; 83036; 84443; 85025

== ENCOUNTER 2019-09-23 13:47 | Inpatient (IN) | payer MEDICARE, MEDICAID ==
--- NOTE | 2019-09-23 14:32 | ED ---
Psych HPI - General Source: patient, RN notes reviewed, old records reviewed Mode of arrival: ambulatory <Myra Herring - Last Filed: 09/27/19 15:17> <Thea Osei - Last Filed: 09/28/19 15:47> - General Chief Complaint: Psychiatric Symptoms Stated Complaint: Mental Health Time Seen by Provider: 09/23/19 13:56 - History of Present Illness Initial Comments: Patient is a 29-year-old male with history of bipolar disorder. He presents fr [facility] for abnormal behavior. He is petitioned at this time. Patient reports that he's been mentally unwell. He states that he was up throughout the night painting. Patient reports that he has no physical complaints at this time. Patient reports that he is just very tired because he has not been sleeping well. He also reports that he is hungry because he hasn't eaten much today. He denies any suicidal or homicidal ideation. Patient reports that he was up throughout the night and was reportedly loud He states that he has now kicked out of his living situation. (Myra Herring) - Related Data Home Medications Medication Instructions Recorded Confirmed Levothyroxine Sodium [Synthroid] 50 mcg PO DAILY 09/23/19 09/25/19 [place] Carbonate 1,200 mg PO HS 09/23/19 09/25/19 Previous Rx's Medication Instructions Recorded OLANZapine [ZyPREXA] 5 mg PO DAILY tab 09/25/19 OLANZapine [ZyPREXA] 15 mg PO HS tab 09/25/19 Allergies Allergy/AdvReac Type Severity Reaction Status Date / Time aripiprazole [From Abilify] AdvReac Swelling Verified 09/24/19 10:18 Review of Systems ROS Other: All systems not noted in ROS Statement are negative. <Myra Herring - Last Filed: 09/27/19 15:17> ROS Other: All systems not noted in ROS Statement are negative. <Thea Osei - Last Filed: 09/28/19 15:47> ROS Statement: Those systems with pertinent positive or pertinent negative responses have been documented in the HPI. Past Medical History Past Medical History: No Reported History History of Any Multi-Drug Resistant Organisms: None Reported Past Surgical History: No Surgical Hx Reported Additional Past Surgical History / Comment(s): Fracture in left wrist repaired as a child Past Anesthesia/Blood Transfusion Reactions: No Reported Reaction Past Psychological History: Anxiety, Bipolar Smoking Status: Current every day smoker Past Alcohol Use History: None Reported Past Drug Use History: None Reported - Past Family History Father Additional Family Medical History / Comment(s): Father is alive at age 52 with history of alcohol abuse. Mother History Unknown: Yes Family Medical History: Diabetes Mellitus Additional Family Medical History / Comment(s): Mother is alive at age 51 with history of diabetes. Patient does not have any brothers. Patient has 2 sisters and one has anxiety. <Myra Herring - Last Filed: 09/27/19 15:17> General Exam Limitations: no limitations General appearance: alert, in no apparent distress Head exam: Present: atraumatic, normocephalic, normal inspection Eye exam: Present: normal appearance, PERRL, EOMI. Absent: scleral icterus, conjunctival injection, periorbital swelling ENT exam: Present: normal exam, mucous membranes moist Neck exam: Present: normal inspection. Absent: tenderness, meningismus, lymphadenopathy Respiratory exam: Present: normal lung sounds bilaterally. Absent: respiratory distress, wheezes, rales, rhonchi, stridor Cardiovascular Exam: Present: regular rate, normal rhythm, normal heart sounds. Absent: systolic murmur, diastolic murmur, rubs, gallop, clicks GI/Abdominal exam: Present: soft, normal bowel sounds. Absent: distended, tenderness, guarding, rebound, rigid Extremities exam: Present: normal inspection, full ROM, normal capillary refill. Absent: tenderness, pedal edema, joint swelling, calf tenderness Back exam: Present: normal inspection Neurological exam: Present: alert, oriented X3, CN II-XII intact Psychiatric exam: Present: normal affect, normal mood Skin exam: Present: warm, dry, intact, normal color, other (Patient has blue paint on arms and hair. ). Absent: rash <Myra Herring - Last Filed: 09/27/19 15:17> - General Exam Comments Initial Comments: 29-year-old male. Alert and oriented. (Myra Herring) Course Vital Signs 09/23/19 13:49 Temperature 99.3 F Pulse Rate 128 H Respiratory 18 Rate Blood Pressure 128/78 O2 Sat by Pulse 99 Oximetry Medical Decision Making - Lab Data Result diagrams: 09/23/19 18:51 09/23/19 18:51 <Myra Herring - Last Filed: 09/27/19 15:17> - Lab Data Result diagrams: 09/23/19 18:51 09/23/19 18:51 <Thea Osei - Last Filed: 09/28/19 15:47> - Medical Decision Making 29-year-old male petitioned by [facility] presents today for manic behavior. He is resting comfortably bed and complains of being tired as he is not sleeping well. Patient denies any physical complaints at this time. Medically clear for EPS evaluation. Case Signed to Dr. Osei at shift change. (Myra Herring) I was available for consultation in the emergency department. The history and physical exam were done by the midlevel provider. I was consulted for this patients care. I reviewed the case with the midlevel provider and based on their presentation of the patient, I agree with the assessment, medical decision making and plan of care as documented. Chart was dictated using [employer] dictation software. Attempts were made to correct any dictation errors however some typographical errors may persist. Patient was seen during the Covid-19 pandemic. (Thea Osei) Disposition Is patient prescribed a controlled substance at d/c from ED?: No Time of Disposition: 15:17 <Myra Herring - Last Filed: 09/27/19 15:17> <Thea Osei - Last Filed: 09/28/19 15:47> Clinical Impression: Psychosis Disposition: ADMITTED IP TO THIS HOSP Condition: Stable
[2019-09-23] MEDS ORDERED: LORazepam 1 MG TAB PO PRN (17:41)
[2019-09-23] MEDS ORDERED: MAGNESIUM HYDROXIDE 2,400 MG/10 ML CUP PO PRN (17:41)
[2019-09-23] MEDS ORDERED: ACETAMINOPHEN TAB 325 MG TAB PO PRN (17:41)
[2019-09-23] MEDS ORDERED: MAG HYDROX/AL HYDROX/SIMETH 30 ML CUP PO PRN (17:41)
[2019-09-23] MEDS ORDERED: ZIPRASIDONE 20 MG VIAL IM PRN (17:41)
[2019-09-23 19:19] LABS: ALT 17 U/L (4-49); AST 24 U/L (17-59); African American GFR (CKD) >90 (>60 ml/min/1.73 sqM); Alkaline Phosphatase 55 U/L (38-126); Anion Gap 7 mmol/L; Blood Urea Nitrogen 11 mg/dL (9-20); Calcium 8.6 mg/dL (8.4-10.2); Carbon Dioxide 25 mmol/L (22-30); Chloride 103 mmol/L (98-107); Glucose 108 mg/dL (74-99); Lithium 1.2 mmol/L; Non-African American GFR(CKD) >90 (>60 ml/min/1.73 sqM); Potassium 3.8 mmol/L (3.5-5.1); Sodium 135 mmol/L (137-145); Total Bilirubin 0.6 mg/dL (0.2-1.3); Total Protein 6.5 g/dL (6.3-8.2)
[2019-09-23 19:27] LABS: Basophils % (A) 0 %; Eosinophils % (A) 0 %; HCT 44.6 % (39.0-53.0); HGB 15.2 gm/dL (13.0-17.5); Lymphocytes # (A) 0.3 k/uL (1.0-4.8); Lymphocytes % (A) 2 %; MCH 31.9 pg (25.0-35.0); MCHC 34.1 g/dL (31.0-37.0); MCV 93.6 fL (80.0-100.0); Mean Platelet Volume 8.5; Monocytes # (A) 0.5 k/uL (0-1.0); Monocytes % (A) 4 %; Neutrophils % (A) 94 %; Platelet Count 243 k/uL (150-450); RBC 4.77 m/uL (4.30-5.90); RDW 12.3 % (11.5-15.5); WBC 13.8 k/uL (3.8-10.6)
--- NOTE | 2019-09-23 20:42 | XR ---
EXAMINATION TYPE: XR chest 1V DATE OF EXAM: 09/23/2019 COMPARISON: NONE HISTORY: Lethargy TECHNIQUE: Supine chest film FINDINGS: There is no heart failure nor confluent pneumonic infiltrate. Costophrenic angles are clear . Heart size is normal. Bony thorax appears intact. IMPRESSION: Normal chest.
[2019-09-23 21:14] VITALS: BP 110/53; PULSE 100; RESP 19; TEMP 101.2
--- NOTE | 2019-09-23 21:28 | P.EN ---
Patient was admitted to the psych unit however upon rechecking his vital signs he spiked a fever and seemed to be lethargic after receiving medications due to acute psychosis. Our group by Dr. cardoso who was involved in his evaluation of ulcerative labs were sent chest x-ray were checked concerns were for covid infection due to the fever that the patient had Labs came back showing significant lymphopenia, negative influenza, chest x-ray was read by the radiologist as normal the image showing some haziness bilaterally. Of note chest x-ray could be normal and Covid patient's otherwise patient is not complaining of any coughing or shortness of breath at this time. However his most recent set of vitals showing tachycardia and pulse ox of 92% on room air. I discussed his case with Dr. Mercer raised my concerns regarding Covid infection and the mental health unit. Dr. Mercer recommended that the patient should be monitored on the medical floor until Covid is ruled out. And patient should be kept on one-on-one bedside sitter for safety and that our security in the hospital notified if patient becomes violent due to his acute psychosis. I notified charge nurse and the mental health unit Marlen about the above recommendations. Primary care physician will be verified as RN thinks it is Dr. Walker cardoza. If patient doesn't have a PCP our group sound physicians will be more than happy to take care of the patient on the medical floor. With psych on consult.
[2019-09-24] MEDS ORDERED: LEVOTHYROXINE 50 MCG TAB PO SCH (06:30)
== END 2019-09-23 22:20 | disposition short-term general hospital (02) | DRG 885 ==
LOC: EC 13:47 → 3MHU 17:35
PROVIDERS: ADMIT Psychiatry & Neurology Psychiatry; ATTEND Psychiatry & Neurology Psychiatry
DX: F31.9 Bipolar disorder, unspecified (principal); F17.210 Nicotine dependence, cigarettes, uncomplicated; Z83.3 Family history of diabetes mellitus; F41.9 Anxiety disorder, unspecified; Z81.1 Family history of alcohol abuse and dependence; Z81.8 Family history of other mental and behavioral disorders; R50.9 Fever, unspecified; D72.810 Lymphocytopenia; R00.0 Tachycardia, unspecified
CPT/HCPCS: 71045; 80053; 80178; 82075; 83036; 84145; 85025; 87502; 99285

== ENCOUNTER 2019-09-23 22:28 | Inpatient (IN) | payer MEDICARE, OTHER ==
[2019-09-24] MEDS ORDERED: NALOXONE 0.4 MG/ML 1 ML VIAL IV PRN (00:50)
[2019-09-24] MEDS ORDERED: ACETAMINOPHEN TAB 325 MG TAB PO PRN (00:50)
[2019-09-24] MEDS ORDERED: LORazepam 0.5 MG TAB PO PRN (00:50)
[2019-09-24] MEDS ORDERED: BENZTROPINE MESYLATE 1 MG TAB PO PRN (01:00)
[2019-09-24 01:33] LABS: Basophils % (A) 0 %; Eosinophils # (A) 0.1 k/uL (0-0.7); Eosinophils % (A) 1 %; HCT 46.7 % (39.0-53.0); HGB 15.7 gm/dL (13.0-17.5); Lymphocytes # (A) 0.6 k/uL (1.0-4.8); Lymphocytes % (A) 4 %; MCHC 33.7 g/dL (31.0-37.0); MCV 94.9 fL (80.0-100.0); Mean Platelet Volume 8.1; Monocytes # (A) 0.3 k/uL (0-1.0); Monocytes % (A) 3 %; Neutrophils # (A) 11.7 k/uL (1.3-7.7); Neutrophils % (A) 91 %; Platelet Count 235 k/uL (150-450); RBC 4.92 m/uL (4.30-5.90); RDW 12.4 % (11.5-15.5); WBC 12.8 k/uL (3.8-10.6)
[2019-09-24 01:38] LABS: ALT 17 U/L (4-49); AST 26 U/L (17-59); African American GFR (CKD) >90 (>60 ml/min/1.73 sqM); Albumin 4.2 g/dL (3.5-5.0); Alkaline Phosphatase 49 U/L (38-126); Anion Gap 6 mmol/L; Blood Urea Nitrogen 11 mg/dL (9-20); C Reactive Protein 78.5 mg/L (<10.0); Calcium 8.7 mg/dL (8.4-10.2); Carbon Dioxide 29 mmol/L (22-30); Chloride 101 mmol/L (98-107); Glucose 96 mg/dL (74-99); LDH 454 U/L (313-618); Non-African American GFR(CKD) 84 (>60 ml/min/1.73 sqM); Potassium 4.1 mmol/L (3.5-5.1); Sodium 136 mmol/L (137-145); Total Bilirubin 0.5 mg/dL (0.2-1.3); Total Protein 6.7 g/dL (6.3-8.2)
[2019-09-24 01:42] LABS: D-Dimer 0.61 mg/L FEU (<0.60); INR 1.1 (<1.2); Partial Thromboplastin Time 25.2 sec (22.0-30.0); Prothrombin Time 10.9 sec (9.0-12.0)
--- NOTE | 2019-09-24 03:47 | P.HPIM ---
History of Present Illness H&P Date: 09/24/19 Chief Complaint: fever, possible covid I was wearing full PPE during this encounter including N95 mask, face shield, double gloves, gown, and head cover. patient was unable to provide any meaningful history at this time, and did not say much when interviewed. he follows simple commands but seems to be very tired and not putting much effort. history obtained by discussing his case with RN at mental health unit and reviewing medical records. case also discussed with medical floor RN. I got a sign out form my partner Dr. Munguia on the morning team. 29-year-old male bipolar disorder and alcohol abuse Patient presented to the ER from [facility] due to abnormal behavior was petitioned to stay in the mental health unit patient is very sleepy and tired unable to cooperate with interview he claims that he hasn't slept for couple nights now as he stays up all night keeping himself busy with things. Initially in the ED he reported no suicidal or homicidal ideation however to me when asked about suicidal ideation he said yes but didn't volunteer any details. Patient didn't have any complaints at this time. However on the mental health unit patient became febrile, some initial blood work was done while in the mental health unit came back showing lymphopenia and leukocytosis has influenza testing was negative his leafy him level was within normal limits. Due to the pandemic of Covid this was suspected strongly and patient was tested for Covid however results are pending. Due to risk of infecting other patients and the mental health unit patient was transferred to the medical floor. patient had received medications to help him calm down, and had just received ativan due to agitation. case discussed with Dr. Ruslan BILLS, to advise regarding next site of care , and he recommended that patient to be monitored on the medical floor with bed site sitter for safety until his COVID results comes back. Review of Systems ROS unobtainable: due to mental status Past Medical History Past Medical History: No Reported History History of Any Multi-Drug Resistant Organisms: None Reported Past Surgical History: No Surgical Hx Reported Additional Past Surgical History / Comment(s): Fracture in left wrist repaired as a child Past Anesthesia/Blood Transfusion Reactions: No Reported Reaction Past Psychological History: Anxiety, Bipolar Smoking Status: Current every day smoker Past Alcohol Use History: None Reported Past Drug Use History: None Reported - Past Family History Father Additional Family Medical History / Comment(s): Father is alive at age 52 with history of alcohol abuse. Mother History Unknown: Yes Family Medical History: Diabetes Mellitus Additional Family Medical History / Comment(s): Mother is alive at age 51 with history of diabetes. Patient does not have any brothers. Patient has 2 sisters and one has anxiety. Medications and Allergies Home Medications Medication Instructions Recorded Confirmed Type Benztropine Mesylate [Cogentin] 2 mg PO BID PRN 09/23/19 09/23/19 History Fluphenazine Decanoate 25mg/1ml Oil 25 mg IM Q28D 09/23/19 09/23/19 History Levothyroxine Sodium [Synthroid] 50 mcg PO DAILY 09/23/19 09/23/19 History RX: [place] Carbonate 1,200 mg PO HS 09/23/19 09/23/19 History RX: OLANZapine 20 mg PO HS 09/23/19 09/23/19 History Allergies Allergy/AdvReac Type Severity Reaction Status Date / Time aripiprazole [From Abilify] AdvReac Swelling Verified 09/23/19 16:19 milk AdvReac Nausea & Verified 09/23/19 16:19 Vomiting & Diarrhea Physical Exam patient was not examined by myself, as patient could not cooperate, and to minimize contact and spreading of possible COVID. during this time where we are rationing PPE. as i just came from another acutely sick patient room with possible COVID. I read exam notes from the ER and Dr. Munguia reported her exam to me from earlier during the sign out. which was unremarkable overall, except for patient being sleepy and tired patient was tachycardiac and febrile during his stay in the mental health unit HR 110-120, Temp 102-99.8 F I inspected the patient while he was sleeping comfortably in his room on the medical floor. he has a bed side sitter for safety. no new reported complaints Results CBC & Chem 7: 09/24/19 01:14 09/24/19 01:14 Assessment and Plan Assessment: 29 year old male with behavioral disorder bipolar disorder and alcohol abuse. Patient was petitioned and sent by [facility] to 2 abnormal behavior and acute psychosis over the past few days. However while on the mental health unit patient had fever and tachycardia and upon further evaluation with blood work he had lymphopenia patient was sleepy and tired was unable to provide any meaningful history. He denies any complaints. He reports suicidal ideation. Patient blood work and negative flu test, x-ray findings, was concerning for possible underlying covid infection, and due to concerns of spreading disease to other mental health resident's and staff and the mental health unit patient was transferred to the medical floor for close monitoring until Covid testing results Acute psychosis Bipolar disorder Management per psych Psych consult Suicide ideation, suicide precautions Fever and tachycardia Influenza test negative Tylenol when necessary for fever Supportive care Cardiac telemetry Check Covid Contact and droplet precautions DVT prophylaxis mechanical CODE STATUS: Full code Discussed with: Patient, ER, RN Anticipated length of stay more than [address]: Possible back to mental health unit A total of 60 minutes was spent on the care of this complex patient more than 50% of the time was spent in counseling and care coordination.
[2019-09-24] MEDS: LEVOTHYROXINE 50 MCG TAB PO SCH (06:21)
[2019-09-24 07:33] LABS: Appearance,Urine Clear (Clear); Bilirubin,Urine Negative (Negative); Blood,Urine Negative (Negative); Color,Urine Yellow; Glucose,Urine (UA) Negative (Negative); Ketones,Urine Negative (Negative); Leukocyte Esterase,Urine Negative (Negative); Nitrite,Urine Negative (Negative); Protein,Urine Negative (Negative); Specific Gravity,Urine 1.017 (1.001-1.035); Urobilinogen,Urine <2.0 mg/dL (<2.0)
[2019-09-24 11:22] LABS: Ferritin 138.2 ng/mL (22.0-322.0)
[2019-09-24] MEDS ORDERED: LORazepam 2 MG/ML INJ IV PRN (12:56)
[2019-09-24] MEDS ORDERED: LORazepam 1 MG TAB PO PRN (13:32)
[2019-09-24] MEDS ORDERED: HALOPERIDOL LACTATE 5 MG/ML 1 ML VIAL IM PRN (13:33)
--- NOTE | 2019-09-24 13:47 | P.CN ---
Psychiatric Consult - . Consult date: 09/24/19 Consult:: 09/24/19 13:35 IDENTIFYING DATA: This patient is a 29-year-old male with a history of bipolar disorder and multiple psychiatric hospitalizations. HISTORY OF PRESENT ILLNESS: The patient presented to the hospital yesterday and was brought in by his [facility] digital media associate as patient was having bizarre abnormal behaviors. As per ER report, stated that patient had been up all night painting and lethargic and had been kicked out of the housing situation he was in. Patient has a chronic history of bipolar disorder or mental illness and had been following up with [facility] and just received his Prolixin D injection of 25 mg yesterday. Patient was admitted to the mental unit however on admission patient spiked a fever and was shown to have lymphopenia with elevated white count and was lethargic and was evaluated by internal medicine and transferred to the medical floors as a person of interest for COVID testing. Patient had a negative flu test and the COPVID test had been collected and sent for processing. Chest x-ray was negative and lithium level was 1.2 on admission. Psychiatry was consulted to help manage patient. Patient was seen at the bedside and patient appeared to have difficulties following directions and initially was cooperative however became irritable with the junior technical writer and inappropriate. Patient was also hostile at times. He states that he was picked up by his [facility] worker to have lunch and states that he was then brought into the hospital because "I wasn't acting right". He claims that he "reacts to feelings" and also spoke about "sometimes I just want to be a kid". He also was tangential/circumstantial and rambled about wanting to have a steak and missing his appointments. Patient was intrusive at times and wanted to leave the room. He has poor judgment and insight. At this time patient denies any suicidal or homical ideations, intent or plan. Patient denies any auditory, visual hallucinations and denies any paranoia or delusions. Patient had a flight of ideas. He had low frustration tolerance. Patients admits to using cigarettes and claims to use alcohol in the past however states he had not been drinking. PAST PSYCHIATRIC HISTORY: Bipolar disorder, anxiety. She was previously on lithium 600 mg twice a day and also receiving Prolixin D injections 25 mg and last was given on 09/23/2019. He was last admitted to the mental health unit on 03/2019. Patient currently follows up with [facility] and he denies any history of suicide attempts. PAST MEDICAL HISTORY: denies. ALLERGIES: as per EMR. CHEMICAL DEPENDENCY HISTORY: as per HPI. FAMILY PSYCHIATRIC/SUBSTANCE USE HISTORY: denies SOCIAL HISTORY: Patient was uncooperative when asked about his social history.. MENTAL STATUS EXAM: General Appearance: Patient appears to be stated age is alert, guarded and hostile. Patient appears to have poor hygiene and grooming wearing hospital gown with fair eye contact. Behavior: Patient is calmly lying in bed without any agitated behavior. Irritable at times. Speech: Patient's speech is fluent and nonpressured. Mood/Affect: Patient reports their mood is "just fine", affect is incongruent and irritable. Suicidality/Homicidality: Patient denies having any suicidal or homicidal ideation intent or plan. Perceptions: Patient denies any visual hallucinations and denies any auditory hallucinations Though content/process: Patient was bizarre at times, illogical and tangent ial/circumstantial. Memory and concentration: AOX3, grossly intact for the purposes of this session. Can spell "WORLD" backwards Judgment and insight: poor/impulsive IMPRESSIONS: Bipolar disorder, currently manic episode History of alcohol abuse Nicotine dependence PLAN: -Patient DOES NOT have decision making capacity at this time and is unable to reason through and communicate/appreciate the risks, benefits and alternatives to treatment. -Would recommend the following medication changes/additions: Changed the Zyprexa to 15 mg daily at bedtime +5 mg daily for mood stabilization/psychosis. Continue with lithium 1200 mg daily at bedtime for mood stabilization. Ativan when necessary for anxiety and Haldol when necessary for agitation/acute psychosis. I added melatonin 5 mg for sleep. -Continue 1:1 sitter for safety -Cannot leave AMA at this time. Patient will need a petition and certification if attempting to leave AMA. -Will continue to follow along as patient is currently awaiting COVID results as he is a high suspicion for infection at this time. When medically stable and infection is ruled out, patient is eligible for transfer to a psych bed when available. -Please contact with any questions. 09/24/19 13:46 09/24/19 13:47
[2019-09-24] MEDS ORDERED: HALOPERIDOL LACTATE 5 MG/ML 1 ML VIAL IM ONE (14:00)
[2019-09-24] MEDS: OLANZapine 5 MG TAB PO SCH (14:38)
[2019-09-24 16:12] LABS: Urine Alcohol Negative (Negative); Urine Barbiturate Negative (Negative); Urine Cocaine Negative (Negative); Urine Methadone Negative (Negative); Urine Opiates Negative (Negative); Urine Phencyclidine Negative (Negative)
--- NOTE | 2019-09-24 20:04 | P.PN ---
Subjective Progress Note Date: 09/24/19 (delayed charting seen at 1030) Principal diagnosis: fevers Patient is a 29-year-old male with a past medical history of hypothyroidism and bipolar disorder who initially presented with signs of psychosis to the mental health unit, he was noted have a fever and there was concern for possible Covid 19 infection and he was subsequently transferred to the general medical floor. He underwent a chest x-ray which showed no acute process, CBC shows leukocytosis with lymphopenia, d-dimer mildly elevated, CRP mildly elevated, and pro-calcitonin indeterminate 1.16. Urine drug screen and urinalysis negative. Patient has had stable vital signs since admission. Of note he had a Mr. mathews called him him on the afternoon of 09/23 and received IM Haldol and Ativan. Patient seen and examined at bedside. He complains of feeling tired. Denies chest pain, shortness breath, nausea, vomiting, or fevers. He tells me he does not want to talk. He denies diarrhea. Objective - Vital Signs Vital signs: Vital Signs Temp 99.0 F 09/24/19 19:05 Pulse 73 09/24/19 19:05 Resp 18 09/24/19 19:05 BP 104/62 09/24/19 19:05 Pulse Ox 96 09/24/19 19:05 Intake & Output 09/24/19 09/24/19 09/25/19 06:59 18:59 06:59 Output Total 900 Balance -900 Weight 72.575 kg Output: Urine 900 Other: Voiding Method Toilet Urinal # Voids 1 1 - Exam General: non toxic, no distress, appears at stated age Derm: warm, dry Head: atraumatic, normocephalic, symmetric Eyes: EOMI, no lid lag, anicteric sclera Mouth: no lip lesion, mucus membranes moist Cardiovascular: S1S2 reg, no murmur, positive posterior tibial pulse bilateral, Lungs: CTA bilateral, no rhonchi, no rales , no accessory muscle use Abdominal: soft, nontender to palpation, no guarding, no appreciable organomegaly Ext: no gross muscle atrophy, no edema, no contractures Neuro: CN II-XI grossly intact, no focal neuro deficits Psych: Alert, oriented, appropriate affect, standoffish - Labs CBC & Chem 7: 09/24/19 01:14 09/24/19 01:14 Labs: Abnormal Lab Results - Last 24 Hours (Table) 09/24/19 09/24/19 09/24/19 Range/Units 01:14 01:14 01:14 WBC 12.8 H (3.8-10.6) k/uL Neutrophils # 11.7 H (1.3-7.7) k/uL Lymphocytes # 0.6 L (1.0-4.8) k/uL D-Dimer 0.61 H (<0.60) mg/L FEU Sodium 136 L (137-145) mmol/L C-Reactive Protein 78.5 H (<10.0) mg/L Procalcitonin (0.02-0.09) ng/mL 09/24/19 Range/Units 01:14 WBC (3.8-10.6) k/uL Neutrophils # (1.3-7.7) k/uL Lymphocytes # (1.0-4.8) k/uL D-Dimer (<0.60) mg/L FEU Sodium (137-145) mmol/L C-Reactive Protein (<10.0) mg/L Procalcitonin 1.16 H (0.02-0.09) ng/mL Assessment and Plan Assessment: Fever with concern for developing infection -Urinalysis negative, chest x-ray negative, influenza negative -Covid 19 testing pending -Procalcitonin indeterminate as a slightly less than 2 but elevated -Continue to monitor fever profile, follow CBC and CMP in a.m. -Follow oxygen needs Acute psychosis with bipolar depression -Psych recommendations appreciated, patient cannot leave AMA at this time because he does not have decision-making capacity -Zyprexa increased, lithium continued, Ativan and Haldol for agitation and psychosis. Hypothyroidism -Synthroid -Outpatient follow-up DVT prophylaxis: SCDs Discussed with: Patient, nursing Anticipated discharge: Unknown patient is medically stable at this time, but unable to return to psych with COVID testing pending due to isolation needs and is not stable to return to the community due to psychosis and risk of injury to self and others Anticipated discharge place: [facility]HU A total of 35 minutes was spent on the care of this complex patient more than 50% of the time was spent in counseling and care coordination.
[2019-09-24] MEDS ORDERED: LITHIUM CARBONATE 300 MG CAP PO SCH (21:00)
[2019-09-24] MEDS ORDERED: OLANZapine 10 MG TAB PO SCH (21:00)
[2019-09-24] MEDS ORDERED: MELATONIN 3 MG TABLET PO SCH (21:00)
[2019-09-24] MEDS ORDERED: OLANZapine 5 MG TAB PO SCH (21:00)
[2019-09-25] MEDS ORDERED: ONDANSETRON 4 MG/2 ML VIAL IVP STA (04:21)
[2019-09-25] MEDS ORDERED: ONDANSETRON 4 MG/2 ML VIAL ONE (04:49)
[2019-09-25] MEDS: LEVOTHYROXINE 50 MCG TAB PO SCH (04:53)
[2019-09-25] MEDS: OLANZapine 5 MG TAB PO SCH (08:55)
[2019-09-25 09:03] VITALS: BP 104/66; PULSE 85; RESP 16; TEMP 97.9
[2019-09-25 09:14] LABS: ALT 19 U/L (4-49); AST 33 U/L (17-59); African American GFR (CKD) >90 (>60 ml/min/1.73 sqM); Albumin 3.6 g/dL (3.5-5.0); Alkaline Phosphatase 58 U/L (38-126); Anion Gap 5 mmol/L; Blood Urea Nitrogen 12 mg/dL (9-20); Calcium 8.3 mg/dL (8.4-10.2); Carbon Dioxide 26 mmol/L (22-30); Chloride 107 mmol/L (98-107); Glucose 108 mg/dL (74-99); Non-African American GFR(CKD) >90 (>60 ml/min/1.73 sqM); Sodium 138 mmol/L (137-145); Total Bilirubin 0.2 mg/dL (0.2-1.3); Total Protein 6.2 g/dL (6.3-8.2)
[2019-09-25 09:17] LABS: Basophils % (A) 0 %; Eosinophils # (A) 0.2 k/uL (0-0.7); Eosinophils % (A) 2 %; HCT 45.9 % (39.0-53.0); HGB 14.7 gm/dL (13.0-17.5); Lymphocytes % (A) 9 %; MCH 30.6 pg (25.0-35.0); MCHC 32.1 g/dL (31.0-37.0); MCV 95.5 fL (80.0-100.0); Mean Platelet Volume 8.3; Monocytes # (A) 0.6 k/uL (0-1.0); Monocytes % (A) 5 %; Neutrophils # (A) 9.1 k/uL (1.3-7.7); Neutrophils % (A) 83 %; Platelet Count 189 k/uL (150-450); RBC 4.81 m/uL (4.30-5.90); RDW 12.5 % (11.5-15.5)
--- NOTE | 2019-09-25 10:25 | P.DS ---
Providers Date of admission: 09/24/19 00:07 Expected date of discharge: 09/25/19 Attending physician: Jamey Workman MD Consults: 09/24/19 00:52 Consult Physician Routine Consulting Provider: Drew Severino Consult Reason/Comments: acute psychosis Do you want consulting provider notified?: Yes Primary care physician: Stated None Hospital Course: Discharge Diagnosis: [place], resolved Leukocytosis Acute psychosis bipolar depression Hypothyroidism Hospital Course: Patient is a 29-year-old male with a past medical history of hypothyroidism and bipolar disorder who initially presented with signs of psychosis to the mental health unit, he was noted have a fever and there was concern for possible Covid 19 infection and he was subsequently transferred to the general medical floor. He underwent a chest x-ray which showed no acute process, CBC shows leukocytosis with lymphopenia, d-dimer mildly elevated, CRP mildly elevated, and pro-calcitonin indeterminate 1.16. Urine drug screen and urinalysis negative. Patient has had stable vital signs since admission. Of note he had a Mr. mathews called him him on the afternoon of 09/23 and received IM Haldol and Ativan. His white blood cell count continued to improve. The remainder of his labs were normal. His Covid -19 came back normal. He was determined medically stable for discharge back to the mental health unit. He had been seen by psychiatry who deemed that he was not competent to make his own decisions and would need to return to mental health unit. Patient seen and examined at bedside. Patient denies any cough, shortness of breath, or chest pain. Vital signs reviewed and stable. General: non toxic, no distress, appears at stated age Derm: warm, dry Head: atraumatic, normocephalic, symmetric Eyes: EOMI, no lid lag, anicteric sclera Mouth: no lip lesion, mucus membranes moist Cardiovascular: S1S2 reg, no murmur, positive posterior tibial pulse bilateral, Lungs: CTA bilateral, no rhonchi, no rales , no accessory muscle use Abdominal: soft, nontender to palpation, no guarding, no appreciable organomegaly Psych: awake, not oriented, difficulty answering questions A total of 25 minutes of time were spent preparing this complex discharge summary . Patient Condition at Discharge: Stable Plan - Discharge Summary Discharge Rx Participant: No New Discharge Prescriptions: New OLANZapine [ZyPREXA] 15 mg PO HS tab OLANZapine [ZyPREXA] 5 mg PO DAILY tab Continue [place] Carbonate 1,200 mg PO HS Levothyroxine Sodium [Synthroid] 50 mcg PO DAILY Discontinued Fluphenazine Decanoate 25mg/1ml Oil 25 mg IM Q28D Benztropine Mesylate [Cogentin] 2 mg PO BID PRN PRN Reason: Anxiety OLANZapine 20 mg PO HS Discharge Medication List Levothyroxine Sodium [Synthroid] 50 mcg PO DAILY 09/23/19 [History] [place] 1,200 mg PO HS 09/23/19 [History] OLANZapine [ZyPREXA] 5 mg PO DAILY tab 09/25/19 [Rx] OLANZapine [ZyPREXA] 15 mg PO HS tab 09/25/19 [Rx] Activity/Diet/Wound Care/Special Instructions: Activity: as tolerated Diet: regular Discharge Disposition: TRANSFER TO PSYCH HOSP/UNIT
== END 2019-09-25 12:32 | DRG 864 ==
LOC: 4SSUR 09-24 00:07
PROVIDERS: ADMIT Internal Medicine; ATTEND Internal Medicine
DX: R50.9 Fever, unspecified (principal); F31.2 Bipolar disorder, current episode manic severe with psychotic features; R45.851 Suicidal ideations; F31.30 Bipolar disorder, current episode depressed, mild or moderate severity, unspecified; F10.10 Alcohol abuse, uncomplicated; D72.810 Lymphocytopenia; D72.829 Elevated white blood cell count, unspecified; F41.9 Anxiety disorder, unspecified; F17.210 Nicotine dependence, cigarettes, uncomplicated; R00.0 Tachycardia, unspecified; E03.9 Hypothyroidism, unspecified; R53.83 Other fatigue; Z20.828 Contact with and (suspected) exposure to other viral communicable diseases; Z79.899 Other long term (current) drug therapy; Z79.890 Hormone replacement therapy; Z98.890 Other specified postprocedural states; Z87.81 Personal history of (healed) traumatic fracture; Z88.8 Allergy status to other drugs, medicaments and biological substances; Z91.011 Allergy to milk products; Z81.1 Family history of alcohol abuse and dependence; Z83.3 Family history of diabetes mellitus; Z81.8 Family history of other mental and behavioral disorders
CPT/HCPCS: 80053; 80306; 81003; 82728; 83615; 83880; 84145; 84484; 85025; 85379; 85610; 85730; 86140; 87040; 93005; 94760

== ENCOUNTER 2019-09-25 12:01 | Inpatient (IN) | payer MEDICARE, MEDICAID ==
[2019-09-25] MEDS ORDERED: MAG HYDROX/AL HYDROX/SIMETH 30 ML CUP PO PRN (12:12)
[2019-09-25] MEDS ORDERED: MAGNESIUM HYDROXIDE 2,400 MG/10 ML CUP PO PRN (12:12)
[2019-09-25] MEDS ORDERED: HALOPERIDOL LACTATE 5 MG/ML 1 ML VIAL IM PRN (12:18)
[2019-09-25] MEDS ORDERED: LORazepam 1 MG TAB PO PRN (12:19)
[2019-09-25] MEDS ORDERED: BENZTROPINE MESYLATE 1 MG TAB PO PRN (13:10)
[2019-09-25] MEDS: LITHIUM CARBONATE 300 MG CAP PO SCH (20:52)
[2019-09-25] MEDS: MELATONIN 3 MG TABLET PO SCH (20:53)
[2019-09-25] MEDS: OLANZapine 5 MG TAB PO SCH (20:53)
[2019-09-26] MEDS: LEVOTHYROXINE 50 MCG TAB PO SCH (05:17)
[2019-09-26 07:54] LABS: Basophils % (A) 0 %; Eosinophils # (A) 0.2 k/uL (0-0.7); Eosinophils % (A) 3 %; HCT 41.9 % (39.0-53.0); HGB 13.8 gm/dL (13.0-17.5); Lymphocytes # (A) 1.8 k/uL (1.0-4.8); Lymphocytes % (A) 24 %; MCH 31.2 pg (25.0-35.0); MCV 94.5 fL (80.0-100.0); Mean Platelet Volume 7.9; Monocytes # (A) 0.4 k/uL (0-1.0); Monocytes % (A) 6 %; Neutrophils # (A) 4.9 k/uL (1.3-7.7); Neutrophils % (A) 64 %; Platelet Count 190 k/uL (150-450); RBC 4.43 m/uL (4.30-5.90); RDW 12.3 % (11.5-15.5); WBC 7.7 k/uL (3.8-10.6)
[2019-09-26 08:07] LABS: ALT 21 U/L (4-49); AST 30 U/L (17-59); African American GFR (CKD) >90 (>60 ml/min/1.73 sqM); Albumin 3.5 g/dL (3.5-5.0); Alkaline Phosphatase 50 U/L (38-126); Anion Gap 4 mmol/L; Blood Urea Nitrogen 9 mg/dL (9-20); Calcium 8.5 mg/dL (8.4-10.2); Carbon Dioxide 28 mmol/L (22-30); Chloride 107 mmol/L (98-107); Cholesterol 90 mg/dL (<200); Glucose 99 mg/dL (74-99); HDL Cholesterol 29 mg/dL (40-60); LDL Cholesterol,Calculated 37 mg/dL (0-99); Non-African American GFR(CKD) >90 (>60 ml/min/1.73 sqM); Potassium 4.5 mmol/L (3.5-5.1); Sodium 139 mmol/L (137-145); Total Bilirubin 0.2 mg/dL (0.2-1.3); Triglycerides 118 mg/dL (<150)
[2019-09-26] MEDS: OLANZapine 5 MG TAB PO SCH ×2 (08:16→20:21)
[2019-09-26 08:47] LABS: Lithium 0.7 mmol/L
--- NOTE | 2019-09-26 10:20 | P.HP ---
Psychiatric H&P - . H&P Date: 09/26/19 History & Physical: Allergies Allergy/AdvReac Type Severity Reaction Status Date / Time aripiprazole From Abdoulayejefry AdvReac Swelling Verified 09/24/19 10:18 Vital Signs Temp 97.8 F 09/26/19 05:14 Pulse 94 09/26/19 05:14 Resp 14 09/26/19 05:14 BP 123/63 09/26/19 05:14 Pulse Ox 97 09/25/19 13:00 Intake & Output 09/25/19 09/26/19 09/26/19 18:59 06:59 18:59 Weight 97.2 kg Laboratory Last Values WBC 7.7 k/uL (3.8-10.6) 09/26/19 07:25 RBC 4.43 m/uL (4.30-5.90) 09/26/19 07:25 Hgb 13.8 gm/dL (13.0-17.5) 09/26/19 07:25 Hct 41.9 % (39.0-53.0) 09/26/19 07:25 MCV 94.5 fL (80.0-100.0) 09/26/19 07:25 MCH 31.2 pg (25.0-35.0) 09/26/19 07:25 MCHC 33.0 g/dL (31.0-37.0) 09/26/19 07:25 RDW 12.3 % (11.5-15.5) 09/26/19 07:25 Plt Count 190 k/uL (150-450) 09/26/19 07:25 Neutrophils % 64 % 09/26/19 07:25 Lymphocytes % 24 % 09/26/19 07:25 Monocytes % 6 % 09/26/19 07:25 Eosinophils % 3 % 09/26/19 07:25 Basophils % 0 % 09/26/19 07:25 Neutrophils # 4.9 k/uL (1.3-7.7) 09/26/19 07:25 Lymphocytes # 1.8 k/uL (1.0-4.8) 09/26/19 07:25 Monocytes # 0.4 k/uL (0-1.0) 09/26/19 07:25 Eosinophils # 0.2 k/uL (0-0.7) 09/26/19 07:25 Basophils # 0.0 k/uL (0-0.2) 09/26/19 07:25 Sodium 139 mmol/L (137-145) 09/26/19 07:25 Potassium 4.5 mmol/L (3.5-5.1) 09/26/19 07:25 Chloride 107 mmol/L (98-107) 09/26/19 07:25 Carbon Dioxide 28 mmol/L (22-30) 09/26/19 07:25 Anion Gap 4 mmol/L 09/26/19 07:25 BUN 9 mg/dL (9-20) 09/26/19 07:25 Creatinine 0.84 mg/dL (0.66-1.25) 09/26/19 07:25 Est GFR (CKD-EPI)AfAm >90 (>60 ml/min/1.73 sqM) 09/26/19 07:25 Est GFR (CKD-EPI)NonAf >90 (>60 ml/min/1.73 sqM) 09/26/19 07:25 Glucose 99 mg/dL (74-99) 09/26/19 07:25 Calcium 8.5 mg/dL (8.4-10.2) 09/26/19 07:25 Total Bilirubin 0.2 mg/dL (0.2-1.3) 09/26/19 07:25 AST 30 U/L (17-59) 09/26/19 07:25 ALT 21 U/L (4-49) 09/26/19 07:25 Alkaline Phosphatase 50 U/L (38-126) 09/26/19 07:25 Total Protein 6.0 g/dL (6.3-8.2) L 09/26/19 07:25 Albumin 3.5 g/dL (3.5-5.0) 09/26/19 07:25 Triglycerides 118 mg/dL (<150) 09/26/19 07:25 Cholesterol 90 mg/dL (<200) 09/26/19 07:25 LDL Cholesterol, Calc 37 mg/dL (0-99) 09/26/19 07:25 HDL Cholesterol 29 mg/dL (40-60) L 09/26/19 07:25 TSH 2.650 mIU/L (0.465-4.680) 04/03/20 07:25 [place] 0.7 mmol/L 09/26/19 07:25 09/26/19 10:15 IDENTIFYING DATA: This patient is a 29-year-old male with a history of bipolar disorder and multiple psychiatric hospitalizations. HISTORY OF PRESENT ILLNESS: The patient presented to the hospital initially and was brought in by his [facility] master rigger as patient was having bizarre abnormal behaviors. ER report, stated that patient had been up all night painting and lethargic and had been kicked out of the housing situation he was in. Patient has a chronic history of bipolar disorder or mental illness and had been following up with [facility] and just received his Prolixin D injection of 25 mg prior to coming to the hospital. Patient was admitted to the mental unit initially however on admission patient spiked a fever and was shown to have lymphopenia with elevated white count and was lethargic and was evaluated by internal medicine and transferred to the medical floors as a person of interest for COVID testing. Patient had a negative flu test and the COVID test had been collected and sent for processing. Chest x-ray was negative and lithium level was 1.2 on admission. Patient was seen on the medical floors at the bedside and patient appeared to have difficulties following directions and initially was cooperative however became irritable with the marketing writer and inappropriate and was also hostile at times. He also was tangential/circumstantial and rambled about wanting to have a steak and missing his appointments. Patient was intrusive at times and wanted to leave the room and had poor judgment and insight. Patient tested negative for COVID and subsequently transferred back to the mental health unit. Patient was seen earlier this morning and was mildly more directable and more appropriate during conversation. Patient continues to have flight of ideas and rambles at times. Patient spoke about the fears of COVID and stated "I wanted to be deal times again". Patient was less argumentative today and less intrusive. Patient is agreeable to continue on with his medications. He states that he slept better last night. At this time patient denies any suicidal or homical ideations, intent or plan. Patient denies any auditory, visual hallucinations and denies any paranoia or delusions. Patients admits to using cigarettes and claims to use alcohol in the past however states he had not been drinking. PAST PSYCHIATRIC HISTORY: Bipolar disorder, anxiety. She was previously on lithium 600 mg twice a day and also receiving Prolixin D injections 25 mg and last was given on 09/23/2019. He was last admitted to the mental health unit on 03/2019. Patient currently follows up with [facility] and he denies any history of suicide attempts. PAST MEDICAL HISTORY: Hypothyroidism ALLERGIES: as per EMR. CHEMICAL DEPENDENCY HISTORY: as per HPI. FAMILY PSYCHIATRIC/SUBSTANCE USE HISTORY: denies SOCIAL HISTORY: Patient currently lives in an apartment with other people and states that he is currently unemployed and collecting Social Security. He is currently not and does not have any kids. MENTAL STATUS EXAM: General Appearance: Patient appears to be stated age is alert, less guarded today. Patient appears to have poor hygiene and grooming wearing street clothing with fair eye contact. Behavior: Patient is calmly lying in bed without any agitated behavior. Less irritable and intrusive. Speech: Patient's speech is fluent and nonpressured. Mood/Affect: Patient reports their mood is "ok", affect is congruent. Suicidality/Homicidality: Patient denies having any suicidal or homicidal ideation intent or plan. Perceptions: Patient denies any visual hallucinations and denies any auditory hallucinations Though content/process: Patient rambles and was tangential/circumstantial. Memory and concentration: AOX3, grossly intact for the purposes of this session. Can spell "WORLD" backwards Judgment and insight: poor/impulsive, mildly improving STRENGTHS/WEAKNESSES: strength is that patient is resilient. Weakness is that patient has poor judgment and is impulsive INTELLECT: average IMPRESSIONS: Bipolar disorder, currently manic episode History of alcohol abuse Nicotine dependence PLAN: -Patient is admitted under involuntary status to MHU for stabilization of psychiatric symptoms and safety. Patient was currently on a deferral and will have full court hearing next week. -Medications : Will start patient on lithium 1200 mg daily at bedtime for mood stabilization, Zyprexa 15 mg daily at bedtime +5 mg daily for mood stabilization/psychosis. Continue with melatonin 6 mg daily at bedtime for sleep. -Ativan and Haldol PRN for agitation/aggression -Patient's lithium level was 0.7 on admission. -Patient was informed of the risks, benefits and side effects of the medication and patient verbally consented to taking the medications. Patient signed med consent form and was placed in chart. -Internal Medicine consult to perform medical evaluation and physical. -NRT - nicotine gum. -SW on board for discharge planning. Encourage patient to participate in groups to work on coping skills. Patient will be having full court hearing next week. 09/26/19 10:26
[2019-09-26] MEDS ORDERED: NICOTINE POLACRILEX 2 MG GUM BUCCAL PRN (10:34)
[2019-09-26] MEDS: LITHIUM CARBONATE 300 MG CAP PO SCH (20:21)
[2019-09-26] MEDS: MELATONIN 3 MG TABLET PO SCH (20:21)
--- NOTE | 2019-09-26 22:23 | P.HPMEDMHU ---
History of Present Illness H&P Date: 09/26/19 (delayed charting seen at 1345) Chief Complaint: hallucinations Patient is a 29-year-old male with a past medical history of hypothyroidism, bipolar disorder, and tobacco abuse who was recently on the medical unit secondary to fevers and code 19 was ruled out. He had initially presented secondary to psychosis and was subsequently discharged to the mental health unit. Patient seen and examined. He is much more awake and alert today. He is asking appropriate questions. He denies any cough, cold, fever, flu, nausea, vomiting, or diarrhea. He is confused as to where the last 2 days when. He is determined to get his life together upon discharge. Review of Systems Pertinent positives and negatives as discussed in HPI, a complete review of systems was performed and all other systems are negative. Past Medical History Past Medical History: Thyroid Disorder History of Any Multi-Drug Resistant Organisms: None Reported Past Surgical History: No Surgical Hx Reported Additional Past Surgical History / Comment(s): Fracture in left wrist repaired as a child Past Anesthesia/Blood Transfusion Reactions: No Reported Reaction Past Psychological History: Anxiety, Bipolar Smoking Status: Current every day smoker Past Alcohol Use History: None Reported Past Drug Use History: None Reported - Past Family History Father Additional Family Medical History / Comment(s): Father is alive at age 52 with history of alcohol abuse. Mother History Unknown: Yes Family Medical History: Diabetes Mellitus Additional Family Medical History / Comment(s): Mother is alive at age 51 with history of diabetes. Patient does not have any brothers. Patient has 2 sisters and one has anxiety. Medications and Allergies Home Medications Medication Instructions Recorded Confirmed Type Levothyroxine Sodium [Synthroid] 50 mcg PO DAILY 09/23/19 09/25/19 History [place] Carbonate 1,200 mg PO HS 09/23/19 09/25/19 History OLANZapine [ZyPREXA] 5 mg PO DAILY tab 09/25/19 09/25/19 Rx OLANZapine [ZyPREXA] 15 mg PO HS tab 09/25/19 09/25/19 Rx Allergies Allergy/AdvReac Type Severity Reaction Status Date / Time aripiprazole [From Abilify] AdvReac Swelling Verified 09/24/19 10:18 Physical Exam Osteopathic Statement: *. No significant issues noted on an osteopathic structural exam other than those noted in the History and Physical/Consult. Vitals: Vital Signs Temp Pulse Resp BP 09/26/19 19:11 98.4 F 09/26/19 05:14 97.8 F 94 14 123/63 General: non toxic, no distress, appears at stated age, normal weight Derm: no unusual rashes/lesions no unusual ecchymoses, warm, dry Head: atraumatic, normocephalic, symmetric Eyes: EOMI, no lid lag, anicteric sclera, pupils equal round reactive to light ENT: Nose and ears atraumatic, no thrush, no pharyngeal erythema Neck: No thyromegaly, no cervical lymphadenopathy, trachea midline, supple Mouth: no lip lesion, mucus membranes moist Cardiovascular: S1S2 reg, no murmur, positive posterior tibial pulse bilateral, no edema, capillary refill less than 2 seconds Lungs: CTA bilateral, no rhonchi, no rales , no accessory muscle use Abdominal: soft, nontender to palpation, no guarding, no appreciable organomegaly, normal bowel sounds Ext: no gross muscle atrophy, muscle strength 5 out of 5 in all 4 extremities grossly, no contractures, Neuro: CN II-XI grossly intact, light touch intact all 4 extremities, finger to nose within normal limits, Psych: Alert, oriented, appropriate affect Cranial Nerve Examination - Cranial Nerves Cranial Nerve II- Optic: Intact Cranial Nerve III- Oculomotor: Intact Cranial Nerve IV- Trochlear: Intact Cranial Nerve V- Trigeminal: Intact Cranial Nerve - Abducens: Intact Cranial Nerve VII- Facial: Intact Cranial Nerve VIII- Auditory: Intact Cranial Nerve IX- Glossopharyngeal: Intact Cranial Nerve X- Vagus: Intact Cranial Nerve XI- Accessory: Intact Cranial Nerve XII- Hypoglossal: Intact Results CBC & Chem 7: 09/26/19 07:25 09/26/19 07:25 Labs: Abnormal Lab Results - Last 24 Hours (Table) 09/26/19 Range/Units 07:25 Total Protein 6.0 L (6.3-8.2) g/dL HDL Cholesterol 29 L (40-60) mg/dL Assessment and Plan Assessment: Hypothyroidism -Synthroid Tobacco abuse -Nicotine replacement -Cessation Psychosis -Your psych management Thank you for allowing us to participate in the care of this pleasant patient. Do not hesitate to contact us with questions. Someone can be reached from the [facility] hospitalist group all hours of the day at [phone] or via perfect serve.
[2019-09-27] MEDS: LEVOTHYROXINE 50 MCG TAB PO SCH (05:55)
[2019-09-27] MEDS: OLANZapine 5 MG TAB PO SCH ×2 (08:23→21:13)
--- NOTE | 2019-09-27 11:45 | P.PN ---
Progress Note - Text Progress Note Date: 09/27/19 Interval history: Patient is seen in cross coverage today. He is seen in his room. He reports that sleep and appetite seem to be doing fine. He does not seem to voice any adverse psychotropic medication side effects. He does seem to describe feeling better. Mental status exam: He is alert and cooperative with the interview. His speech is fluent, not rapid or pressured. Thought processes seem a little disorganized at times. He does have several pieces of art materials on his floor. He has not verbalize any thoughts of harm to self or others. Mood overall seems to be improved. Plan: Patient will be maintained on current psychotropic medication regimen. Continue to monitor for any medication side effects and monitor his ongoing response to treatment.
[2019-09-27] MEDS: ACETAMINOPHEN TAB 325 MG TAB PO PRN (19:07)
[2019-09-27] MEDS: LITHIUM CARBONATE 300 MG CAP PO SCH (21:12)
[2019-09-27] MEDS: MELATONIN 3 MG TABLET PO SCH (21:13)
[2019-09-28] MEDS: LEVOTHYROXINE 50 MCG TAB PO SCH (05:45)
[2019-09-28 07:00] VITALS: RESP 16
[2019-09-28] MEDS: OLANZapine 5 MG TAB PO SCH ×2 (08:06→20:50)
--- NOTE | 2019-09-28 14:21 | P.PN ---
Progress Note - Text Progress Note Date: 09/28/19 Interval history: Patient is seen again in cross coverage today. He has been working on some art work. He does describe that his mood is doing better. He does not verbalize any adverse psychotropic medication side effects. [place] level was therapeutic at 0.7 on 09/25. He does feel like his impulsivity is improving and he feels he is adjusting to the Zyprexa. Mental status exam: He is alert and cooperative with the interview. His thought processes are more organized today and he does not present with any rapid or pressured speech today. His mood he feels is improved. He does not verbalize any thoughts of harm to self or others. He has not verbalize any hallucinations. He does not verbalize any sharyn delusions. Plan: Patient will be maintained on current psychotropic medication regimen. Continue to monitor for any medication side effects monitor his ongoing response to treatment.
[2019-09-28] MEDS: LITHIUM CARBONATE 300 MG CAP PO SCH (20:50)
[2019-09-28] MEDS: MELATONIN 3 MG TABLET PO SCH (20:51)
[2019-09-29] MEDS: LEVOTHYROXINE 50 MCG TAB PO SCH (06:17)
[2019-09-29] MEDS ORDERED: ZIPRASIDONE 20 MG VIAL IM ONE (07:27)
[2019-09-29] MEDS ORDERED: WATER FOR INJECTION, STERILE 10 ML IV ONE (07:27)
[2019-09-29] MEDS: OLANZapine 5 MG TAB PO SCH ×2 (08:38→20:37)
--- NOTE | 2019-09-29 12:03 | P.PN ---
Subjective Progress Note Date: 09/29/19 Principal diagnosis: Bipolar disorder The patient seen and chart reviewed. The patient reports doing okay and has been cooperative and compliant with the treatment at this time. The patient reports fair sleep and appetite. He denies any crying spells or panic attacks. The patient denies any auditory or visual hallucinations. The patient denies any active suicidal or homicidal ideations at this time. The patient is pleasant and cooperative during the session. The patient denies any side effects on the medications at this time. Objective - Vital Signs Vital signs: Vital Signs Temp 98.0 F 09/29/19 06:42 Pulse 81 09/29/19 06:42 Resp 16 09/29/19 06:42 BP 133/65 09/29/19 06:42 Pulse Ox 99 09/29/19 06:42 Intake & Output 09/28/19 09/29/19 09/29/19 18:59 06:59 18:59 Weight 85.3 kg 85.5 kg - Exam The patient presents alert, pleasant, and cooperative. There calmly seated without any agitated behavior. He reports that mood is good. Affect is congruent and euthymic. He deny having any suicidal or homicidal ideation intent or plan. He denies any auditory or visual hallucinations. There is no evidence of any delusional thought content. His thought process is linear and goal-directed. His speech is fluent and nonpressured. His memory and concentration is grossly intact for the purposes of this session. - Labs CBC & Chem 7: 09/26/19 07:25 09/26/19 07:25 Assessment and Plan Assessment: Bipolar disorder acute episode mixed Plan: Continue inpatient level of care due to need for further stabilization on medica tions Precautions: Continue 15 minutes check for safety. Consults internal medicine team for management of medical problems. Provide the patient individual, group therapy, substance use disorder counseling to give better insight and learn coping skills. Medications: [place] 1200 mg by mouth daily at bedtime. Olanzapine 5 mg by mouth every morning and 50 mg by mouth daily at bedtime. Continue other medications and monitor closely. Discharge patient to OUTPATIENT services upon a stabilization Expected LOS: 3-5 days
[2019-09-29] MEDS: LITHIUM CARBONATE 300 MG CAP PO SCH (20:38)
[2019-09-29] MEDS: MELATONIN 3 MG TABLET PO SCH (20:38)
[2019-09-29] MEDS: ACETAMINOPHEN TAB 325 MG TAB PO PRN (20:38)
[2019-09-30] MEDS: LEVOTHYROXINE 50 MCG TAB PO SCH (06:25)
[2019-09-30] MEDS: OLANZapine 5 MG TAB PO SCH ×2 (08:55→20:52)
--- NOTE | 2019-09-30 13:20 | P.PN ---
Subjective Progress Note Date: 09/30/19 Principal diagnosis: Bipolar disorder The patient seen and chart reviewed. The patient reports feeling better and reports improvement in mood and functioning. The patient reports sleep and appetite. He denies any crying spells or panic attacks. The patient denies any auditory or visual hallucinations. The patient denies any active suicidal or homicidal ideations at this time. The patient is pleasant and cooperative during the session. The patient denies any side effects on the medications at this time. Objective - Vital Signs Vital signs: Vital Signs Temp 97.5 F L 09/30/19 06:35 Pulse 58 L 09/30/19 06:35 Resp 16 09/30/19 06:35 BP 98/57 09/30/19 06:35 Pulse Ox 97 09/30/19 06:35 - Exam The patient presents alert, pleasant, and cooperative. There calmly seated without any agitated behavior. He reports that mood is good. Affect is congruent and euthymic. He deny having any suicidal or homicidal ideation intent or plan. He denies any auditory or visual hallucinations. There is no evidence of any delusional thought content. His thought process is linear and goal-directed. His speech is fluent and nonpressured. His memory and con centration is grossly intact for the purposes of this session. - Labs CBC & Chem 7: 09/26/19 07:25 09/26/19 07:25 Assessment and Plan Assessment: Bipolar disorder acute episode mixed Plan: Continue inpatient level of care due to need for further stabilization on medications The patient has a court hearing tomorrow. Precautions: Continue 15 minutes check for safety. Consults internal medicine team for management of medical problems. Provide the patient individual, group therapy, substance use disorder counseling to give better insight and learn coping skills. Medications: Continue [place] 1200 mg by mouth daily at bedtime. Continue Olanzapine 5 mg by mouth every morning and 10 mg by mouth daily at bedtime. Continue other medications and monitor closely. Discharge patient to OUTPATIENT services upon a stabilization Expected LOS: 3-5 days
[2019-09-30] MEDS: LITHIUM CARBONATE 300 MG CAP PO SCH (20:51)
[2019-09-30] MEDS: MELATONIN 3 MG TABLET PO SCH (20:51)
[2019-09-30] MEDS: ACETAMINOPHEN TAB 325 MG TAB PO PRN (20:53)
[2019-10-01] MEDS: LEVOTHYROXINE 50 MCG TAB PO SCH (06:10)
[2019-10-01 07:18] VITALS: BP 92/59; PULSE 73; TEMP 97.7
[2019-10-01] MEDS: OLANZapine 5 MG TAB PO SCH (09:01)
--- NOTE | 2019-10-01 11:58 | P.PN ---
Subjective Progress Note Date: 10/01/19 Principal diagnosis: Bipolar disorder Discharge Note: Patient was seen and chart was reviewed. Case discussed with staff. The patient reports doing better and denies any new problems at this time. He admits to good sleep and appetite. At this time patient denies any suicidal or homical ideations, intent or plan. Patient denies any auditory, visual hallucinations and denies any paranoia or delusions. Patient denies any side effects from the medications and has been compliant with meds. Objective - Vital Signs Vital signs: Vital Signs Temp 97.7 F 10/01/19 06:48 Pulse 73 10/01/19 06:48 Resp 16 10/01/19 06:48 BP 92/59 10/01/19 06:48 Pulse Ox 97 10/01/19 06:48 - Exam Mental Status Exam: General Appearance: Patient appears to be stated age is alert, directable. Fair hygiene and grooming. Patient has good eye contact. Behavior: Patient is seated without any agitated behavior. Appears to be less anxious Speech: Patient's speech is fluent and nonpressured. soft tone. Mood/Affect: Patient reports their mood/anxiety is good, affect is congruent Suicidality/Homicidality: Patient denies having any suicidal or homicidal ideation intent or plan. Perceptions: Patient denies any auditory or visual hallucinations. Though content/process: There is no evidence of any delusional thought content and thought process is linear and goal-directed. Memory and concentration: AOX3, grossly intact for the purposes of this session. Judgment and insight: mildly improving. - Labs CBC & Chem 7: 09/26/19 07:25 09/26/19 07:25 Assessment and Plan Assessment: Bipolar disorder acute episode mixed Plan: Plan: Precautions: Continue 15 minutes check for safety. Consults internal medicine team for management of medical problems. Provide the patient individual, group therapy, substance use disorder counseling to give better insight and learn coping skills. Medications: Continue [place] 1200 mg by mouth daily at bedtime. Continue Olanzapine 5 mg by mouth every morning and 15 mg by mouth daily at bedtime. Continue other medications and monitor closely. Discharge home today to follow-up as an outpatient.
--- NOTE | 2019-10-01 12:10 | P.DS ---
Providers Date of admission: 09/25/19 12:37 Attending physician: Herminia Rivera MD Consults: 09/25/19 12:12 Consult Physician Routine Consulting Provider: Ananya Pettit Consult Reason/Comments: New MHU admission Do you want consulting provider notified?: Yes Primary care physician: Stated None Hospital Course: Discharge Diagnosis: Bipolar disorder, currently manic episode History of alcohol abuse Nicotine dependence IDENTIFYING DATA: This patient is a 29-year-old male with a history of bipolar disorder and multiple psychiatric hospitalizations. HISTORY OF PRESENT ILLNESS: The patient presented to the hospital initially and was brought in by his [facility] precision agriculture specialist as patient was having bizarre abnormal behaviors. ER report, stated that patient had been up all night painting and lethargic and had been kicked out of the housing situation he was in. Patient has a chronic history of bipolar disorder or mental illness and had been following up with [facility] and just received his Prolixin D injection of 25 mg prior to coming to the hospital. Patient was admitted to the mental unit initially however on admission patient spiked a fever and was shown to have lymphopenia with elevated white count and was lethargic and was evaluated by internal medicine and transferred to the medical floors as a person of interest for COVID testing. Patient had a negative flu test and the COVID test had been collected and sent for processing. Chest x-ray was negative and lithium level was 1.2 on admission. He was tangential/circumstantial and rambled about wanting to have a steak and missing his appointments. Patient was intrusive at times and wanted to leave the room and had poor judgment and insight. Patient tested negative for COVID and subsequently transferred back to the mental health unit. Patient continues to have flight of ideas and rambles at times. Patient spoke about the fears of COVID and stated "I wanted to be deal times again". Patient is agreeable to continue on with his medications. At the time patient denied any suicidal or homical ideations, intent or plan. Patient denied any auditory, visual hallucinations and denies any paranoia or delusions. Patients admited to using cigarettes and claims to use alcohol in the past however states he had not been drinking. PAST PSYCHIATRIC HISTORY: Bipolar disorder, anxiety. He was previously on lithium 600 mg twice a day and also receiving Prolixin D injections 25 mg and last was given on 09/23/2019. He was last admitted to the mental health unit on 03/2019. Patient currently follows up with [facility] and he denied any history of suicide attempts. PAST MEDICAL HISTORY: Hypothyroidism ALLERGIES: Aripiprazole. CHEMICAL DEPENDENCY HISTORY: as per HPI. FAMILY PSYCHIATRIC/SUBSTANCE USE HISTORY: denies SOCIAL HISTORY: Patient currently lives in an apartment with other people and states that he is currently unemployed and collecting Social Security. He is currently not and does not have any kids. MENTAL STATUS EXAM: General Appearance: Patient appears to be stated age is alert, less guarded today. Patient appears to have poor hygiene and grooming wearing street clothing with fair eye contact. Behavior: Patient is calmly lying in bed without any agitated behavior. Less irritable and intrusive. Speech: Patient's speech is fluent and nonpressured. Mood/Affect: Patient reports their mood is "ok", affect is congruent. Suicidality/Homicidality: Patient denies having any suicidal or homicidal ideation intent or plan. Perceptions: Patient denies any visual hallucinations and denies any auditory hallucinations Though content/process: Patient rambles and was tangential/circumstantial. Memory and concentration: AOX3, grossly intact for the purposes of this session. Can spell "WORLD" backwards Judgment and insight: poor/impulsive, mildly improving STRENGTHS/WEAKNESSES: strength is that patient is resilient. Weakness is that patient has poor judgment and is impulsive INTELLECT: average Hospital Course: Patient was admitted on a involuntary basis, placed on routine observation in group and activity therapy were ordered. Patient was also ordered routine laboratory studies, and a medical consultation was also ordered. Patient also was returned to his prior medications for his medical problems. -Medications : The patient was started on on lithium 1200 mg daily at bedtime for mood stabilization, Zyprexa 15 mg daily at bedtime +5 mg daily for mood stabilization/psychosis. Continue with melatonin 6 mg daily at bedtime for sleep. -Ativan and Haldol PRN for agitation/aggression -Patient's lithium level was 0.7 on admission. -Patient was informed of the risks, benefits and side effects of the medication and patient verbally consented to taking the medications. Patient signed med consent form and was placed in chart. -Internal Medicine consult to perform medical evaluation and physical. -NRT - nicotine gum. -SW initiated discharge planning. Encouraged patient to participate in groups to work on coping skills. Patient was scheduled for full court hearing in a week. Patient was attending groups and activities, sleeping and eating well and reported that his mood had improved. Patient reported no side effects from the medication. Patient will follow up at [facility]. Patient signed the voluntary and his status was changed voluntary. The patient was pleasant and cooperative on the unit. Discharge plans were continued. The patient's condition was stabilized. Patient was agreeable with the plan for discharge and will follow up at [facility] Discharge Mental Status: Appearance/Attitude: Patient is neatly and appropriately dressed, makes eye contact and was cooperative. Behavior: Patient did not display any psychomotor agitation or retardation. Speech/Language: Patient's speech was spontaneous of normal volume and rhythm and he was coherent Thought Process: Patient was goal-directed there is no evidence of loose association or flight of ideas Thought Content: Patient denied any auditory or visual hallucinations no delusions or paranoid ideation were elicited. Suicidal/Homicidal Ideation: Patient denies any current suicidal or homicidal ideation Sensorium/Cognition: Patient is alert and oriented to person, place, and time and his recent and remote memory were grossly intact Mood/Affect: Patient's mood is more positive and his affect is appropriate to his mood Insight/Judgment: Patient's insight and judgment are fair Risk Assessment: Patient's risk for readmission is moderate to the patient not be compliant with medications and follow-up care, use alcohol and/or drugs Discharge Plan: Patient will be discharged on 10/01/2019 Patient has a follow[facility]up appointment[facility] and will follow up at the [facility] clinic for his medical problems. Patient was encouraged to be compliant with medications and follow-up appointments and to avoid all alcohol and drugs. Patient Condition at Discharge: Stable Assessment: IMPRESSIONS: Bipolar disorder, currently manic episode History of alcohol abuse Nicotine dependence Patient Condition at Discharge: Stable Plan - Discharge Summary New Discharge Prescriptions: New Benztropine Mesylate [Cogentin] 2 mg PO DAILY PRN #30 tab PRN Reason: Extrapyramidal Effects [place] Carbonate 1,200 mg PO HS #120 cap Melatonin 6 mg PO HS #30 tablet Nicotine Polacrilex [Nicorette] 2 mg BUCCAL Q4HR PRN #14 gum PRN Reason: Nicotine Cravings Continue Levothyroxine Sodium [Synthroid] 50 mcg PO DAILY OLANZapine [ZyPREXA] 15 mg PO HS #30 tab OLANZapine [ZyPREXA] 5 mg PO DAILY #30 tab Discontinued [place] Carbonate 1,200 mg PO HS Discharge Medication List Levothyroxine Sodium [Synthroid] 50 mcg PO DAILY 09/23/19 [History] Benztropine Mesylate [Cogentin] 2 mg PO DAILY PRN #30 tab 10/01/19 [Rx] [place] Carbonate 1,200 mg PO HS #120 cap 10/01/19 [Rx] Melatonin 6 mg PO HS #30 tablet 10/01/19 [Rx] Nicotine Polacrilex [Nicorette] 2 mg BUCCAL Q4HR PRN #14 gum 10/01/19 [Rx] OLANZapine [ZyPREXA] 5 mg PO DAILY #30 tab 10/01/19 [Rx] OLANZapine [ZyPREXA] 15 mg PO HS #30 tab 10/01/19 [Rx] Activity/Diet/Wound Care/Special Instructions: Activity and diet as tolerated. Avoid the use of street drugs and alcohol. Take all medications as prescribed. When you are in need of refills on your medications please contact your medical provider and/or outpatient psychiatrist to have this done. Please go to scheduled outpatient appointment for aftercare treatment. If symptoms return or become worse, call the crisis line at [phone] and/or go to the nearest emergency room for evaluation.
== END 2019-10-01 13:56 | disposition home or self-care (01) | DRG 885 ==
LOC: 3MHU 12:37
PROVIDERS: ADMIT Psychiatry & Neurology Psychiatry; ATTEND Psychiatry & Neurology Psychiatry
DX: F31.9 Bipolar disorder, unspecified (principal); E03.9 Hypothyroidism, unspecified; F41.9 Anxiety disorder, unspecified; F17.200 Nicotine dependence, unspecified, uncomplicated; Z88.8 Allergy status to other drugs, medicaments and biological substances
CPT/HCPCS: 80053; 80061; 80178; 83036; 84443; 85025

== ENCOUNTER 2019-10-29 18:20 | Inpatient (IN) | payer MEDICARE, OTHER ==
[2019-10-29] MEDS ORDERED: cefTRIAXone 1,000 MG VIAL (IM USE) IM STA (18:49)
--- NOTE | 2019-10-29 19:21 | XR ---
Right leg HISTORY: Laceration To views of the right leg on 3 images Multiple flake-like foreign bodies are present within the soft tissues consistent with patient's inju ry. No fracture or dislocation. Soft tissue defect is consistent with patient's injury. IMPRESSION: Radiopaque foreign bodies.
[2019-10-29] MEDS ORDERED: LORazepam 2 MG/ML INJ IV STA (19:26)
[2019-10-29] MEDS ORDERED: DIPH,PERTUS(ACELL)TETVAC-LF 0.5 ML VIAL IM ONE (19:30)
[2019-10-29 19:42] LABS: Basophils # (A) 0.1 k/uL (0-0.2); Basophils % (A) 0 %; Eosinophils # (A) 0.2 k/uL (0-0.7); Eosinophils % (A) 1 %; HCT 44.9 % (39.0-53.0); HGB 14.6 gm/dL (13.0-17.5); Lymphocytes # (A) 2.2 k/uL (1.0-4.8); Lymphocytes % (A) 19 %; MCH 30.6 pg (25.0-35.0); MCHC 32.5 g/dL (31.0-37.0); MCV 94.3 fL (80.0-100.0); Mean Platelet Volume 7.4; Monocytes # (A) 0.6 k/uL (0-1.0); Monocytes % (A) 5 %; Neutrophils # (A) 8.5 k/uL (1.3-7.7); Neutrophils % (A) 72 %; Platelet Count 287 k/uL (150-450); RBC 4.77 m/uL (4.30-5.90); WBC 11.8 k/uL (3.8-10.6)
[2019-10-29 19:51] LABS: Partial Thromboplastin Time 24.6 sec (22.0-30.0); Prothrombin Time 10.3 sec (9.0-12.0)
[2019-10-29 19:55] LABS: ALT 24 U/L (4-49); AST 30 U/L (17-59); African American GFR (CKD) >90 (>60 ml/min/1.73 sqM); Albumin 4.3 g/dL (3.5-5.0); Alkaline Phosphatase 55 U/L (38-126); Anion Gap 8 mmol/L; Blood Urea Nitrogen <2 mg/dL (9-20); Calcium 9.8 mg/dL (8.4-10.2); Carbon Dioxide 23 mmol/L (22-30); Chloride 109 mmol/L (98-107); Glucose 94 mg/dL (74-99); Non-African American GFR(CKD) >90 (>60 ml/min/1.73 sqM); Potassium 3.9 mmol/L (3.5-5.1); Sodium 140 mmol/L (137-145); Total Bilirubin 0.4 mg/dL (0.2-1.3); Total Protein 7.1 g/dL (6.3-8.2)
[2019-10-29] MEDS ORDERED: MORPHINE SULFATE 4 MG/ML SYRINGE IVP STA (20:09)
[2019-10-29] MEDS ORDERED: NALOXONE 0.4 MG/ML 1 ML VIAL IV PRN (20:48)
[2019-10-29] MEDS ORDERED: ACETAMINOPHEN TAB 325 MG TAB PO PRN (20:48)
[2019-10-29] MEDS ORDERED: ONDANSETRON 4 MG/2 ML VIAL IVP PRN (20:48)
[2019-10-29] MEDS ORDERED: MORPHINE SULFATE 4 MG/ML SYRINGE IV PRN (20:48)
--- NOTE | 2019-10-29 20:48 | ED ---
General Adult HPI - General Source: EMS Mode of arrival: EMS Limitations: no limitations <Nabila Thompson - Last Filed: 10/31/19 01:11> <Thea Osei - Last Filed: 11/01/19 21:22> - General Chief complaint: Trauma Stated complaint: Mental health Time Seen by Provider: 10/29/19 18:23 - History of Present Illness Initial comments: Patient is a 29-year-old male brought into the emergency department via EMS and police with a significant laceration to his right lower leg. According to EMS and police reports, patient was breaking into a hinduism when he put his foot through a window. Patient did arrive in handcuffs and is under arrest. Bleeding is controlled at this time. Patient does have a significant psych history including bipolar 1. Patient also is intoxicated. Patient denies pain anywhere else besides his lower leg. He denies recent fever, cough. He does not answer any other questions. Upon arrival to the ER his vitals are stable. (Nabila Thompson) - Related Data Home Medications Medication Instructions Recorded Confirmed Levothyroxine Sodium [Synthroid] 50 mcg PO DAILY 09/23/19 10/31/19 OLANZapine 20 mg PO HS 10/29/19 10/31/19 Previous Rx's Medication Instructions Recorded [place] Carbonate 1,200 mg PO HS #120 cap 10/01/19 Cephalexin [Keflex] 500 mg PO Q6HR #56 cap 10/31/19 Folic Acid 1 mg PO DAILY tab 10/31/19 Haloperidol [Haldol] 2 mg PO TID PRN #10 tablet 10/31/19 Paliperidone [Invega] 3 mg PO DAILY tab.er.24 10/31/19 Thiamine [Vitamin B-1] 100 mg PO DAILY tab 10/31/19 Allergies Allergy/AdvReac Type Severity Reaction Status Date / Time aripiprazole [From Abilify] AdvReac Swelling Verified 11/01/19 12:46 Review of Systems ROS Other: All systems not noted in ROS Statement are negative. <Nabila Thompson - Last Filed: 10/31/19 01:11> ROS Other: All systems not noted in ROS Statement are negative. <Thea Osei - Last Filed: 11/01/19 21:22> ROS Statement: Those systems with pertinent positive or pertinent negative responses have been documented in the HPI. Past Medical History Past Medical History: Thyroid Disorder History of Any Multi-Drug Resistant Organisms: None Reported Past Surgical History: No Surgical Hx Reported Additional Past Surgical History / Comment(s): Fracture in left wrist repaired as a child Past Anesthesia/Blood Transfusion Reactions: No Reported Reaction Past Psychological History: Anxiety, Bipolar Smoking Status: Current every day smoker Past Alcohol Use History: None Reported Past Drug Use History: None Reported - Past Family History Father Additional Family Medical History / Comment(s): Father is alive at age 52 with history of alcohol abuse. Mother History Unknown: Yes Family Medical History: Diabetes Mellitus Additional Family Medical History / Comment(s): Mother is alive at age 51 with history of diabetes. Patient does not have any brothers. Patient has 2 sisters and one has anxiety. <Nabila Thompson - Last Filed: 10/31/19 01:11> General Exam Limitations: no limitations <Nabila Thompson - Last Filed: 10/31/19 01:11> - General Exam Comments Initial Comments: GENERAL: Patient is intoxicated, not answering questions. HEAD: Atraumatic, normocephalic. EYES: Pupils equal round and reactive to light, extraocular movements intact, sclera anicteric, conjunctiva are normal. ENT: TMs normal, nares patent, oropharynx clear without exudates. Moist mucous membranes. NECK: Normal range of motion, supple without lymphadenopathy or JVD. LUNGS: Breath sounds clear to auscultation bilaterally and equal. No wheezes rales or rhonchi. HEART: Regular rate and rhythm without murmurs, rubs or gallops. ABDOMEN: Soft, nontender, normoactive bowel sounds. No guarding, no rebound. No masses appreciated. : Deferred EXTREMITIES: Patient has full range of motion of his bilateral lower extremities. He is neurovascular intact. No pitting or edema. No clubbing or cyanosis. NEUROLOGICAL: Cranial nerves II through XII grossly intact. Normal speech, normal gait. PSYCH: Normal mood, normal affect. SKIN: Warm, Dry, normal turgor, no rashes. Patient has a large, deep laceration to the right lower leg anterior portion. Measures approximately 12 cm x 5 cm. Bleeding is controlled at this time. Bone is visible as well as muscle. (Nabila Palmer) Course Vital Signs 10/29/19 10/29/19 10/29/19 18:23 19:02 19:43 Temperature 98.9 F Pulse Rate 101 H 87 81 Respiratory 18 18 18 Rate Blood Pressure 116/80 122/91 120/86 O2 Sat by Pulse 97 97 99 Oximetry 10/29/19 21:07 Temperature Pulse Rate 80 Respiratory 18 Rate Blood Pressure 128/83 O2 Sat by Pulse 99 Oximetry Procedures - Laceration Laceration #1 Consent Obtained: verbal consent Indication: laceration Site: lower extremity (Right lower leg, anterior) Size (cm): 12 Description: linear, contaminated, foreign body Depth: involves muscle layer Pre-repair: irrigated extensively Type of Sutures: nylon Size of Sutures: 3-0 Number of Sutures: 3 Technique: simple, interrupted Patient Tolerated Procedure: well <Nabila Thompson - Last Filed: 10/31/19 01:11> - Laceration Laceration #1 Additional Comments: Patient's was extensively irrigated, 3 sutures were applied to closely approximate the wound. (Nabila Thompson) Medical Decision Making - Lab Data Result diagrams: 10/30/19 06:00 10/30/19 06:00 <Nabila Thompson - Last Filed: 10/31/19 01:11> - Lab Data Result diagrams: 10/31/19 05:45 10/30/19 06:00 <Thea Osei - Last Filed: 11/01/19 21:22> - Medical Decision Making Patient is a 29-year-old male brought in by EMS and police for putting his legs through a window. Patient has a significant laceration of the right anterior lower leg. This measures approximately 12 cm x 5 cm. Bleeding is controlled at this time. Patient was also intoxicated, BAT was .130. He also has a psych history. Patient was given antibiotics for open wound. X-rays reveal several foreign bodies. Patient's wound was extensively irrigated. We spoke with on- call orthopedic, Dr. Raul Jorgensen, who agrees to take the patient in tomorrow for surgical wash out. We will admit to medicine and consult orthopedics as well as psychiatry. Patient's tetanus was updated as well as dose of Ancef. Patient's wound was extensively irrigated with 1 L of sterile fluid. Patient's wound was loosely approximated with 3 sutures. Wet dressing was applied and a bandage over top. Case discussed with Dr. Osei. (Nabila Thompson) I was available for consultation in the emergency department. The history and physical exam were done by the midlevel provider. I was consulted for this patients care. I reviewed the case with the midlevel provider and based on their presentation of the patient, I agree with the assessment, medical decision making and plan of care as documented. The patient arrived to the ED with a tourniquet in place on his right leg. Tourniquet was removed and patient had brisk bleeding from a large cutaneous vein. Pressure was held however the patient required 2 figure 8 vinyl sutures to slow the bleeding. The remainder of the irrigation and loose wound closure was done by the midlevel provider. I discussed the case with Dr. Jorgensen who agreed to consult on the patient and evaluate him for surgical washout. He requested the patient be admitted to the metal control worker hospitalist. Chart was dictated using [employer] dictation software. Attempts were made to correct any dictation errors however some typographical errors may persist. Patient was seen during a national state of emergency due to the Covid-19 pandemic. (Thea Osei) - Lab Data Lab Results 10/29/19 10/29/19 10/29/19 Range/Units 19:35 19:35 19:35 WBC 11.8 H (3.8-10.6) k/uL RBC 4.77 (4.30-5.90) m/uL Hgb 14.6 (13.0-17.5) gm/dL Hct 44.9 (39.0-53.0) % MCV 94.3 (80.0-100.0) fL MCH 30.6 (25.0-35.0) pg MCHC 32.5 (31.0-37.0) g/dL RDW 13.0 (11.5-15.5) % Plt Count 287 (150-450) k/uL Neutrophils % 72 % Lymphocytes % 19 % Monocytes % 5 % Eosinophils % 1 % Basophils % 0 % Neutrophils # 8.5 H (1.3-7.7) k/uL Lymphocytes # 2.2 (1.0-4.8) k/uL Monocytes # 0.6 (0-1.0) k/uL Eosinophils # 0.2 (0-0.7) k/uL Basophils # 0.1 (0-0.2) k/uL PT 10.3 (9.0-12.0) sec INR 1.0 (<1.2) APTT 24.6 (22.0-30.0) sec Sodium 140 (137-145) mmol/L Potassium 3.9 (3.5-5.1) mmol/L Chloride 109 H (98-107) mmol/L Carbon Dioxide 23 (22-30) mmol/L Anion Gap 8 mmol/L BUN <2 L (9-20) mg/dL Creatinine 0.74 (0.66-1.25) mg/dL Est GFR (CKD-EPI)AfAm >90 (>60 ml/min/1.73 sqM) Est GFR (CKD-EPI)NonAf >90 (>60 ml/min/1.73 sqM) Glucose 94 (74-99) mg/dL Calcium 9.8 (8.4-10.2) mg/dL Magnesium (1.6-2.3) mg/dL Total Bilirubin 0.4 (0.2-1.3) mg/dL AST 30 (17-59) U/L ALT 24 (4-49) U/L Alkaline Phosphatase 55 (38-126) U/L Total Protein 7.1 (6.3-8.2) g/dL Albumin 4.3 (3.5-5.0) g/dL [place] mmol/L Coronavirus (PCR) (Not Detectd) 10/29/19 10/30/19 10/30/19 Range/Units 19:47 06:00 06:00 WBC 12.2 H (3.8-10.6) k/uL RBC 4.42 (4.30-5.90) m/uL Hgb 13.9 (13.0-17.5) gm/dL Hct 41.9 (39.0-53.0) % MCV 94.8 (80.0-100.0) fL MCH 31.4 (25.0-35.0) pg MCHC 33.1 (31.0-37.0) g/dL RDW 13.1 (11.5-15.5) % Plt Count 316 (150-450) k/uL Neutrophils % % Lymphocytes % % Monocytes % % Eosinophils % % Basophils % % Neutrophils # (1.3-7.7) k/uL Lymphocytes # (1.0-4.8) k/uL Monocytes # (0-1.0) k/uL Eosinophils # (0-0.7) k/uL Basophils # (0-0.2) k/uL PT (9.0-12.0) sec INR (<1.2) APTT (22.0-30.0) sec Sodium 139 (137-145) mmol/L Potassium 4.4 (3.5-5.1) mmol/L Chloride 108 H (98-107) mmol/L Carbon Dioxide 25 (22-30) mmol/L Anion Gap 6 mmol/L BUN 6 L (9-20) mg/dL Creatinine 0.78 (0.66-1.25) mg/dL Est GFR (CKD-EPI)AfAm >90 (>60 ml/min/1.73 sqM) Est GFR (CKD-EPI)NonAf >90 (>60 ml/min/1.73 sqM) Glucose 85 (74-99) mg/dL Calcium 8.9 (8.4-10.2) mg/dL Magnesium 1.9 (1.6-2.3) mg/dL Total Bilirubin (0.2-1.3) mg/dL AST (17-59) U/L ALT (4-49) U/L Alkaline Phosphatase (38-126) U/L Total Protein (6.3-8.2) g/dL Albumin (3.5-5.0) g/dL [place] mmol/L Coronavirus (PCR) Not Detected (Not Detectd) 10/30/19 Range/Units 06:00 WBC (3.8-10.6) k/uL RBC (4.30-5.90) m/uL Hgb (13.0-17.5) gm/dL Hct (39.0-53.0) % MCV (80.0-100.0) fL MCH (25.0-35.0) pg MCHC (31.0-37.0) g/dL RDW (11.5-15.5) % Plt Count (150-450) k/uL Neutrophils % % Lymphocytes % % Monocytes % % Eosinophils % % Basophils % % Neutrophils # (1.3-7.7) k/uL Lymphocytes # (1.0-4.8) k/uL Monocytes # (0-1.0) k/uL Eosinophils # (0-0.7) k/uL Basophils # (0-0.2) k/uL PT (9.0-12.0) sec INR (<1.2) APTT (22.0-30.0) sec Sodium (137-145) mmol/L Potassium (3.5-5.1) mmol/L Chloride (98-107) mmol/L Carbon Dioxide (22-30) mmol/L Anion Gap mmol/L BUN (9-20) mg/dL Creatinine (0.66-1.25) mg/dL Est GFR (CKD-EPI)AfAm (>60 ml/min/1.73 sqM) Est GFR (CKD-EPI)NonAf (>60 ml/min/1.73 sqM) Glucose (74-99) mg/dL Calcium (8.4-10.2) mg/dL Magnesium (1.6-2.3) mg/dL Total Bilirubin (0.2-1.3) mg/dL AST (17-59) U/L ALT (4-49) U/L Alkaline Phosphatase (38-126) U/L Total Protein (6.3-8.2) g/dL Albumin (3.5-5.0) g/dL [place] <0.2 mmol/L Coronavirus (PCR) (Not Detectd) Disposition Is patient prescribed a controlled substance at d/c from ED?: No Decision Date: 10/29/19 Decision Time: 20:54 <Nabila Thompson - Last Filed: 10/31/19 01:11> <Thea Osei - Last Filed: 11/01/19 21:22> Clinical Impression: Alcohol intoxication, Laceration of right lower leg with foreign body, Bipolar I disorder, recurrent manic episode Disposition: ADMITTED IP TO THIS HOSP Condition: Good
[2019-10-30] MEDS ORDERED: HALOPERIDOL LACTATE 5 MG/ML 1 ML VIAL ONE (03:30)
[2019-10-30] MEDS ORDERED: HALOPERIDOL 5 MG TAB PO ONE (03:32)
--- NOTE | 2019-10-30 04:24 | P.HPIM ---
History of Present Illness H&P Date: 10/29/19 The patient is a 29 yo M with a PMH of EtOH abuse and bipolar disorder who was brought in under police custody after the patient had broken into a [employer]. The patient was reported to have broken in via a [employer] window, suffering a large R leg laceration in the process. The patient had reported to the ED staff that he had "chugged a bottle of vodka" after breaking into the [employer]. The patient was obtunded during examination and would only mumble few words and did not contribute to the history, which was obtained from EMS staff and ED documentation. The patient had reported only R leg pain to the staff and had denied any additional complaints, though was noted to be manic and delusional and was brought in with handcuffs. The patient was noted to have a 10-15 cm laceration on the medial-anterior R wynn, for which 3 loose sutures were placed by ED attending. The patient had undergone an extensive evaluation in the ED with RLE X-ray which revealed radiopaque foreign bodies. Laboratory evaluation had revealed WBC count 11.8, Hgb 14.6, plt 287, Na 140, K 3.9, Cl 109, BUN < 2, Cr 0.74, with coronavirus pcr negative. The patient is being admitted for acute psychosis and RLE laceration, pending psychiatry and orthopedic surgery evaluations. Review of Systems ROS unobtainable: due to mental status Past Medical History Past Medical History: Thyroid Disorder History of Any Multi-Drug Resistant Organisms: None Reported Past Surgical History: No Surgical Hx Reported Additional Past Surgical History / Comment(s): Fracture in left wrist repaired as a child Past Anesthesia/Blood Transfusion Reactions: No Reported Reaction Past Psychological History: Anxiety, Bipolar Smoking Status: Current every day smoker Past Alcohol Use History: None Reported Past Drug Use History: None Reported - Past Family History Father Additional Family Medical History / Comment(s): Father is alive at age 52 with history of alcohol abuse. Mother History Unknown: Yes Family Medical History: Diabetes Mellitus Additional Family Medical History / Comment(s): Mother is alive at age 51 with history of diabetes. Patient does not have any brothers. Patient has 2 sisters and one has anxiety. Medications and Allergies Home Medications Medication Instructions Recorded Confirmed Type Levothyroxine Sodium [Synthroid] 50 mcg PO DAILY 09/23/19 10/29/19 History [place] Carbonate 1,200 mg PO HS #120 cap 10/01/19 10/29/19 Rx OLANZapine 20 mg PO HS 10/29/19 10/29/19 History Allergies Allergy/AdvReac Type Severity Reaction Status Date / Time aripiprazole [From Abili] AdvReac Swelling Verified 10/29/19 22:13 Physical Exam Vitals: Vital Signs Temp Pulse Resp BP Pulse Ox 10/29/19 21:07 80 18 128/83 99 10/29/19 19:43 81 18 120/86 99 10/29/19 19:02 87 18 122/91 97 10/29/19 18:23 98.9 F 101 H 18 116/80 97 Intake and Output 10/29/19 10/29/19 10/29/19 06:59 14:59 22:59 Other: Weight 113.398 kg General: Disheveled male, no distress, appears at stated age, obese Derm: Right lower extremity medial-anterior wynn 10-15 cm laceration with 3 loose sutures, no active bleeding Head: atraumatic, normocephalic, symmetric Eyes: EOMI, anicteric sclera, pupils equal round reactive to light ENT: Nose and ears atraumatic Neck: No thyromegaly, no cervical lymphadenopathy, trachea midline, supple Mouth: no lip lesion, mucus membranes moist Cardiovascular: S1S2 reg, no murmur, positive posterior tibial pulse bilateral, no edema, capillary refill less than 2 seconds Lungs: CTA bilateral, no rhonchi, no rales , no accessory muscle use Abdominal: soft, no guarding, no appreciable organomegaly, normal bowel sounds Ext: no gross muscle atrophy Neuro: Patient obtunded during examination, opens eyes and moans to noxious stimuli Results CBC & Chem 7: 10/29/19 19:35 10/29/19 19:35 Labs: Abnormal Lab Results - Last 24 Hours (Table) 10/29/19 10/29/19 Range/Units 19:35 19:35 WBC 11.8 H (3.8-10.6) k/uL Neutrophils # 8.5 H (1.3-7.7) k/uL Chloride 109 H (98-107) mmol/L BUN <2 L (9-20) mg/dL Assessment and Plan Plan: RLE laceration -Orthopedic surgery evaluation for washout -Wound care -Status post prophylactic dose of cefazolin -Pain control Bipolar 1 disorder with psychosis -1:1 observation for now -Psychiatry consult -C/w home [place] and Olanzapine doses EtOH abuse, with impending withdrawal -Thiamine, folate, multivitamin -Seizure, fall, aspiration precautions -CIWA protocol DVT prophylaxis -Hold off in setting of large RLE laceration The patient is admitted with an anticipated less than 2 midnight stay for evaluation of RLE laceration CODE STATUS: Full Code Discussed with: Patient Anticipated discharge date: 1-[address]: MHU A total of 40 minutes was spent on the care of this complex patient more than 50% of the time was spent in counseling and care coordination.
[2019-10-30] MEDS ORDERED: LORazepam 2 MG/ML INJ IV PRN ×3 (04:27)
[2019-10-30 07:03] LABS: HCT 41.9 % (39.0-53.0); HGB 13.9 gm/dL (13.0-17.5); MCH 31.4 pg (25.0-35.0); MCHC 33.1 g/dL (31.0-37.0); MCV 94.8 fL (80.0-100.0); Mean Platelet Volume 7.5; Platelet Count 316 k/uL (150-450); RBC 4.42 m/uL (4.30-5.90); RDW 13.1 % (11.5-15.5); WBC 12.2 k/uL (3.8-10.6)
[2019-10-30 07:22] LABS: African American GFR (CKD) >90 (>60 ml/min/1.73 sqM); Anion Gap 6 mmol/L; Blood Urea Nitrogen 6 mg/dL (9-20); Calcium 8.9 mg/dL (8.4-10.2); Carbon Dioxide 25 mmol/L (22-30); Chloride 108 mmol/L (98-107); Glucose 85 mg/dL (74-99); Magnesium 1.9 mg/dL (1.6-2.3); Non-African American GFR(CKD) >90 (>60 ml/min/1.73 sqM); Potassium 4.4 mmol/L (3.5-5.1); Sodium 139 mmol/L (137-145)
[2019-10-30] MEDS: FOLIC ACID 1 MG TAB PO SCH (09:15)
[2019-10-30] MEDS: THIAMINE 100 MG TAB PO SCH (09:15)
[2019-10-30] MEDS: MULTIVITAMINS, THERA 1 EACH TAB PO SCH (09:15)
[2019-10-30] MEDS: LEVOTHYROXINE 50 MCG TAB PO SCH (09:15)
--- NOTE | 2019-10-30 12:26 | P.CNOR ---
History of Present Illness - [facility] Consult date: 10/30/19 Consult reason: other History of present illness: Patient is a 29-year-old male seen at bedside this am in consultation foer laceration of right lower leg. He was brought into the emergency department via EMS and police with a last evening with a significant laceration to his right lower leg. According to EMS and police reports, patient was breaking into a [employer] when he put his foot through a window. Patient arrived in handcuffs and was under arrest. When asked this morning about how he injured his right leg he states that he believes that their is a "conspiracy with aliens" and he wondered if the wound could just be "burned". Further questions were diverted to off subject topics. Patient does have a significant psych history including bipolar 1. Patient was also intoxicated last evening. Patient denies pain anywhere else besides his lower leg. He denies recent fever, cough. He does not answer any other questions. Review of Systems ROS unobtainable: due to mental status Past Medical History Past Medical History: Thyroid Disorder History of Any Multi-Drug Resistant Organisms: None Reported Past Surgical History: No Surgical Hx Reported Additional Past Surgical History / Comment(s): Fracture in left wrist repaired as a child Past Anesthesia/Blood Transfusion Reactions: No Reported Reaction Past Psychological History: Anxiety, Bipolar Smoking Status: Current every day smoker Past Alcohol Use History: None Reported Past Drug Use History: None Reported - Past Family History Father Additional Family Medical History / Comment(s): Father is alive at age 52 with history of alcohol abuse. Mother History Unknown: Yes Family Medical History: Diabetes Mellitus Additional Family Medical History / Comment(s): Mother is alive at age 51 with history of diabetes. Patient does not have any brothers. Patient has 2 sisters and one has anxiety. Medications and Allergies Home Medications Medication Instructions Recorded Confirmed Type Levothyroxine Sodium [Synthroid] 50 mcg PO DAILY 09/23/19 10/29/19 History [place] Carbonate 1,200 mg PO HS #120 cap 10/01/19 10/29/19 Rx OLANZapine 20 mg PO HS 10/29/19 10/29/19 History Allergies Allergy/AdvReac Type Severity Reaction Status Date / Time aripiprazole [From Abilify] AdvReac Swelling Verified 10/29/19 22:13 Physical Examination Inspection of right lower extremity shows a well applied mac with no evidence of active bleeding or drainage. Motor and sensation is grossly intact throughout right lower extremity as patient isn't fully compliant for detailed examination. He is able to ambulate without difficulty. Calf is SNT. Pulses present and less than 2 sec cap refill present distally Results - Labs Labs: Abnormal Lab Results - Last 24 Hours (Table) 10/29/19 10/29/19 10/30/19 Range/Units 19:35 19:35 06:00 WBC 11.8 H 12.2 H (3.8-10.6) k/uL Neutrophils # 8.5 H (1.3-7.7) k/uL Chloride 109 H (98-107) mmol/L BUN <2 L (9-20) mg/dL 10/30/19 Range/Units 06:00 WBC (3.8-10.6) k/uL Neutrophils # (1.3-7.7) k/uL Chloride 108 H (98-107) mmol/L BUN 6 L (9-20) mg/dL H & H 10/29/19 10/30/19 Range/Units 19:35 06:00 Hgb 14.6 13.9 (13.0-17.5) gm/dL Hct 44.9 41.9 (39.0-53.0) % Coagulation 10/29/19 Range/Units 19:35 INR 1.0 (<1.2) Result Diagrams: 10/30/19 06:00 10/30/19 06:00 Assessment and Plan (1) Laceration of right lower leg with foreign body Narrative/Plan: Patient has been reviewed with Dr. Raul Jorgensen. Plan is to proceed with surgical intervention today including I and D with primary wound closure of right lower leg. He has been NPO. Procedure ordered and boarded. He may discharg e from orthopedic standpoint when ok with primary team. Current Visit: Yes Status: Acute Priority: Medium Code(s): S81.821A - LACERATION WITH FOREIGN BODY, RIGHT LOWER LEG, INIT ENCNTR SNOMED Code(s): 861799991 Time with Patient: Less than 30
[2019-10-30] MEDS ORDERED: HALOPERIDOL LACTATE 5 MG/ML 1 ML VIAL IM PRN (13:29)
--- NOTE | 2019-10-30 13:42 | P.CN ---
Psychiatric Consult - . Consult date: 10/30/19 Consult:: 10/30/19 13:30 IDENTIFYING DATA: This patient is a 29-year-old male with a history of bipolar disorder and substance abuse. HISTORY OF PRESENT ILLNESS: The patient presented to the hospital yesterday via EMS and with police escorts as patient sustained a right lower leg laceration after patient was allegedly trying to break into a [employer] and cut his leg in class. Patient was supposedly intoxicated in the ER and bleeding was controlled. Orthopedic surgery was on board and will proceed with surgical wash out today as patient has retained glass in his leg. Psychiatrist consulted for dione. Patient was recently discharged from the mental health unit on 09/2019 and was on lithium 1200 mg at night Zyprexa 5 mg daily +50 mg daily at bedtime along with Cogentin 2 mg daily when necessary. Patient was seen at the bedside with a sitter and as he was being prepared for surgery later on this afternoon. Patient appeared to be calmer this morning and states that he was "being goofy" and appeared to be tangential and illogical at times. He spoke about breaking into the [employer] and states that "I wanted to see how was like inside" and also claimed that he was a mistake. He states that his mood is "fine". Patient did have a flight of ideas and racing thoughts and also spoke about wanting to "go to the racetrack, but I can't right now". He stated that he had poor sleep and poor concentration and patient was distractible during the interview. At this time patient denies any suicidal or homical ideations, intent or plan. Patient denies any auditory, visual hallucinations. Patients admits to using alcohol however an unknown quantity and cigarettes daily. PAST PSYCHIATRIC HISTORY: Patient has a history of bipolar disorder type I and was previously discharged from the mental unit on 09/2019. Patient was previo usly on lithium, Zyprexa and Cogentin and states that he has been taking his medications. Patient denies any psychiatric outpatient follow-up although patient should be following up with [facility]. PAST MEDICAL HISTORY: Thyroid disorder. ALLERGIES: as per EMR. CHEMICAL DEPENDENCY HISTORY: as per HPI. FAMILY PSYCHIATRIC/SUBSTANCE USE HISTORY: Father abuses alcohol and sister is a history of anxiety. SOCIAL HISTORY: Patient currently lives in an apartment with other people and states that he is currently unemployed and collecting Social Security. He is currently not and does not have any kids. MENTAL STATUS EXAM: General Appearance: Patient appears to be stated age is alert, difficult to redirect and bizarre. Patient appears to have fair hygiene and grooming wearing hospital gown with poor eye contact. Behavior: Patient is calmly lying in bed without any agitated behavior. Bizarre at times. Speech: Patient's speech is fluent and nonpressured. Mood/Affect: Patient reports their mood is "fine", affect is congruent Suicidality/Homicidality: Patient denies having any suicidal or homicidal ideation intent or plan. Perceptions: Patient denies any visual hallucinations and denies any auditory hallucinations Though content/process: Patient has a flight of ideas, rambles at times and was illogical and distractible during conversation. Memory and concentration: AOX3, grossly intact for the purposes of this session. Cannot spell "WORLD" backwards Judgment and insight: poor/impulsive. IMPRESSIONS: Bipolar disorder type I, currently in manic episode Alcohol abuse Nicotine dependence PLAN: -At this time patient DOES meet criteria for inpatient psychiatric admission. -Patient DOES NOT have decision making capacity at this time and is unable to reason through and communicate/appreciate the risks, benefits and alternatives to treatment. -Would recommend the following medication changes/additions: Discontinue Zyprexa and will be starting patient on paliperidone by mouth 3 mg daily for mood stabilization/psychosis. Continue with lithium 1200 mg daily at bedtime for mood stabilization. -Haldol PRN for agitation/aggression. -Continue with CIOH protocol with when necessary Ativan for alcohol withdrawal. -Ordered lithium level -Continue 1:1 sitter for safety -Cannot leave AMA at this time. Patient will need a petition and certification if attempting to leave AMA. -Will continue to follow along if needed -When medically stable, patient is eligible for transfer to a psych bed when available. -Please contact with any questions. 10/30/19 13:37
--- NOTE | 2019-10-30 15:09 | P.PN ---
Subjective + Patient is awake and alert this morning. He does not have any complaints or concerns. No acute events overnight reported by nursing staff. Objective - Vital Signs Vital signs: Vital Signs Temp 98.2 F 10/29/19 22:40 Pulse 74 10/29/19 22:40 Resp 17 10/29/19 22:40 BP 142/76 10/29/19 22:40 Pulse Ox 97 10/29/19 22:40 Intake & Output 10/29/19 10/30/19 10/30/19 18:59 06:59 18:59 Output Total 450 Balance -450 Weight 113.398 kg 113.398 kg Output: Urine 450 - Labs CBC & Chem 7: 10/30/19 06:00 10/30/19 06:00 Labs: Abnormal Lab Results - Last 24 Hours (Table) 10/29/19 10/29/19 10/30/19 Range/Units 19:35 19:35 06:00 WBC 11.8 H 12.2 H (3.8-10.6) k/uL Neutrophils # 8.5 H (1.3-7.7) k/uL Chloride 109 H (98-107) mmol/L BUN <2 L (9-20) mg/dL 10/30/19 Range/Units 06:00 WBC (3.8-10.6) k/uL Neutrophils # (1.3-7.7) k/uL Chloride 108 H (98-107) mmol/L BUN 6 L (9-20) mg/dL Assessment and Plan Assessment: RLE laceration -Orthopedic surgery consulted and plan is for OR today for wound closure. IV cefazolin every 8 hours. -Wound care -Pain control Bipolar 1 disorder with psychosis and manic episode -1:1 observation for now -Psychiatry consulted and patient meets criteria for inpatient psychiatric admission when medically -C/w home [place] and Olanzapine doses EtOH abuse, with impending withdrawal -Thiamine, folate, multivitamin -Seizure, fall, aspiration precautions -CIWA protocol DVT prophylaxis -Hold off in setting of large RLE laceration CODE STATUS: Full Code Discussed with: Patient Anticipated discharge date: 1-[address]: MHU A total of 40 minutes was spent on the care of this complex patient more than 50% of the time was spent in counseling and care coordination.
[2019-10-30] MEDS: PALIPERIDONE 3 MG TAB.ER.24 PO SCH (16:48)
[2019-10-30] MEDS ORDERED: LITHIUM CARBONATE 300 MG CAP PO SCH (21:00)
[2019-10-30] MEDS ORDERED: OLANZapine 10 MG TAB PO SCH (21:00)
[2019-10-31] MEDS: LEVOTHYROXINE 50 MCG TAB PO SCH (04:21)
[2019-10-31 06:18] LABS: Basophils % (A) 0 %; Eosinophils # (A) 0.2 k/uL (0-0.7); Eosinophils % (A) 3 %; HCT 38.5 % (39.0-53.0); HGB 12.7 gm/dL (13.0-17.5); Lymphocytes % (A) 22 %; MCH 31.2 pg (25.0-35.0); MCV 94.5 fL (80.0-100.0); Mean Platelet Volume 7.5; Monocytes # (A) 0.6 k/uL (0-1.0); Monocytes % (A) 7 %; Neutrophils % (A) 65 %; Platelet Count 250 k/uL (150-450); RBC 4.08 m/uL (4.30-5.90); RDW 12.9 % (11.5-15.5); WBC 9.2 k/uL (3.8-10.6)
[2019-10-31] MEDS ORDERED: LACTATED RINGERS 1,000 ML IV SCH (09:00)
[2019-10-31] MEDS ORDERED: MIDAZOLAM 2 MG/2 ML VIAL ONE (10:09)
[2019-10-31] MEDS ORDERED: SUCCINYLCHOLINE CHLORIDE VIAL 200 MG/10 ML VIAL IV ONE (10:09)
[2019-10-31] MEDS ORDERED: PROPOFOL 10 MG/ML 20 ML VIAL IV ONE (10:09)
[2019-10-31] MEDS ORDERED: LIDOCAINE 1% INJ 10MG/ML (20 ML MDV) ONE (10:09)
[2019-10-31] MEDS ORDERED: IV FLUID CONTINUATION 1,000 ML IV ONE (10:14)
[2019-10-31] MEDS ORDERED: SODIUM CHLORIDE 0.9% 100 ML with ceFAZolin 2,000 MG IV ONE ×2 (10:30)
[2019-10-31] MEDS ORDERED: BUPIVACAINE (PF) 0.25% 30 ML VIAL SQ ONE (10:46)
--- NOTE | 2019-10-31 11:03 | P.OP ---
Date of Procedure: 10/31/19 Preoperative Diagnosis: Laceration right lower leg Postoperative Diagnosis: Laceration right lower leg, 30 cm Procedure(s) Performed: 1. Irrigation and debridement laceration right lower leg, 30 cm 2. Removal foreign body laceration right lower leg (glass) 3. Primary closure laceration right lower leg Anesthesia: RUSSELL Surgeon: Raul Jorgensen Estimated Blood Loss (ml): 10 Pathology: other (Cultures 2) Condition: stable Disposition: PACU Indications for Procedure: This is a 29-year-old gentleman who sustained a laceration to his right leg while breaking and entering. The laceration was originally irrigated in the emergency room and lightly sutured, but due to the size of laceration and the possibility of foreign body within the wound he was brought to the operating room for formal irrigation debridement and wound closure. Patient is aware to the best of his ability of what is going on and informed consent was obtained. Operative Findings: The operative findings are consistent with a large laceration of the right lower leg, 30 cm in length with foreign body within the wound which was consistent with pieces of glass. Description of Procedure: The patient was brought straight to the operating room from his hospital bed secondary to his mental health condition. In the operating room the patient's name was confirmed as well as the procedure based on the consent. A general anesthetic was administered by the anesthesia department. Tourniquet was placed on the right upper thigh and the right lower extremity was then prepped and draped in usual sterile fashion. A universal timeout was then performed which confirmed the patient's name, surgical site, ALLERGIES, and consent. The leg wound was inspected. There was found to be in the anterior medial aspect of his right lower leg approximately 30 cm in length. The wound edges appeared clean with no significant maceration of the tissue. The wound was then explored and multiple small pieces of glass were encountered and removed. There appeared to be no deep soft tissue damage. The wound was also cultured 2. Next, using pulsatile lavage, without cc of antibiotic solution was irrigated throughout the wound. Next the wound was then closed with 2-0 Vicryl followed by henna. 30 mL of quarter percent plain Marcaine were injected about the laceration edges. A sterile dressing was then applied and patient was transferred recovery room stable condition.
[2019-10-31] MEDS: THIAMINE 100 MG TAB PO SCH (11:34)
[2019-10-31] MEDS: PALIPERIDONE 3 MG TAB.ER.24 PO SCH (11:34)
[2019-10-31] MEDS: FOLIC ACID 1 MG TAB PO SCH (11:34)
[2019-10-31] MEDS: MULTIVITAMINS, THERA 1 EACH TAB PO SCH (11:34)
[2019-10-31 11:41] VITALS: RESP 17; TEMP 97.5
[2019-10-31 13:00] VITALS: BP 112/78; PULSE 81
--- NOTE | 2019-10-31 13:44 | P.DS ---
Providers Date of admission: 10/30/19 15:31 Expected date of discharge: 10/31/19 Attending physician: Jude Torres MD Consults: 10/29/19 20:48 Consult Physician Stat Consulting Provider: Raul Jorgensen Consult Reason/Comments: Large laceration to right lower leg, foreign bodies present Do you want consulting provider notified?: Already Contacted 10/30/19 05:20 Consult Physician Routine Consulting Provider: Drew Severino Consult Reason/Comments: manic Do you want consulting provider notified?: Yes, Notify in am Primary care physician: Stated None Hospital Course: The patient is a 29 yo M with a PMH of EtOH abuse and bipolar disorder who was brought in under police custody after the patient had broken into a [employer]. The patient was reported to have broken in via a [employer] window, suffering a large R leg laceration in the process. The patient was admitted to the hospital for further management of his medical problems noted below. RLE laceration -Seen and evaluated by orthopedic surgery. Status post irrigation/debridement/removal of a piece of glass/primary closure of laceration -Continue antibiotic with Keflex as directed by orthopedic -Wound care Bipolar 1 disorder with psychosis -Seen and evaluated by psychiatry EtOH abuse, with impending withdrawal -Thiamine, folate, multivitamin -No evidence of withdrawal at this time Patient will be discharged to inpatient psych. For further details about this hospitalization please refer to the electronic chart Patient Condition at Discharge: Good Plan - Discharge Summary New Discharge Prescriptions: New Cephalexin [Keflex] 500 mg PO Q6HR #56 cap Folic Acid 1 mg PO DAILY tab Haloperidol [Haldol] 2 mg PO TID PRN #10 tablet PRN Reason: Agitation Paliperidone [Invega] 3 mg PO DAILY tab.er.24 Thiamine [Vitamin B-1] 100 mg PO DAILY tab Continue Levothyroxine Sodium [Synthroid] 50 mcg PO DAILY [place] Carbonate 1,200 mg PO HS #120 cap OLANZapine 20 mg PO HS Discharge Medication List Levothyroxine Sodium [Synthroid] 50 mcg PO DAILY 09/23/19 [History] [place] Carbonate 1,200 mg PO HS #120 cap 10/01/19 [Rx] OLANZapine 20 mg PO HS 10/29/19 [History] Cephalexin [Keflex] 500 mg PO Q6HR #56 cap 10/31/19 [Rx] Folic Acid 1 mg PO DAILY tab 10/31/19 [Rx] Haloperidol [Haldol] 2 mg PO TID PRN #10 tablet 10/31/19 [Rx] Paliperidone [Invega] 3 mg PO DAILY tab.er.24 10/31/19 [Rx] Thiamine [Vitamin B-1] 100 mg PO DAILY tab 10/31/19 [Rx] Follow up Appointment(s)/Referral(s): None,Stated [Primary Care Provider] - 1-2 days Raul Jorgensen DO [Doctor of Osteopathic Medicine] - 2 Weeks (Patient may follow-up with Dr. Raul Jorgensen at [facility] in 2-3 weeks following discharge. ) Activity/Diet/Wound Care/Special Instructions: 1. Patient may weight-bear as tolerated on the right lower extremity 2. Keep dressing intact until follow-up appointment in the office in 2 weeks 3. Joel over the wound site of the right lower extremity to remain intact under the dressing and will be removed at his follow-up appointment 4. Keep dressing over the right lower extremity clean, dry, and intact 5. Encouraged elevate the right lower extremity for comfort support as needed Discharge Disposition: TRANSFER TO PSYCH HOSP/UNIT
== END 2019-10-31 15:30 | DRG 908 ==
LOC: EC 18:20 → 5NMEDONC 19:46 → OBSVTOIN 10-30 15:31
PROVIDERS: ADMIT Internal Medicine; ATTEND Internal Medicine
PROC: 0JQN0ZZ Repair Right Lower Leg Subcutaneous Tissue and Fascia, Open Approach (ICD-10-PCS; principal; 2019-10-31 12:30)
PROC: 0JCN0ZZ Extirpation of Matter from Right Lower Leg Subcutaneous Tissue and Fascia, Open Approach (ICD-10-PCS; principal; 2019-10-31 12:30)
DX: S81.821A Laceration with foreign body, right lower leg, initial encounter (principal); F31.2 Bipolar disorder, current episode manic severe with psychotic features; F10.129 Alcohol abuse with intoxication, unspecified; F17.200 Nicotine dependence, unspecified, uncomplicated; F41.9 Anxiety disorder, unspecified; Z83.3 Family history of diabetes mellitus; Z79.890 Hormone replacement therapy; Z79.899 Other long term (current) drug therapy; W25.XXXA Contact with sharp glass, initial encounter; W45.8XXA Other foreign body or object entering through skin, initial encounter; Z11.59 Encounter for screening for other viral diseases
CPT/HCPCS: 12004; 36415; 80048; 80053; 80178; 82075; 83735; 85025; 85027; 85610; 85730; 87070; 87075; 87205; 87635; 90471; 90715; 96365; 96372; 96375; 99284

== ENCOUNTER 2019-10-31 15:37 | Inpatient (IN) | payer MEDICARE, MEDICAID ==
[2019-10-31] MEDS ORDERED: MAG HYDROX/AL HYDROX/SIMETH 30 ML CUP PO PRN (15:48)
[2019-10-31] MEDS ORDERED: ACETAMINOPHEN TAB 325 MG TAB PO PRN (15:48)
[2019-10-31] MEDS ORDERED: MAGNESIUM HYDROXIDE 2,400 MG/10 ML CUP PO PRN (15:48)
[2019-10-31] MEDS ORDERED: HALOPERIDOL 2 MG TAB PO PRN (15:52)
[2019-10-31] MEDS: CEPHALEXIN 500 MG CAP PO SCH (17:27)
[2019-10-31] MEDS: LITHIUM CARBONATE 300 MG CAP PO SCH (20:57)
[2019-10-31] MEDS ORDERED: OLANZapine 10 MG TAB PO SCH (21:00)
[2019-11-01] MEDS: CEPHALEXIN 500 MG CAP PO SCH ×4 (03:50→17:43)
[2019-11-01] MEDS: LEVOTHYROXINE 50 MCG TAB PO SCH (06:06)
[2019-11-01] MEDS ORDERED: PALIPERIDONE 3 MG TAB.ER.24 PO SCH (09:00)
[2019-11-01] MEDS: THIAMINE 100 MG TAB PO SCH (09:36)
[2019-11-01] MEDS: FOLIC ACID 1 MG TAB PO SCH (09:36)
[2019-11-01] MEDS: NICOTINE 7MG/24HR PATCH TRANSDERM SCH (09:36)
--- NOTE | 2019-11-01 11:54 | P.HP ---
Psychiatric H&P - . H&P Date: 11/01/19 History & Physical: Allergies Allergy/AdvReac Type Severity Reaction Status Date / Time aripiprazole From Lisa AdvReac Swelling Verified 10/29/19 22:13 Vital Signs Temp 98.4 F 11/01/19 06:56 Pulse 56 L 11/01/19 06:56 Resp 14 11/01/19 06:56 BP 100/55 11/01/19 06:56 Pulse Ox 97 11/01/19 06:56 Intake & Output 10/31/19 11/01/19 11/01/19 18:59 06:59 18:59 Weight 86.3 kg 11/01/19 11:41 IDENTIFYING DATA: This patient is a 29-year-old male with a history of bipolar disorder currently on a court order for treatment and substance abuse who presented to the hospital in a manic state. HISTORY OF PRESENT ILLNESS: The patient initially presented to the hospital yesterday via EMS and with police escorts as patient sustained a right lower leg laceration after patient was allegedly trying to break into a hinduism and cut his leg in class. Patient was supposedly intoxicated in the ER and bleeding was controlled. Orthopedic surgery was consulted and evaluated patient and performed washout and removal of foreign bodies in patient's leg. Patient was recently discharged from the mental health unit on 09/2019 and was on lithium 1200 mg at night Zyprexa 5 mg daily +50 mg daily at bedtime along with Cogentin 2 mg daily when necessary. Patient was initially seen on the medical floors by fha underwriter for psychiatric evaluation and patient appeared to be tangential and illogical at times. He spoke about breaking into the hinduism and states that "I wanted to see how was like inside" and also claimed that he was a mistake. Patient did have a flight of ideas and racing thoughts and also spoke about w anting to "go to the racetrack, but I can't right now". He stated that he had poor sleep and poor concentration and patient was distractible during the interview. Patient was deemed appropriate for transfer to the mental health unit and placed back on Zyprexa and lithium and patient was seen once again this morning and appeared to just be waking up from his sleep. Patient appeared to be calmer and more logical and goal oriented during conversation. He is also more appropriate with fha underwriter. He admitted to "forgetting meds" at times and noncompliance. Patient was agreeable to continue on with long-acting injection and to have his dose of paliperidone increased. At this time patient denies any suicidal or homical ideations, intent or plan. Patient denies any auditory, visual hallucinations. Patients admits to using alcohol however an unknown quantity and cigarettes daily. PAST PSYCHIATRIC HISTORY: Patient has a history of bipolar disorder type I and was previously discharged from the mental unit on 09/2019. Patient was previously on lithium, Zyprexa and Cogentin and states that he has been taking his medications. Patient denies any psychiatric outpatient follow-up although patient should be following up with [facility]. PAST MEDICAL HISTORY: Thyroid disorder. ALLERGIES: as per EMR. CHEMICAL DEPENDENCY HISTORY: as per HPI. FAMILY PSYCHIATRIC/SUBSTANCE USE HISTORY: Father abuses alcohol and sister is a history of anxiety. SOCIAL HISTORY: Patient currently lives in an apartment with other people and states that he is currently unemployed and collecting Social Security. He is currently not and does not have any kids. MENTAL STATUS EXAM: General Appearance: Patient appears to be stated age is alert, more directable and appropriate today. Patient appears to have fair hygiene and grooming. Behavior: Patient is calmly lying in bed without any agitated behavior. Calmer today. Speech: Patient's speech is fluent and nonpressured. Mood/Affect: Patient reports their mood is "better", affect is congruent Suicidality/Homicidality: Patient denies having any suicidal or homicidal ideation intent or plan. Perceptions: Patient denies any visual hallucinations and denies any auditory hallucinations Though content/process: Patient is more logical and goal oriented. Does not endorse any delusions. Memory and concentration: AOX3, grossly intact for the purposes of this session. Can spell "WORLD" backwards Judgment and insight: poor/impulsive, mildly improving. STRENGTHS/WEAKNESSES: strength is that patient is resilient. Weakness is that patient has poor judgment and is impulsive INTELLECT: average IMPRESSIONS: Bipolar disorder type I, currently in manic episode Alcohol abuse Nicotine dependence PLAN: -Patient is admitted under court order to MHU for stabilization of psychiatric symptoms and safety. -Medications : Will start patient on paliperidone by mouth 3 mg twice a day for psychosis with plan to cross titrate with Zyprexa. Zyprexa decreased to 10 mg daily at bedtime for psychosis/mood stabilization. Continue lithium 1200 mg daily at bedtime for mood stabilization. -Haldol PRN for agitation/aggression -Waucoma level on 10/29 was below 0.3, indicating the patient was noncompliant with his medication. -CIWA protocol with Ativan PRN for ETOH withdrawal -Patient was counselled on substance abuse and desired to cut back on use -Patient was informed of the risks, benefits and side effects of the medication and patient verbally consented to taking the medications. -Internal Medicine consult to perform medical evaluation and physical. Patient is status post surgical washout and removal of foreign bodies. Patient to be continued on Keflex antibiotic post surgery. Will need to follow-up with orthopedic surgery in 2-3 weeks post discharge. -NRT - nicotine patch -SW on board for discharge planning. Encourage patient to participate in groups to work on coping skills. Will need to transition patient on to Invega Sustenna long-acting injection to ensure medication compliance prior to discharge. 11/01/19 11:45 11/01/19 11:53
--- NOTE | 2019-11-01 14:07 | P.HPMEDMHU ---
History of Present Illness H&P Date: 11/01/19 Chief Complaint: Medical evaluation 29-year-old male with a past medical history of hypothyroidism, bipolar disorder, and tobacco abuse who was recently on the medical unit secondary to leg wound that was debrided by surgery, the wound occurred after he was trying to break into a yazidism. The patient denied having fevers, chills, cough, pain, shortness of breath. No nausea, vomiting or diarrhea. No recent illness. Review of Systems Complete review of system performed, pertinent positives per HPI, otherwise negative Past Medical History Past Medical History: Thyroid Disorder History of Any Multi-Drug Resistant Organisms: None Reported Past Surgical History: No Surgical Hx Reported Additional Past Surgical History / Comment(s): Fracture in left wrist repaired as a child Past Anesthesia/Blood Transfusion Reactions: No Reported Reaction Past Psychological History: Anxiety, Bipolar Smoking Status: Current every day smoker Past Alcohol Use History: None Reported Additional Past Alcohol Use History / Comment(s): Patient is a smoker of one pack per day since he was 17 years of age. He does have history of marijuana use and Adderall abuse but he denies any recently. Past Drug Use History: None Reported Additional Drug Use History / Comment(s): Alcohol- Pt states that he drank one glass of wine yesterday, Pt denies any daily alcohol use. - Past Family History Father Additional Family Medical History / Comment(s): Father is alive at age 52 with history of alcohol abuse. Mother History Unknown: Yes Family Medical History: Diabetes Mellitus Additional Family Medical History / Comment(s): Mother is alive at age 51 with history of diabetes. Patient does not have any brothers. Patient has 2 sisters and one has anxiety. Medications and Allergies Home Medications Medication Instructions Recorded Confirmed Type Levothyroxine Sodium [Synthroid] 50 mcg PO DAILY 09/23/19 10/31/19 History Ong Carbonate 1,200 mg PO HS #120 cap 10/01/19 10/29/19 Rx OLANZapine 20 mg PO HS 10/29/19 10/31/19 History Cephalexin [Keflex] 500 mg PO Q6HR #56 cap 10/31/19 10/31/19 Rx Folic Acid 1 mg PO DAILY tab 10/31/19 10/31/19 Rx Haloperidol [Haldol] 2 mg PO TID PRN #10 tablet 10/31/19 10/31/19 Rx Paliperidone [Invega] 3 mg PO DAILY tab.er.24 10/31/19 10/31/19 Rx Thiamine [Vitamin B-1] 100 mg PO DAILY tab 10/31/19 10/31/19 Rx Allergies Allergy/AdvReac Type Severity Reaction Status Date / Time aripiprazole [From Abilify] AdvReac Swelling Verified 11/01/19 12:46 Physical Exam Vitals: Vital Signs Temp Pulse Pulse Resp BP BP Pulse Ox 11/01/19 06:56 98.4 F 56 L 14 100/55 97 10/31/19 21:00 97.8 F 10/31/19 15:38 98.6 F 103 H 14 123/77 98 Intake and Output 10/31/19 11/01/19 11/01/19 22:59 06:59 14:59 Other: Weight 86.3 kg 83.6 kg Constitutional: No acute distress, conversant, pleasant Eyes:Anicteric sclerae, moist conjunctiva, no lid-lag, PERRLA, ENMT: Oropharynx clear, no erythema, exudates Neck: Supple, FROM, no masses, or JVD, No carotid bruits, No thyromegaly Lungs: Clear to auscultation, Clear to percussion, Normal respiratory effort, no accessory muscle use Cardiovascular: Heart regular in rate and rhythm, No murmurs, gallops, or rubs, No peripheral edema Abdominal: Soft, Nontender, no guarding, rebound or rigidity, Normoactive bowel sounds, No hepatomegaly, No splenomegaly, No palpable mass Skin: Normal temperature, tone, texture, turgor, no induration, No subcutaneous nodules, No rash, lesions, No ulcers Extremities: No digital cyanosis, No clubbing, Pedal pulses intact and symmetrical, Radial pulses intact and symmetrical, No calf tenderness Psychiatric: Alert and oriented to person, place and time, appropriate affect, intact judgement Neuro: Muscles Strength 5/5 in all 4 extremities, Sensation to light touch grossly present throughout, Cranial nerves II-XII grossly intact, no focal sensory deficits Cranial Nerve Examination - Cranial Nerves Cranial Nerve II- Optic: Intact Cranial Nerve III- Oculomotor: Intact Cranial Nerve IV- Trochlear: Intact Cranial Nerve V- Trigeminal: Intact Cranial Nerve - Abducens: Intact Cranial Nerve VII- Facial: Intact Cranial Nerve VIII- Auditory: Intact Cranial Nerve IX- Glossopharyngeal: Intact Cranial Nerve X- Vagus: Intact Cranial Nerve XI- Accessory: Intact Cranial Nerve XII- Hypoglossal: Intact Thrombosis Risk Factor Assmnt - Choose All That Apply Any of the Below Risk Factors Present?: No Other Risk Factors: No Other congenital or acquired thrombophilia - If yes, enter type in comment: No Thrombosis Risk Factor Assessment Level: Very Low Risk Assessment and Plan Plan: Hypothyroidism -Synthroid Tobacco abuse -Nicotine replacement -Cessation Leg wound -Dressing changes Psychosis -Your psych management
[2019-11-01] MEDS: PALIPERIDONE 3 MG TAB.ER.24 PO SCH (20:49)
[2019-11-01] MEDS: LITHIUM CARBONATE 300 MG CAP PO SCH (20:49)
[2019-11-01] MEDS ORDERED: OLANZapine 10 MG TAB PO SCH (21:00)
[2019-11-02] MEDS: CEPHALEXIN 500 MG CAP PO SCH ×4 (00:12→17:43)
[2019-11-02] MEDS: LEVOTHYROXINE 50 MCG TAB PO SCH (07:00)
[2019-11-02] MEDS: NICOTINE 7MG/24HR PATCH TRANSDERM SCH (09:29)
[2019-11-02] MEDS: FOLIC ACID 1 MG TAB PO SCH (09:29)
[2019-11-02] MEDS: PALIPERIDONE 3 MG TAB.ER.24 PO SCH ×2 (09:29→20:40)
[2019-11-02] MEDS: THIAMINE 100 MG TAB PO SCH (09:29)
--- NOTE | 2019-11-02 10:59 | P.PN ---
Progress Note - Text Progress Note Date: 11/02/19 Interval history: Patient was seen [wandering the hallways] and was directable and agreeable to speak with telegraphic typewriter operator chief. Patient appeared to have a calmer demeanor today and was more appropriate with telegraphic typewriter operator chief. He spoke about going some groups and trying to participate as best as he can. Patient also spoke about his drawings that are displayed in his room and states that "I like and sci-fi stuff not what inspires me". He states that he's been drawing for majority of his life as that is his hobby. Patient is more logical and goal oriented during conversation and does not have any pressured speech, is not delusional today. He has a fair appetite and states that he slept well last night. Patient is agreeable to be switched on to Invega Sustenna long-acting injection and titrated off Zyprexa. At this time patient denies any suicidal or homicidal ideations intent or plan. Denies any Auditory or visual hallucinations. Patient denies any side effects from the medications and has been compliant with meds. Mental status exam: General Appearance: Patient appears to be stated age is alert, more directable and appropriate today. Patient appears to have fair hygiene and grooming. Behavior: Patient is calmly lying in bed without any agitated behavior. Calm today. Appropriate. Speech: Patient's speech is fluent and nonpressured. Mood/Affect: Patient reports their mood is "good", affect is congruent Suicidality/Homicidality: Patient denies having any suicidal or homicidal ideation intent or plan. Perceptions: Patient denies any visual hallucinations and denies any auditory hallucinations Though content/process: Patient is more logical and goal oriented. Does not endorse any delusions or paranoia. Memory and concentration: AOX3, grossly intact for the purposes of this session. Judgment and insight: mildly improving. Assessment/Plan: Continue with current diagnosis. Patient continues to meet criteria for inpatient psychiatric admission for symptom stabilization and safety. Will continue titrating off Zyprexa, decreased to 5 mg daily at bedtime and continue paliperidone by mouth 3 mg twice a day for psychosis/mood stabilization. Patient is agreeable to be placed on Invega Sustenna long-acting injection. Continue with lithium 1200 mg nightly for mood stabilization. Monitor for medication compliance and for any psychotropic medication side effects. Will continue to monitor ongoing response to treatment. Encouraged participation in milieu. Patient is status post surgical washout and removal of foreign bodies. Patient to be continued on Keflex antibiotic post surgery. Will need to follow-up with orthopedic surgery in 2-3 weeks post discharge.
[2019-11-02] MEDS: LITHIUM CARBONATE 300 MG CAP PO SCH (20:40)
[2019-11-02] MEDS ORDERED: OLANZapine 5 MG TAB PO SCH (21:00)
[2019-11-03] MEDS: LEVOTHYROXINE 50 MCG TAB PO SCH (05:55)
[2019-11-03] MEDS: CEPHALEXIN 500 MG CAP PO SCH ×5 (05:55→23:00)
[2019-11-03] MEDS: THIAMINE 100 MG TAB PO SCH (09:12)
[2019-11-03] MEDS: PALIPERIDONE 3 MG TAB.ER.24 PO SCH ×2 (09:12→20:45)
[2019-11-03] MEDS: FOLIC ACID 1 MG TAB PO SCH (09:12)
[2019-11-03] MEDS: NICOTINE 7MG/24HR PATCH TRANSDERM SCH (09:12)
--- NOTE | 2019-11-03 11:30 | P.PN ---
Progress Note - Text Interval history: The patient is found in the hallway he follows me to an interview room. I was able to review the psychiatric evaluation as well as an outpatient medication review note. The patient is history of bipolar 1 disorder with history of dione and psychosis. It appears that he had injured his leg by kicking through a glass window causing significant injury requiring surgery. Ultimately was admitted to the mental health unit for stabilization of his mood symptoms and psychosis. He has been placed back on lithium carbonate 1200 mg at bedtime. He is being cross tapered off of Zyprexa and onto invega area and I assume the intention is to use Invega Sustenna. The patient indicates that he is doing well. He does minimize the events precipitating the admission. He indicates he is going to groups he indicates he is eating and sleep has been stable. Mental status exam: The patient is alert he is pleasant and cooperative he is dressed in his own clothing hygiene grooming adequate. He is carrying a cup of water. He indicates his mood is better he is reporting no hopelessness thinking or any suicidal ideation intent or plan. He is endorsing no symptoms of psychosis however he he may be underreporting. He demonstrates no verbal or physical aggressiveness he demonstrates no involuntary positive movements. Insight and judgment appear to be impaired. Again he provides a very cursory synopsis of the events causing the admission. His report also does not appear to be factual at times. Plan: The patient will continue on his current psychotropic medications I will discontinue the Zyprexa. We will monitor him for safety and encourage appropriate participation in the milieu. Vital signs reviewed. He requires continued psychiatric hospitalization.
[2019-11-03] MEDS: LITHIUM CARBONATE 300 MG CAP PO SCH (20:46)
[2019-11-04] MEDS: LEVOTHYROXINE 50 MCG TAB PO SCH (06:08)
[2019-11-04] MEDS: CEPHALEXIN 500 MG CAP PO SCH ×4 (06:08→23:09)
[2019-11-04] MEDS: FOLIC ACID 1 MG TAB PO SCH (10:06)
[2019-11-04] MEDS: THIAMINE 100 MG TAB PO SCH (10:06)
[2019-11-04] MEDS: NICOTINE 7MG/24HR PATCH TRANSDERM SCH (10:06)
[2019-11-04] MEDS: PALIPERIDONE 3 MG TAB.ER.24 PO SCH ×2 (10:06→22:05)
--- NOTE | 2019-11-04 11:04 | P.PN ---
Progress Note - Text Interval history: The patient is found in his room he follows me to an interview room. He indicates that he is doing well. He has no questions or concerns regarding his medications. We discussed transitioning him to the Invega Sustenna injection and he is agreeable. He is aware that he will be going to the [facility] upon discharge. He states he has been having phone conversations with his mother and they have been supportive. He intermittently participates in groups. Mental status exam: The patient is alert he does not of bed he is a disheveled appearance he is dressed in his own clothing. The wound on his right lower extremity is bandaged. Eye contact is appropriate. He is pleasant cooperative and easily directed. He indicates his mood is improving. He demonstrates no verbal or physical aggressiveness she demonstrates no involuntary repetitive movements. He reports no suicidal or homicidal ideation intent or plan. He reports expensing no auditory or visual hallucinations. Specifically he denies any command auditory hallucinations. There is no observed evidence of psychosis during our interaction. He demonstrates no tangential thinking loose associations or flight of ideas. He does not appear to be hypomanic or manic. Insight and judgment improving. He participated in the discussion regarding his medications appropriately. Plan: The patient will continue on his current psychotropic medication we will initiate Invega Sustenna 234 mg IM today. We will draw a lithium level BUN/creatinine creatinine tomorrow. If he demonstrates continued improvement in appears clinically stable we may consider discharging him in the next 1-2 days. Social work will speak with the patient's mother for collateral information.
[2019-11-04] MEDS ORDERED: PALIPERIDONE IM 234 MG/1.5 ML SYG IM ONE (12:00)
[2019-11-04] MEDS: LITHIUM CARBONATE 300 MG CAP PO SCH (22:04)
[2019-11-05] MEDS: LEVOTHYROXINE 50 MCG TAB PO SCH (06:21)
[2019-11-05] MEDS: CEPHALEXIN 500 MG CAP PO SCH ×2 (06:21→11:52)
[2019-11-05 06:53] VITALS: BP 104/59; PULSE 66; RESP 14; TEMP 97.9
[2019-11-05 07:40] LABS: African American GFR (CKD) >90 (>60 ml/min/1.73 sqM); Blood Urea Nitrogen 10 mg/dL (9-20); Non-African American GFR(CKD) >90 (>60 ml/min/1.73 sqM)
--- NOTE | 2019-11-05 09:34 | P.DS ---
Providers Date of admission: 10/31/19 15:37 Expected date of discharge: 11/05/19 Attending physician: Collin Pereyra Consults: 10/31/19 15:48 Consult Physician Routine Consulting Provider: Ananya Pettit Consult Reason/Comments: Follow up H & P Do you want consulting provider notified?: Yes Primary care physician: Collin Pereyra - Discharge Diagnosis(es) (1) Bipolar I disorder, recurrent manic episode Current Visit: No Status: Chronic Priority: High Hospital Course: Brief summary admission note: This patient is a 29-year-old male who was admitted to the mental health unit with symptoms of dione and psychosis. The patient has a known history of bipolar 1 disorder. He presented to the hospital with a right lower extremity laceration after the patient attempted to break into a shinto. Apparently he was intoxicated and tried to kick through a window. Surgery was consulted to repair the wound. The patient was noted to have flight of ideas thoughts were disorganized he reported poor sleep or concentration and he was found to be very distractible. After being medically cleared he was subsequently admitted to the mental health unit. He was initially evaluated by Dr. Severino. Summary of hospital course: The patient was admitted to the mental health unit voluntarily. The patient was evaluated by Dr. Severino initially. The patient was continued on his lithium carbonate 1200 mg at bedtime and there was a cross titration off of Zyprexa onto invega. The patient has done quite well on the mental health unit his symptoms of dione have resolved he is demonstrating no symptoms of psychosis. We completed the titration off of Zyprexa. He received his first injection of Invega Sustenna yesterday of 234 mg. The patient was seen by internal medicine for routine history and physical exam. The patient was seen by social work for completion of a psychosocial assessment and for discharge planning purposes. The patient's mother was involved in discharge planning. The patient is scheduled to go to [facility] upon discharge. The p atient has demonstrated no agitated behavior he has selectively attended groups more so in the afternoon. Mental status exam: The patient is alert he is dressed in his own clothing hygiene grooming adequate. Eye contact is appropriate. Speech is fluent spontaneous nonpressured. He is pleasant and cooperative throughout the interview and has been easy to direct. He reports no hopelessness thinking he reports no suicidal ideation intent or plan. He is demonstrating no tangential thinking loose associations or flight of ideas. He is endorsing no auditory or visual hallucinations he is endorsing no command auditory hallucinations. He is endorsing no specific delusions. There is no observed evidence of hypomania dione or psychosis. Cognitively he remains grossly intact insight and judgment grossly intact. He demonstrates no verbal or physical aggressiveness he demonstrates no involuntary repetitive movements. Affect is appropriately expressive. Impressions 1.: Bipolar 1 disorder most recent manic Plan: The patient will be discharged mental health unit today he will reside at the [facility]. He will continue on lithium carbonate 1200 mg at bedtime, he will continue on invega 3 mg daily for the next week until he receives his second injection of Invega Sustenna 156 mg which is due on or before 11/11/2019. A lithium level was drawn this morning we are awaiting the result BUN/creatinine creatinine are within normal limits. He will continue on the Keflex through November 13. He will follow up with orthopedics as an outpatient. He is instructed to abstain from any use of alcohol marijuana or illicit drugs is use can precipitate symptoms of dione and psychosis and elevate his safety risk. He does not wish to participate in inpatient chemical dependency treatment at this time. At this time there is no imminent safety risk he is appropriate for continued cares an outpatient he will follow up with [facility]. He is instructed to return to the hospital with any acute safety concerns. Patient Condition at Discharge: Stable Plan - Discharge Summary Discharge Rx Participant: No New Discharge Prescriptions: New Nicotine 7Mg/24Hr Patch [Habitrol] 1 patch TRANSDERM DAILY #14 patch Paliperidone IM [Invega Sustenna] 156 mg IM ONCE #1 syr Continue Levothyroxine Sodium [Synthroid] 50 mcg PO DAILY Paliperidone [Invega] 3 mg PO DAILY #6 tab.er.24 Cephalexin [Keflex] 500 mg PO Q6HR #40 cap [place] Carbonate 1,200 mg PO HS #60 cap Discontinued OLANZapine 20 mg PO HS Folic Acid 1 mg PO DAILY tab Haloperidol [Haldol] 2 mg PO TID PRN #10 tablet PRN Reason: Agitation Thiamine [Vitamin B-1] 100 mg PO DAILY tab Discharge Medication List Levothyroxine Sodium [Synthroid] 50 mcg PO DAILY 09/23/19 [History] Cephalexin [Keflex] 500 mg PO Q6HR #40 cap 05/13/20 [Rx] [place] Carbonate 1,200 mg PO HS #60 cap 11/05/19 [Rx] Nicotine 7Mg/24Hr Patch [Habitrol] 1 patch TRANSDERM DAILY #14 patch 11/05/19 [Rx] Paliperidone IM [Invega Sustenna] 156 mg IM ONCE #1 syr 11/05/19 [Rx] Paliperidone [Invega] 3 mg PO DAILY #6 tab.er.24 11/05/19 [Rx] Activity/Diet/Wound Care/Special Instructions: Activity and diet as tolerated. Avoid the use of street drugs and alcohol. Take all medications as prescribed. When you are in need of refills on your medications please contact your medical provider and/or outpatient psychiatrist to have this done. Please go to scheduled outpatient appointment for aftercare treatment. If symptoms return or become worse, call the crisis line at and/or go to the nearest emergency room for evaluation.
[2019-11-05 09:44] LABS: Lithium 0.8 mmol/L
[2019-11-05] MEDS: PALIPERIDONE 3 MG TAB.ER.24 PO SCH (10:29)
[2019-11-05] MEDS: THIAMINE 100 MG TAB PO SCH (10:29)
[2019-11-05] MEDS: NICOTINE 7MG/24HR PATCH TRANSDERM SCH (10:29)
[2019-11-05] MEDS: FOLIC ACID 1 MG TAB PO SCH (10:29)
== END 2019-11-05 11:58 | disposition home or self-care (01) | DRG 885 ==
LOC: 3MHU 15:37
PROVIDERS: ADMIT Psychiatry & Neurology Psychiatry; ATTEND Psychiatry & Neurology Psychiatry
DX: F31.9 Bipolar disorder, unspecified (principal); E07.9 Disorder of thyroid, unspecified; F10.10 Alcohol abuse, uncomplicated; F17.200 Nicotine dependence, unspecified, uncomplicated; S81.811A Laceration without foreign body, right lower leg, initial encounter; Z88.8 Allergy status to other drugs, medicaments and biological substances; Z81.8 Family history of other mental and behavioral disorders; Z56.0 Unemployment, unspecified; Z91.19 Patient's noncompliance with other medical treatment and regimen
CPT/HCPCS: 80178; 82565; 84520

== ENCOUNTER 2021-11-09 19:40 | Inpatient (IN) | payer BC, MEDICARE, OTHER ==
--- NOTE | 2021-11-09 20:30 | ED ---
Psych HPI - General Source: patient, EMS Mode of arrival: EMS <Shelby Harrington - Last Filed: 11/09/21 22:52> <Steven Lancaster - Last Filed: 11/10/21 03:05> - General Chief Complaint: Psychiatric Symptoms Stated Complaint: Mental Health Time Seen by Provider: 11/09/21 20:05 - History of Present Illness Initial Comments: Patient is a 31-year-old male who presents to the emergency Department petitioned by his mother for altered mental status. Patient has history of bipolar 1 disorder. According to patient's mother patient has not been taking care of himself and has been acting differently. She states in February patient has lives alone in his apartment. She states patient has-been doing well but admitted to depression about week and half ago. Patient states she had [facility] check on him. At this time there was question if patient has been taking his medication. Patient takes lithium and vraylar. Patient's mother states she has been with patient 15/01 for the past couple days. She states patient has showed eccentric behavior. Patient has not been sleeping, has been walking on the road, and has gotten out of the car when she was at a stop sign. She has concern for safety. She believes he is having a bipolar 1 manic episode. She seek psychiatric evaluation and potentially admission as she questions if patient is at home. Patient has no concerns. He is a questionable historian. He distracted and has slow responses during our conversation. There are disorganized thoughts. He states he is taking his lithium and vraylar as directed. Denies suicidal or homicidal ideation. Denies visual and auditory hallucination. He denies fever, chills, chest pain, shortness of breath, abdominal pain, nausea, vomiting, burning with urination. (Shelby Harrington) - Related Data Home Medications Medication Instructions Recorded Confirmed Levothyroxine Sodium [Synthroid] 50 mcg PO DAILY 09/23/19 11/09/21 Albuterol Inhaler [Ventolin Hfa 2 puff INHALATION RT-QID PRN 11/09/21 11/09/21 Inhaler] Cariprazine HCl [Vraylar] 6 mg PO HS 11/09/21 11/09/21 Previous Rx's Medication Instructions Recorded [place] Carbonate 1,200 mg PO HS #60 cap 11/05/19 Allergies Allergy/AdvReac Type Severity Reaction Status Date / Time aripiprazole [From [facility]il[facility]] AdvReac Swelling Verified 11/07/21 19:08 Review of Systems ROS Other: All systems not noted in ROS Statement are negative. <Shelby Harrington - Last Filed: 11/09/21 22:52> ROS Other: All systems not noted in ROS Statement are negative. <Steven Lancaster - Last Filed: 11/10/21 03:05> ROS Statement: Those systems with pertinent positive or pertinent negative responses have been documented in the HPI. Past Medical History Past Medical History: Thyroid Disorder History of Any Multi-Drug Resistant Organisms: None Reported Past Surgical History: No Surgical Hx Reported Additional Past Surgical History / Comment(s): Fracture in left wrist repaired as a child Past Anesthesia/Blood Transfusion Reactions: No Reported Reaction Past Psychological History: Anxiety, Bipolar Smoking Status: Current every day smoker Past Alcohol Use History: None Reported Past Drug Use History: None Reported - Past Family History Father Additional Family Medical History / Comment(s): Father is alive at age 52 with history of alcohol abuse. Mother History Unknown: Yes Family Medical History: Diabetes Mellitus Additional Family Medical History / Comment(s): Mother is alive at age 51 with history of diabetes. Patient does not have any brothers. Patient has 2 sisters and one has anxiety. <Shelby Harrington - Last Filed: 11/09/21 22:52> General Exam Limitations: altered mental status <Shelby Harrington - Last Filed: 11/09/21 22:52> General appearance: alert, in no apparent distress Head exam: Present: atraumatic, normocephalic, normal inspection Eye exam: Present: normal appearance, PERRL, EOMI. Absent: scleral icterus, conjunctival injection, periorbital swelling ENT exam: Present: normal exam, mucous membranes moist Neck exam: Present: normal inspection. Absent: tenderness, meningismus, lymphadenopathy Respiratory exam: Present: normal lung sounds bilaterally. Absent: respiratory distress, wheezes, rales, rhonchi, stridor Cardiovascular Exam: Present: regular rate, normal rhythm, normal heart sounds. Absent: systolic murmur, diastolic murmur, rubs, gallop, clicks GI/Abdominal exam: Present: soft, normal bowel sounds. Absent: distended, tenderness, guarding, rebound, rigid Extremities exam: Present: normal inspection, full ROM, normal capillary refill. Absent: tenderness, pedal edema, joint swelling, calf tenderness Back exam: Present: normal inspection Neurological exam: Present: alert, oriented X3, CN II-XII intact Psychiatric exam: Present: normal affect, normal mood Skin exam: Present: warm, dry, intact, normal color. Absent: rash <Steven Lancaster - Last Filed: 11/10/21 03:05> Course <Steven Lancaster - Last Filed: 11/10/21 03:05> Vital Signs 11/09/21 19:59 Temperature 97.9 F Pulse Rate 79 Respiratory 16 Rate Blood Pressure 181/90 O2 Sat by Pulse 96 Oximetry - Reevaluation(s) Reevaluation #1: 11/10/21 03:04 medical record is reviewed (Steven Lancaster) Reevaluation #2: 11/10/21 03:04 medically clear for psychiatric evaluation (Steven Lancaster) Medical Decision Making - Lab Data Result diagrams: 11/09/21 21:42 <Shelby Harrington - Last Filed: 11/09/21 22:52> - Lab Data Result diagrams: 11/09/21 21:42 11/09/21 22:56 <Steven Lancaster - Last Filed: 11/10/21 03:05> - Medical Decision Making This is a 31-year-old male who presents via petition from his mother for altered mental status. Patient was petitioned by his mother who has concern for bipolar one manic episode. Thorough history and examination were performed. During my exam patient has disorganized thoughts. He is easily distracted and apathetic. Denies suicidal or homicidal ideation. My physical exam is unremarkable. Alcohol breathalyzer is 0. Basic labs, lithium level, urine drug screen, and urinalysis were ordered. Patient is cleared from a medical standpoint. A little after 10:00 PM patient runs out of the emergency department. The police were able to find patient soon after and he was escorted back to the emergency room where he will be closely observed. (Shelby Harrington) 31 male who was seen in however psychiatry, patient will be admitted for psychiatric evaluation and treatment (Steven Lancaster) - Lab Data Lab Results 11/09/21 11/09/21 11/09/21 Range/Units 21:20 21:42 21:42 WBC 14.9 H (3.8-10.6) k/uL RBC 4.88 (4.30-5.90) m/uL Hgb 15.0 (13.0-17.5) gm/dL Hct 45.6 (39.0-53.0) % MCV 93.4 (80.0-100.0) fL MCH 30.8 (25.0-35.0) pg MCHC 32.9 (31.0-37.0) g/dL RDW 13.2 (11.5-15.5) % Plt Count 331 (150-450) k/uL MPV 9.2 Neutrophils % 73 % Lymphocytes % 18 % Monocytes % 6 % Eosinophils % 1 % Basophils % 0 % Neutrophils # 10.9 H (1.3-7.7) k/uL Lymphocytes # 2.7 (1.0-4.8) k/uL Monocytes # 0.8 (0-1.0) k/uL Eosinophils # 0.2 (0-0.7) k/uL Basophils # 0.1 (0-0.2) k/uL Sodium (137-145) mmol/L Potassium (3.5-5.1) mmol/L Chloride (98-107) mmol/L Carbon Dioxide (22-30) mmol/L Anion Gap mmol/L BUN (9-20) mg/dL Creatinine (0.66-1.25) mg/dL Est GFR (CKD-EPI)AfAm (>60 ml/min/1.73 sqM) Est GFR (CKD-EPI)NonAf (>60 ml/min/1.73 sqM) Glucose (74-99) mg/dL Calcium (8.4-10.2) mg/dL Total Bilirubin (0.2-1.3) mg/dL AST (17-59) U/L ALT (4-49) U/L Alkaline Phosphatase (38-126) U/L Total Protein (6.3-8.2) g/dL Albumin (3.5-5.0) g/dL Urine Color Light Yellow Urine Appearance Clear (Clear) Urine pH 7.0 (5.0-8.0) Ur Specific [place] 1.005 (1.001-1.035) Urine Protein Negative (Negative) Urine Glucose (UA) Negative (Negative) Urine Ketones Negative (Negative) Urine Blood Negative (Negative) Urine Nitrite Negative (Negative) Urine Bilirubin Negative (Negative) Urine Urobilinogen <2.0 (<2.0) mg/dL Ur Leukocyte Esterase Small H (Negative) Urine RBC 2 (0-5) /hpf Urine WBC 4 (0-5) /hpf Urine Opiates Screen (NotDetected) Ur Oxycodone Screen (NotDetected) Urine Methadone Screen (NotDetected) Ur Propoxyphene Screen (NotDetected) Ur Barbiturates Screen (NotDetected) U Tricyclic Antidepress (NotDetected) Ur Phencyclidine Scrn (NotDetected) Ur Amphetamines Screen (NotDetected) U Methamphetamines Scrn (NotDetected) U Benzodiazepines Scrn (NotDetected) [place] mmol/L Urine Cocaine Screen (NotDetected) U Marijuana (THC) Screen (NotDetected) Coronavirus (PCR) Not Detected (Not Detectd) 11/09/21 11/09/21 Range/Units 21:45 22:56 WBC (3.8-10.6) k/uL RBC (4.30-5.90) m/uL Hgb (13.0-17.5) gm/dL Hct (39.0-53.0) % MCV (80.0-100.0) fL MCH (25.0-35.0) pg MCHC (31.0-37.0) g/dL RDW (11.5-15.5) % Plt Count (150-450) k/uL MPV Neutrophils % % Lymphocytes % % Monocytes % % Eosinophils % % Basophils % % Neutrophils # (1.3-7.7) k/uL Lymphocytes # (1.0-4.8) k/uL Monocytes # (0-1.0) k/uL Eosinophils # (0-0.7) k/uL Basophils # (0-0.2) k/uL Sodium 142 (137-145) mmol/L Potassium 3.8 (3.5-5.1) mmol/L Chloride 108 H (98-107) mmol/L Carbon Dioxide 27 (22-30) mmol/L Anion Gap 7 mmol/L BUN 5 L (9-20) mg/dL Creatinine 0.87 (0.66-1.25) mg/dL Est GFR (CKD-EPI)AfAm >90 (>60 ml/min/1.73 sqM) Est GFR (CKD-EPI)NonAf >90 (>60 ml/min/1.73 sqM) Glucose 115 H (74-99) mg/dL Calcium 9.5 (8.4-10.2) mg/dL Total Bilirubin 0.2 (0.2-1.3) mg/dL AST 36 (17-59) U/L ALT 33 (4-49) U/L Alkaline Phosphatase 62 (38-126) U/L Total Protein 7.0 (6.3-8.2) g/dL Albumin 4.4 (3.5-5.0) g/dL Urine Color Urine Appearance (Clear) Urine pH (5.0-8.0) Ur Specific [place] (1.001-1.035) Urine Protein (Negative) Urine Glucose (UA) (Negative) Urine Ketones (Negative) Urine Blood (Negative) Urine Nitrite (Negative) Urine Bilirubin (Negative) Urine Urobilinogen (<2.0) mg/dL Ur Leukocyte Esterase (Negative) Urine RBC (0-5) /hpf Urine WBC (0-5) /hpf Urine Opiates Screen Not Detected (NotDetected) Ur Oxycodone Screen Not Detected (NotDetected) Urine Methadone Screen Not Detected (NotDetected) Ur Propoxyphene Screen Not Detected (NotDetected) Ur Barbiturates Screen Not Detected (NotDetected) U Tricyclic Antidepress Not Detected (NotDetected) Ur Phencyclidine Scrn Not Detected (NotDetected) Ur Amphetamines Screen Not Detected (NotDetected) U Methamphetamines Scrn Not Detected (NotDetected) U Benzodiazepines Scrn Not Detected (NotDetected) [place] 0.5 mmol/L Urine Cocaine Screen Not Detected (NotDetected) U Marijuana (THC) Screen Not Detected (NotDetected) Coronavirus (PCR) (Not Detectd) Disposition <Shelby Harrington - Last Filed: 11/09/21 22:52> Is patient prescribed a controlled substance at d/c from ED?: No <Steven Lancaster - Last Filed: 11/10/21 03:05> Clinical Impression: Suicidal ideation, Psychosis, Bipolar I disorder, recurrent manic episode, Acute anxiety, Poor compliance with medication Disposition: TRANSFER TO PSYCH HOSP/UNIT Condition: Fair Referrals: None,Stated [Primary Care Provider] - 1-2 days
[2021-11-09 21:52] LABS: Appearance,Urine Clear (Clear); Bilirubin,Urine Negative (Negative); Blood,Urine Negative (Negative); Color,Urine Light Yellow; Glucose,Urine (UA) Negative (Negative); Ketones,Urine Negative (Negative); Leukocyte Esterase,Urine Small (Negative); Nitrite,Urine Negative (Negative); Protein,Urine Negative (Negative); RBC,Urine 2 /hpf (0-5); Specific Gravity,Urine 1.005 (1.001-1.035); Urobilinogen,Urine <2.0 mg/dL (<2.0); WBC,Urine 4 /hpf (0-5)
[2021-11-09 22:07] LABS: Basophils # (A) 0.1 k/uL (0-0.2); Basophils % (A) 0 %; Eosinophils # (A) 0.2 k/uL (0-0.7); Eosinophils % (A) 1 %; HCT 45.6 % (39.0-53.0); Lymphocytes # (A) 2.7 k/uL (1.0-4.8); Lymphocytes % (A) 18 %; MCH 30.8 pg (25.0-35.0); MCHC 32.9 g/dL (31.0-37.0); MCV 93.4 fL (80.0-100.0); Mean Platelet Volume 9.2; Monocytes # (A) 0.8 k/uL (0-1.0); Monocytes % (A) 6 %; Neutrophils # (A) 10.9 k/uL (1.3-7.7); Neutrophils % (A) 73 %; Platelet Count 331 k/uL (150-450); RBC 4.88 m/uL (4.30-5.90); RDW 13.2 % (11.5-15.5); WBC 14.9 k/uL (3.8-10.6)
[2021-11-09 22:34] LABS: Amphetamine Screen,Urine Not Detected (NotDetected); Barbiturate Screen,Urine Not Detected (NotDetected); Benzodiazepines Screen,Urine Not Detected (NotDetected); Cocaine Screen,Urine Not Detected (NotDetected); Methadone Screen, Urine Not Detected (NotDetected); Opiate Screen,Urine Not Detected (NotDetected); Oxycodone Screen, Urine Not Detected (NotDetected); Phencyclidine Screen,Urine Not Detected (NotDetected); Tricyclic Antidepressant,Urine Not Detected (NotDetected); Urn Cannabinoid Scrn Not Detected (NotDetected)
[2021-11-09 23:54] LABS: ALT 33 U/L (4-49); AST 36 U/L (17-59); African American GFR (CKD) >90 (>60 ml/min/1.73 sqM); Albumin 4.4 g/dL (3.5-5.0); Alkaline Phosphatase 62 U/L (38-126); Anion Gap 7 mmol/L; Blood Urea Nitrogen 5 mg/dL (9-20); Calcium 9.5 mg/dL (8.4-10.2); Carbon Dioxide 27 mmol/L (22-30); Chloride 108 mmol/L (98-107); Glucose 115 mg/dL (74-99); Lithium 0.5 mmol/L; Non-African American GFR(CKD) >90 (>60 ml/min/1.73 sqM); Potassium 3.8 mmol/L (3.5-5.1); Sodium 142 mmol/L (137-145); Total Bilirubin 0.2 mg/dL (0.2-1.3)
[2021-11-10] MEDS ORDERED: MAGNESIUM HYDROXIDE 2,400 MG/10 ML CUP PO PRN (03:55)
[2021-11-10] MEDS ORDERED: LORazepam 1 MG TAB PO PRN (03:55)
[2021-11-10] MEDS ORDERED: ACETAMINOPHEN TAB 325 MG TAB PO PRN (03:55)
[2021-11-10] MEDS ORDERED: HALOPERIDOL LACTATE 5 MG/ML 1 ML VIAL IM PRN (03:55)
[2021-11-10] MEDS ORDERED: MAG HYDROX/AL HYDROX/SIMETH 30 ML CUP PO PRN (03:55)
[2021-11-10] MEDS ORDERED: LORazepam 2 MG/ML INJ IM PRN (03:58)
[2021-11-10] MEDS ORDERED: haloperidoL 5 MG TAB PO PRN (03:58)
[2021-11-10] MEDS ORDERED: ALBUTEROL INHALER 60 PUFF/8 GM INHALER (MHU) INHALATION PRN (03:59)
[2021-11-10] MEDS: NICOTINE 14MG/24HR PATCH TRANSDERM SCH (08:43)
[2021-11-10] MEDS: LEVOTHYROXINE 50 MCG TAB PO SCH (08:43)
--- NOTE | 2021-11-10 15:13 | P.HP ---
Psychiatric H&P - . H&P Date: 11/10/21 History & Physical: IDENTIFYING DATA: The patient is a 31-year-old single male admitted to the psychiatric unit involuntarily with a history of confusion, poor self-care, insomnia and impulsiveness. HISTORY OF PRESENT ILLNESS: He is known to the psychiatric unit from prior admissions. His last discharged from unit October 2019 with a diagnosis of a bipolar disorder. His mother brought him to the hospital and completed a Petition for hospitalization that read "not caring for himself, walking in the room, jumped out of the car when stopped at a stop sign, not sleeping, not making sense." that his mother is also his legal guardian. He was unable to provide a clear and organized history of present illness. He was internally preoccupied and had difficulty concentrating and attending to the interview. He stated that his mother brought himthe hospital because she was having "too much fun. ... I live in the [facility] and she lives in the city. ... My mother and father . ... You know what I mean." He was unable to explain why his mother wanted him to come to the hospital or why she completed the petition. He did not give a clear and organized answer to questions regarding compliance with his psychotropic medications. He acknowledged that he is involved with [facility] and speaks with his prescription benefit specialist. He denied use of alcohol or drugs. PAST PSYCHIATRIC HISTORY: He has had multiple psychiatric hospitalizations since the onset of his illness around the age of 20. He has had past admissions related to his symptoms of depression, hypomania and dione. During these episodes of dione or hypomania he is grandiose, tangential and impulsive. This is his ninth admission to our psychiatric unit. He is active with [facility]. His last medication review was 10/26/2021. The psychiatrist noted that he was a little depressed but did not document signs and symptoms of dione, hypomania or psychosis. His psychotropic medications included lithium carbonate 1200 mg at bedtime, and Vrylar 6 mg at bedtime. PAST MEDICAL HISTORY: Other than history of hypothyroidism and has no major medical illnesses. He smokes approximately 1 pack of cigarettes per day. ALLERGIES: Aripiprazole SUBSTANCE USE HISTORY: He denied a history of substance use problems. FAMILY PSYCHIATRIC/SUBSTANCE USE HISTORY: He is unaware of family history of mental illness but according to record his mental illness symptoms maternal and paternal family. LEGAL HISTORY: His mother is his legal guardian. He is not on probation, parole or has pending charges SOCIAL HISTORY: He was raised in intact family. He has 2 sisters. His parents when he was 25 years old. He completed high school and obtained a bachelor's degree in arts in [place]. 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 He is unemployed and receives so security disability. He is single and has no children. He identifies himself as homosexual. MENTAL STATUS EXAM: He presented as a tall casually groomed male who was pleasant on approach. He made eye contact but appeared to have difficulty focusing and concentrating on the interview. He had no distinguishing features or prominent physical abnormalities. He had a bright facial expression at times smiled inappropriately during interview. He was alert and oriented to person, place and time. He was restless but not agitated. His speech was spontaneous with slight increase in rhythm and volume. His affect was labile. He denied suicidal ideation or wishes. He did not express homicidal ideation. No express feelings of hopelessness, helplessness or worthlessness. His did not express clear paranoid delusions or ideas of reference. His thinking was disorganized and illogical. He denied hallucinations but at times appeared to be responding to internal stimuli. Global impression of intellect is average to above. He is aware of her symptoms of mental illness and need for treatment. STRENGTHS: Good physical health. Stable housing, stable income, supportive family, engagement with community mental health services. WEAKNESSES: Chronic persistent mental illness IMPRESSION: He is a 31-year-old single male who has a history of bipolar illness. [facility] and symptoms of dione including confusion, decreased need for sleep, restlessness, poor impulse control and mood stability. I suspect that the decompensation is related to medication compliance since his lithium level on admission was 0.5. He agreed to treatment including prescription psychotropic medications. He should be treated inpatient basis with a combination of psychopharmacology and multimodal therapy. PRINCIPLE DIAGNOSIS: Bipolar Disorder most recent episode manic with psychotic symptoms, tobacco use disorder RECOMMENDATION: Admit to the psychiatric unit. Safety precautions. Voluntary admission. Consult medicine for initial physical exam and medical history. 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 Continue lithium carbonate 1200 mg at bedtime and monitor serum was remarkable. Continue 5 or 6 mg at bedtime (medications nonformulary and nursing staff will speak with his mother bring in his outpatient supply to the unit). Haldol or Ativan when necessary for agitation, aggression acute psychosis. Encourage participation in therapeutic groups and activities. Evaluate clinical status response to treatment daily basis. ] Allergies Allergy/AdvReac Type Severity Reaction Status Date / Time aripiprazole [From [facility]] AdvReac Swelling Verified 11/10/21 07:10 Vital Signs Temp 97.9 F 11/10/21 04:54 Pulse 81 11/10/21 08:00 Resp 18 11/10/21 04:54 BP 131/85 11/10/21 08:00 Pulse Ox 98 11/10/21 04:54 Intake & Output 11/09/21 11/10/21 11/10/21 18:59 06:59 18:59 Weight 98.656 kg Laboratory Last Values WBC 14.9 k/uL (3.8-10.6) H 11/09/21 21:42 RBC 4.88 m/uL (4.30-5.90) 11/09/21 21:42 Hgb 15.0 gm/dL (13.0-17.5) 11/09/21 21:42 Hct 45.6 % (39.0-53.0) 11/09/21 21:42 MCV 93.4 fL (80.0-100.0) 11/09/21 21:42 MCH 30.8 pg (25.0-35.0) 11/09/21 21:42 MCHC 32.9 g/dL (31.0-37.0) 11/09/21 21:42 RDW 13.2 % (11.5-15.5) 11/09/21 21:42 Plt Count 331 k/uL (150-450) 11/09/21 21:42 MPV 9.2 11/09/21 21:42 Neutrophils % 73 % 11/09/21 21:42 Lymphocytes % 18 % 11/09/21 21:42 Monocytes % 6 % 11/09/21 21:42 Eosinophils % 1 % 11/09/21 21:42 Basophils % 0 % 11/09/21 21:42 Neutrophils # 10.9 k/uL (1.3-7.7) H 11/09/21 21:42 Lymphocytes # 2.7 k/uL (1.0-4.8) 11/09/21 21:42 Monocytes # 0.8 k/uL (0-1.0) 11/09/21 21:42 Eosinophils # 0.2 k/uL (0-0.7) 11/09/21 21:42 Basophils # 0.1 k/uL (0-0.2) 11/09/21 21:42 Sodium 142 mmol/L (137-145) 11/09/21 22:56 Potassium 3.8 mmol/L (3.5-5.1) 11/09/21 22:56 Chloride 108 mmol/L (98-107) H 11/09/21 22:56 Carbon Dioxide 27 mmol/L (22-30) 11/09/21 22:56 Anion Gap 7 mmol/L 11/09/21 22:56 BUN 5 mg/dL (9-20) L 11/09/21 22:56 Creatinine 0.87 mg/dL (0.66-1.25) 11/09/21 22:56 Est GFR (CKD-EPI)AfAm >90 (>60 ml/min/1.73 sqM) 11/09/21 22:56 Est GFR (CKD-EPI)NonAf >90 (>60 ml/min/1.73 sqM) 11/09/21 22:56 Glucose 115 mg/dL (74-99) H 11/09/21 22:56 Calcium 9.5 mg/dL (8.4-10.2) 11/09/21 22:56 Total Bilirubin 0.2 mg/dL (0.2-1.3) 11/09/21 22:56 AST 36 U/L (17-59) 11/09/21 22:56 ALT 33 U/L (4-49) 11/09/21 22:56 Alkaline Phosphatase 62 U/L (38-126) 11/09/21 22:56 Total Protein 7.0 g/dL (6.3-8.2) 11/09/21 22:56 Albumin 4.4 g/dL (3.5-5.0) 11/09/21 22:56 Urine Color Light Yellow 11/09/21 21:20 Urine Appearance Clear (Clear) 11/09/21 21:20 Urine pH 7.0 (5.0-8.0) 11/09/21 21:20 Ur Specific [place] 1.005 (1.001-1.035) 11/09/21 21:20 Urine Protein Negative (Negative) 11/09/21 21:20 Urine Glucose (UA) Negative (Negative) 11/09/21 21:20 Urine Ketones Negative (Negative) 11/09/21 21:20 Urine Blood Negative (Negative) 11/09/21 21:20 Urine Nitrite Negative (Negative) 11/09/21 21:20 Urine Bilirubin Negative (Negative) 11/09/21 21:20 Urine Urobilinogen <2.0 mg/dL (<2.0) 11/09/21 21:20 Ur Leukocyte Esterase Small (Negative) H 11/09/21 21:20 Urine RBC 2 /hpf (0-5) 11/09/21 21:20 Urine WBC 4 /hpf (0-5) 11/09/21 21:20 Urine Opiates Screen Not Detected (NotDetected) 11/09/21 21:45 Ur Oxycodone Screen Not Detected (NotDetected) 11/09/21 21:45 Urine Methadone Screen Not Detected (NotDetected) 11/09/21 21:45 Ur Propoxyphene Screen Not Detected (NotDetected) 11/09/21 21:45 Ur Barbiturates Screen Not Detected (NotDetected) 11/09/21 21:45 U Tricyclic Antidepress Not Detected (NotDetected) 11/09/21 21:45 Ur Phencyclidine Scrn Not Detected (NotDetected) 11/09/21 21:45 Ur Amphetamines Screen Not Detected (NotDetected) 11/09/21 21:45 U Methamphetamines Scrn Not Detected (NotDetected) 11/09/21 21:45 U Benzodiazepines Scrn Not Detected (NotDetected) 11/09/21 21:45 [place] 0.5 mmol/L 11/09/21 22:56 Urine Cocaine Screen Not Detected (NotDetected) 11/09/21 21:45 U Marijuana (THC) Screen Not Detected (NotDetected) 11/09/21 21:45 Coronavirus (PCR) Not Detected (Not Detectd) 11/09/21 21:42 11/10/21 11:23 11/10/21 15:11
[2021-11-10] MEDS: LITHIUM CARBONATE 300 MG CAP PO SCH (20:55)
[2021-11-10] MEDS: NON FORMULARY DRUG (Cariprazine Hcl [Vraylar] 6 MG Capsule) PO SCH (20:55)
[2021-11-11] MEDS: LEVOTHYROXINE 50 MCG TAB PO SCH (06:42)
[2021-11-11 06:56] VITALS: RESP 16
[2021-11-11 08:05] LABS: ALT 39 U/L (4-49); AST 40 U/L (17-59); Albumin 4.3 g/dL (3.5-5.0); Alkaline Phosphatase 63 U/L (38-126); Bilirubin,Unconjugated 0.5 mg/dL (0.0-1.1); Total Bilirubin 0.4 mg/dL (0.2-1.3)
[2021-11-11] MEDS: NICOTINE 14MG/24HR PATCH TRANSDERM SCH (08:55)
[2021-11-11 12:18] LABS: LDL Cholesterol,Calculated 74.5 mg/dL (0.0-131.0)
--- NOTE | 2021-11-11 14:58 | P.PN ---
Progress Note - Text Progress Note Date: 11/11/21 Clinical Problems: Bipolar Disorder most recent episode manic with psychotic symptoms, tobacco use disorder Interim history: I reviewed the medical record, interviewed the patient and discussed the treatment and treatment plan with the treatment team. He was animated and verbose throughout the interview. The contact of his speech involved metaphysical themes and brought abstract generalizations sometimes jumping from topic to topic. However, one recurrent team was that he does not have a mental illness and should not be taking psychiatric medications. The ACT team brought in his outpatient supply of Vraylar and lithium and we administered the first dose of Vraylar last night. We administered 1 mg of Ativan and 5 mg of Haldol yesterday evening for what nursing described as "bizarre behavior" where he was doing karate kicks in the lounge and was also found in the rooms of 2 different female patients. He intermittently attends therapeutic groups and activities. He slept 7 hours last night. Mental status exam: He presented moderately obese 31-year-old male who was pleasant on approach. He made eye contact and appeared to attend to the interview. He had a euphoric facial expression. He showed the ability psychomotor activity; he was not restless or agitated. Her speech was spontaneous with some increase in rate and rhythm. His affect was elevated but not inappropriate. He did not express suicidal ideation, wish homicidal ideation. He denied feeling hopeless, helpless or worthless. He did not express clear ideas reference or paranoid delusions. His thinking was overly abstract, obtuse and philosophical. At times he appeared to be responding to internal stimuli but denied experiencing auditory or visual hallucinations. Assessment: He continued show signs and symptoms of dione including inappropriately elevated mood, impulsiveness, impaired judgment and disorganized thinking. Plan: Continue inpatient treatment. Safety precautions. Continue Vraylar 6 mg daily and lithium carbonate 1200 mg at bedtime. Consider a long-acting inject able. Encourage participation in therapeutic groups and activities. Evaluate clinical status response to treatment daily basis.
[2021-11-11] MEDS: LITHIUM CARBONATE 300 MG CAP PO SCH (20:24)
[2021-11-11] MEDS: NON FORMULARY DRUG (Cariprazine Hcl [Vraylar] 6 MG Capsule) PO SCH (20:24)
--- NOTE | 2021-11-12 02:11 | P.CONS ---
History of Present Illness - Reason for Consult Consult date: 11/11/21 - History of Present Illness Patient is a 31-year-old male with a PMH of bipolar disorder and psoriasis was brought into the emergency room by his mother for strange behavior. The patient was admitted to the mental health unit where he was seen and evaluated. 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 He reports smoking 2 packs of cigarettes daily but denied any substance use. Denied any physical complaints at the time of interview. Denied experiencing fever, chills, chest pain, shortness of breath, nausea, vomiting, abdominal pain, diarrhea. Laboratory evaluation was remarkable for WBC count of 14.9. Review of systems: Pertinent positives and negatives as discussed in HPI, a complete review of systems was performed and all other systems are negative. Physical examination: General: non toxic, no distress, appears at stated age, obese Derm: no unusual rashes/lesions no unusual ecchymoses, warm, dry Head: atraumatic, normocephalic, symmetric Eyes: EOMI, no lid lag, anicteric sclera, pupils equal round reactive to light ENT: Nose and ears atraumatic, no thrush, no pharyngeal erythema Neck: No thyromegaly, no cervical lymphadenopathy, trachea midline, supple Mouth: no lip lesion, mucus membranes moist Cardiovascular: S1S2 reg, no murmur, positive posterior tibial pulse bilateral, no edema, capillary refill less than 2 seconds Lungs: CTA bilateral, no rhonchi, no rales , no accessory muscle use Abdominal: soft, nontender to palpation, no guarding, no appreciable organomegaly, normal bowel sounds Ext: no gross muscle atrophy, muscle strength 5 out of 5 in all 4 extremities grossly, no contractures, Neuro: CN II-XI grossly intact, light touch intact all 4 extremities, finger to nose within normal limits, Psych: Alert, oriented, appropriate affect Assessment/plan Leukocytosis -No signs of active infection at this time -Likely due to acute stressor Tobacco abuse -Advised on importance of cessation Psychosis -As per psychiatry Thank you for allowing us to participate in the care of this patient. We will follow peripherally. Do not hesitate to contact us with questions. Someone can be reached from the [facility] hospitalist group at all hours of the day at [phone]. Past Medical History Past Medical History: Thyroid Disorder History of Any Multi-Drug Resistant Organisms: None Reported Past Surgical History: No Surgical Hx Reported Additional Past Surgical History / Comment(s): Fracture in left wrist repaired as a child Past Anesthesia/Blood Transfusion Reactions: No Reported Reaction Past Psychological History: Anxiety, Bipolar Smoking Status: Current every day smoker Past Alcohol Use History: None Reported Additional Past Alcohol Use History / Comment(s): Patient is a smoker of one pack per day since he was 17 years of age. He does have history of marijuana use and Adderall abuse but he denies any recently. Past Drug Use History: None Reported Additional Drug Use History / Comment(s): Alcohol- Pt states that he drank one glass of wine yesterday, Pt denies any daily alcohol use. - Past Family History Father Additional Family Medical History / Comment(s): Father is alive at age 52 with history of alcohol abuse. Mother History Unknown: Yes Family Medical History: Diabetes Mellitus Additional Family Medical History / Comment(s): Mother is alive at age 51 with history of diabetes. Patient does not have any brothers. Patient has 2 sisters and one has anxiety. Medications and Allergies Home Medications Medication Instructions Recorded Confirmed Type Levothyroxine Sodium [Synthroid] 50 mcg PO DAILY 09/23/19 11/09/21 History [place] Carbonate 1,200 mg PO HS #60 cap 11/05/19 11/09/21 Rx Albuterol Inhaler [Ventolin Hfa 2 puff INHALATION RT-QID PRN 11/09/21 11/09/21 History Inhaler] Cariprazine HCl [Vraylar] 6 mg PO HS 11/09/21 11/09/21 History Allergies Allergy/AdvReac Type Severity Reaction Status Date / Time aripiprazole [From Abilify] AdvReac Swelling Verified 11/10/21 07:10 Physical Exam Vitals: Vital Signs Temp Pulse Resp BP 11/11/21 06:31 97.1 F L 114 H 16 126/80 Results CBC & Chem 7: 11/09/21 21:42 11/09/21 22:56
[2021-11-12] MEDS: LEVOTHYROXINE 50 MCG TAB PO SCH (06:06)
[2021-11-12] MEDS: NICOTINE 14MG/24HR PATCH TRANSDERM SCH (10:29)
--- NOTE | 2021-11-12 16:01 | P.PN ---
Progress Note - Text Progress Note Date: 11/12/21 Clinical Problems: Bipolar disorder most for this episode manic with psychotic features, tobacco use disorder Interim history: I reviewed the medical record and interviewed the patient. His only concern was increased for activity from the multiple admissions. He talked about feeling more relaxed, focused and calm. He has less restless and intrusive than on admission. He has been compliant with prescribed medications. Medical consult appreciated. Mental status exam: Presented as a casually groomed 31-year-old male who was pleasant on approach. He made eye contact and attended to the interview. He had a bright facial expression. He had no abnormality of psychomotor activity. His speech was spontaneous with normal rate and rhythm. His affect was stable and appropriate. He did not express magical ideation or delusions. His thinking was concrete but his associations were coherent, logical and goal directed. Assessment: He is moderately improve from admission with a decrease in manic symptoms. Plan: Continue inpatient treatment. Safety precautions. Continue current medications. Encourage participation in therapeutic groups and activities. Evaluate clinical status and response to treatment daily basis.
[2021-11-12] MEDS: NON FORMULARY DRUG (Cariprazine Hcl [Vraylar] 6 MG Capsule) PO SCH (21:11)
[2021-11-12] MEDS: LITHIUM CARBONATE 300 MG CAP PO SCH (21:11)
[2021-11-13] MEDS: LEVOTHYROXINE 50 MCG TAB PO SCH (06:14)
[2021-11-13 07:03] VITALS: BP 122/72; PULSE 67; TEMP 97.7
[2021-11-13] MEDS: NICOTINE 14MG/24HR PATCH TRANSDERM SCH (10:15)
--- NOTE | 2021-11-13 12:34 | P.PN ---
Progress Note - Text Progress Note Date: 11/13/21 Clinical Problems: Bipolar disorder most for this episode manic with psychotic features, tobacco use disorder Interim history: I reviewed the medical record and interviewed the patient. He denied problems and concerns other than wishing to be discharge. He denied side effects to his psychotropic medications. He indirectly acknowledge that the admission was related to noncompliance. Mental status exam: He presented as a casually groomed 31-year-old male who was pleasant on approach. He made eye contact and attended to the interview. He had a bright facial expression. He had no abnormality of psychomotor activity. His speech was spontaneous with normal rate and rhythm. His affect was stable and appropriate. He did not express magical ideation or delusions. His thinking was concrete but his associations were coherent, logical and goal directed. Assessment: He is much improve from admission with a decrease in manic symptoms. Plan: Continue inpatient treatment. Safety precautions. Continue current medications. Encourage participation in therapeutic groups and activities. Evaluate clinical status and response to treatment daily basis.
[2021-11-13] MEDS: LITHIUM CARBONATE 300 MG CAP PO SCH (21:20)
[2021-11-13] MEDS: NON FORMULARY DRUG (Cariprazine Hcl [Vraylar] 6 MG Capsule) PO SCH (21:20)
[2021-11-14] MEDS: LEVOTHYROXINE 50 MCG TAB PO SCH (06:42)
[2021-11-14] MEDS: NICOTINE 14MG/24HR PATCH TRANSDERM SCH (08:51)
--- NOTE | 2021-11-14 13:19 | P.DS ---
Providers Date of admission: 11/10/21 03:52 Attending physician: Efrain Segovia MD Consults: 11/10/21 03:55 Consult Physician Routine Consulting Provider: Ananya Pettit Consult Reason/Comments: medical H&P Do you want consulting provider notified?: Yes Primary care physician: Stated None - Discharge Diagnosis(es) (1) Bipolar I disorder, recurrent manic episode Current Visit: Yes Status: Chronic Priority: High (2) Poor compliance with medication Current Visit: Yes Status: Acute Priority: High (3) Tobacco use Current Visit: Yes Status: Chronic Priority: Low Hospital Course: HISTORY: He is a 31-year-old single male admitted to the psychiatric unit involuntarily with a history of confusion, poor self-care, insomnia and impulsiveness. He is known to the psychiatric unit from prior admissions. His last discharged from unit October 2019 with a diagnosis of a bipolar disorder. His mother brought him to the hospital and completed a Petition for hospitalization that read "not caring for himself, walking in the room, jumped out of the car when stopped at a stop sign, not sleeping, not making sense." that his mother is also his legal guardian. He was unable to provide a clear and organized history of present illness. He was internally preoccupied and had difficulty concentrating and attending to the interview. He stated that his mother brought himthe hospital because she was having "too much fun. ... I live in the [facility] and she lives in the city. ... My mother and father . ... You know what I mean." He was unable to explain why his mother wanted him to come to the hospital or why she completed the petition. He did not give a clear and organized answer to questions regarding compliance with his psychotropic medications. He acknowledged that he is involved with [facility] and speaks with his data review specialist. He denied use of alcohol or drugs. He has had multiple psychiatric hospitalizations since the onset of his illness around the age of 20. He has had past admissions related to his symptoms of depression, hypomania and dione. During these episodes of dione or hypomania he is grandiose, tangential and impulsive. This is his ninth admission to our psychiatric unit. He is active with [facility]. His last medication review was 10/26/2021. The psychiatrist noted that he was a little depressed but did not document signs and symptoms of dione, hypomania or psychosis. His psychotropic medications included lithium carbonate 1200 mg at bedtime, and Vrylar 6 mg at bedtime. HOSPITAL COURSE: We admitted him to the psychiatric unit under the care of this principal technical writer initially under involuntary status. However, he grade to a voluntary admission. We provided a comprehensive biopsychosocial assessment. The data consultant refrigerating technician completed initial physical exam and medical history and only diagnosed leukocytosis likely due to a current stressor. We restarted his outpatient medications-Vraylar 6 mg at bedtime and lithium carbonate 1200 mg at bedtime. We prescribed NicoDerm for smoking cessation. He showed signs and symptoms of acute dione on presentation to the unit. After we restarted his outpatient medications his symptoms improved suggesting that his decompensation was related to noncompliance. He posed no management problem had no episodes of behavioral dyscontrol. He participated actively in therapeutic groups and activities. MENTAL STATUS ON DISCHARGE: At the time of discharge she presented as a casually groomed moderately obese male who was pleasant on approach. He made eye contact and attended to the interview. He had no distinguishing features or prominent physical abnormalities. He had a bright but blunted facial expression. He showed no abnormality of psychomotor activity. His speech was spontaneous with normal rate, rhythm and volume. His affect was bright, stable and appropriate. He denied suicidal ideation or wishes. He denied homicidal ideation. He did not express ideas reference, paranoid ideation or delusions. His thinking was concrete but his associations were coherent, logical and goal directed. He denied hallucinations did not appear to be responding to internal stimuli. DISPOSITION: Her returning to his former address. He will follow-up with the ACT team through [facility] after discharge. Patient Condition at Discharge: Fair Plan - Discharge Summary Discharge Rx Participant: No New Discharge Prescriptions: New Nicotine 14Mg/24Hr Patch [Habitrol] 1 patch TRANSDERM DAILY #14 patch Continue Levothyroxine Sodium [Synthroid] 50 mcg PO DAILY [place] Carbonate 1,200 mg PO HS #60 cap Cariprazine HCl [Vraylar] 6 mg PO HS Albuterol Inhaler [Ventolin Hfa Inhaler] 2 puff INHALATION RT-QID PRN PRN Reason: Shortness Of Breath Discharge Medication List Levothyroxine Sodium [Synthroid] 50 mcg PO DAILY 03/31/20 [History] [place] Carbonate 1,200 mg PO HS #60 cap 11/05/19 [Rx] Albuterol Inhaler [Ventolin Hfa Inhaler] 2 puff INHALATION RT-QID PRN 11/09/21 [History] Cariprazine HCl [Vraylar] 6 mg PO HS 11/09/21 [History] Nicotine 14Mg/24Hr Patch [Habitrol] 1 patch TRANSDERM DAILY #14 patch 11/14/21 [Rx] Follow up Appointment(s)/Referral(s): None,Stated [Primary Care Provider] - 1-2 days Activity/Diet/Wound Care/Special Instructions: Activity and diet as tolerated. Avoid the use of street drugs and alcohol. Take all medications as prescribed. When you are in need of refills on your medications please contact your medical provider and/or outpatient psychiatrist to have this done. Please go to scheduled outpatient appointment for aftercare treatment. If symptoms return or become worse, call the crisis line at and/or go to the nearest emergency room for evaluation
== END 2021-11-14 17:35 | disposition home or self-care (01) | DRG 885 ==
LOC: EC 19:40 → 3MHU 11-10 03:52
PROVIDERS: ADMIT Psychiatry & Neurology Psychiatry; ATTEND Psychiatry & Neurology Psychiatry
DX: F31.89 Other bipolar disorder (principal); R45.851 Suicidal ideations; E03.9 Hypothyroidism, unspecified; F17.200 Nicotine dependence, unspecified, uncomplicated; F41.9 Anxiety disorder, unspecified; Z79.890 Hormone replacement therapy; Z83.3 Family history of diabetes mellitus; Z91.14 Patient's other noncompliance with medication regimen; Z91.19 Patient's noncompliance with other medical treatment and regimen; Z20.822 Contact with and (suspected) exposure to COVID-19
CPT/HCPCS: 36415; 80053; 80061; 80076; 80178; 80306; 81001; 82075; 83036; 84443; 85025; 87635; 99285

== ENCOUNTER → 2024-09-27 | Outpatient (CLI) | payer OTHER ==
[2024-09-28 06:27] LABS: Basophils # (A) 0.04 X 10*3/uL (0.00-0.10); Basophils % (A) 0.4 %; Eosinophils # (A) 0.27 X 10*3/uL (0.04-0.35); Eosinophils % (A) 2.9 %; HCT 45.6 % (39.6-50.0); HGB 15.4 g/dL (13.0-17.0); Lymphocytes # (A) 2.28 X 10*3/uL (0.90-5.00); Lymphocytes % (A) 24.6 %; MCH 31.7 pg (27.0-32.0); MCHC 33.8 g/dL (32.0-37.0); MCV 93.8 FL (80.0-97.0); Mean Platelet Volume 11.1 FL (9.5-12.2); Monocytes # (A) 0.63 X 10*3/uL (0.20-1.00); Monocytes % (A) 6.8 %; NRBC Per 100 WBC 0 X 10*3/uL (0.00-0.01); Platelet Count 291 X 10*3/uL (140-440); RBC 4.86 X 10*6/uL (4.40-5.60); RDW 12.2 % (11.5-14.5); WBC 9.25 X 10*3/uL (4.50-10.00)
[2024-09-28 09:49] LABS: BUN/Creat Ratio 9.25 Ratio (12.00-20.00); Blood Urea Nitrogen 7.4 mg/dL (9.0-27.0); Carbon Dioxide 24.8 mmol/L (21.6-31.8); Chloride 112 mmol/L (96-109); Chol/HDL Ratio 5.32 Ratio; Glucose 96 mg/dL (70-110); LDL Cholesterol,Calculated 152.3 mg/dL (0.0-131.0); Potassium 4.8 mmol/L (3.5-5.5); Sodium 147 mmol/L (135-145)
[2024-09-28 09:50] LABS: ALT 63 U/L (10-49); AST 32 U/L (14-35); Albumin 4.3 g/dL (3.8-4.9); Albumin/Globulin Ratio 1.79 Ratio (1.60-3.17); Alkaline Phosphatase 55 U/L (41-126); Calcium 9.1 mg/dL (8.7-10.3); Globulin 2.4 g/dL (1.6-3.3); Total Bilirubin 0.3 mg/dL (0.3-1.2); Total Protein 6.7 g/dL (6.2-8.2)
[2024-09-28 11:36] LABS: Hepatitis A Antibody IgM Nonreactive (Nonreactive); Hepatitis B Core IgM Nonreactive (Nonreactive); Hepatitis B Surface Antigen Nonreactive (Nonreactive); Hepatitis C IgG Antibody Nonreactive (Nonreactive)
== END | disposition home or self-care (01) ==
LOC: LABWHC1 11:39
PROVIDERS: ATTEND Dermatology
DX: L40.0 Psoriasis vulgaris (principal); L73.2 Hidradenitis suppurativa
CPT/HCPCS: 36415; 80053; 80061; 80074; 85025; 86480

== ENCOUNTER → 2024-11-29 | Outpatient (CLI) | payer OTHER ==
[2024-11-29 12:50] LABS: Basophils # (A) 0.07 X 10*3/uL (0.00-0.10); Basophils % (A) 0.8 %; Eosinophils # (A) 0.17 X 10*3/uL (0.04-0.35); Eosinophils % (A) 1.8 %; HCT 48.1 % (39.6-50.0); HGB 15.8 g/dL (13.0-17.0); Lymphocytes # (A) 3.03 X 10*3/uL (0.90-5.00); Lymphocytes % (A) 32.8 %; MCH 31.9 pg (27.0-32.0); MCHC 32.8 g/dL (32.0-37.0); MCV 97.2 FL (80.0-97.0); Mean Platelet Volume 10.2 FL (9.5-12.2); Monocytes # (A) 0.48 X 10*3/uL (0.20-1.00); Monocytes % (A) 5.2 %; NRBC Per 100 WBC 0 X 10*3/uL (0.00-0.01); Neutrophils # (A) 5.43 X 10*3/uL (1.80-7.70); Neutrophils % (A) 58.9 %; Platelet Count 300 X 10*3/uL (140-440); RBC 4.95 X 10*6/uL (4.40-5.60); RDW 12.6 % (11.5-14.5); WBC 9.23 X 10*3/uL (4.50-10.00)
[2024-11-29 13:23] LABS: ALT 73 U/L (10-49); AST 36 U/L (14-35); Albumin 4.4 g/dL (3.8-4.9); Albumin/Globulin Ratio 1.76 Ratio (1.60-3.17); Alkaline Phosphatase 56 U/L (41-126); BUN/Creat Ratio 5.78 Ratio (12.00-20.00); Blood Urea Nitrogen 5.2 mg/dL (9.0-27.0); Calcium 9.3 mg/dL (8.7-10.3); Carbon Dioxide 26.1 mmol/L (21.6-31.8); Chloride 104 mmol/L (96-109); Globulin 2.5 g/dL (1.6-3.3); Glucose 104 mg/dL (70-110); LDL Cholesterol,Calculated 131.2 mg/dL (0.0-131.0); Potassium 4.5 mmol/L (3.5-5.5); Sodium 140 mmol/L (135-145); T4, Free (Free Thyroxine) 1.14 ng/dL (0.80-1.80); Total Bilirubin 0.2 mg/dL (0.3-1.2); Total Protein 6.9 g/dL (6.2-8.2)
== END | disposition home or self-care (01) ==
LOC: LABWHC1 09:33
PROVIDERS: ATTEND Psychiatry & Neurology Psychiatry
DX: F31.13 Bipolar disorder, current episode manic without psychotic features, severe (principal)
CPT/HCPCS: 36415; 80053; 80061; 80178; 82306; 83036; 84439; 84443; 85025